=== PATIENT | female | born 1965 | race Caucasian/White ===

== ENCOUNTER 2020-08-29 20:01 | Emergency (ER) | payer MEDICARE ==
[~2020-08-29] VITALS: Ht 177.8 cm; Wt 81.7 kg
[2020-08-29 20:37] LABS: BASOPHILS ABSOLUTE AUTO 0.03 K/mm3 (0.00-0.23); BASOPHILS PERCENT AUTO 0 % (0-2); EOSINOPHILS ABSOLUTE AUTO 0.03 K/mm3 (0.00-0.68); EOSINOPHILS PERCENT AUTO 0 % (0-6); Hematocrit 46.1 % (33.0-51.0); Hemoglobin 16.2 g/dL (11.5-16.0); IMMATURE GRAN ABSOLUTE AUTO 0.04 K/mm3 (0.00-0.10); IMMATURE GRAN PERCENT AUTO 0 % (0-1); LYMPHOCYTES ABSOLUTE AUTO 0.98 K/mm3 (0.84-5.20); LYMPHOCYTES PERCENT AUTO 10 % (21-46); MONOCYTES ABSOLUTE AUTO 0.61 K/mm3 (0.16-1.47); MONOCYTES PERCENT AUTO 6 % (4-13); Mean Corpuscular HGB 31.5 pg (26.0-34.0); Mean Corpuscular HGB Conc 35.1 g/dL (31.5-36.5); Mean Corpuscular Volume 90 fL (80-100); Mean Platelet Volume 10.8 fL (9.1-12.4); NEUTROPHILS ABSOLUTE AUTO 8.19 K/mm3 (1.96-9.15); NEUTROPHILS PERCENT AUTO 83 % (41-73); Platelet Count 316 K/mm3 (150-400); RDW Coefficient Variation 12.8 % (11.7-14.2); RDW Standard Deviation 41.5 fL (35.1-46.3); Red Blood Cell Count 5.15 M/mm3 (3.80-5.20); White Blood Cell Count 9.88 K/mm3 (4.00-11.30)
[2020-08-29 20:53] LABS: Alanine Aminotransfer (ALT/SGP 34 U/L (12-78); Albumin/Globulin Ratio 0.9 (0.8-1.8); Alk Phos 68 U/L (50-136); Anion Gap 9 mmol/L (6-16); Aspartate Aminotrans (AST/SGOT 22 U/L (12-37); Bilirubin, Total 0.7 mg/dL (0.1-1.0); Blood Urea Nitrogen 33 mg/dL (8-24); Bun/Creatinine Ratio 46.4 (12.0-20.0); CO2, Blood 25 mmol/L (21-32); Chloride, Blood 102 mmol/L (98-108); Creatinine, Blood 0.71 mg/dL (0.40-1.00); Globulin, Blood 4.3 g/dL (2.2-4.0); Glomerular Filtration Rate >60 (60-); Glucose, Blood 361 mg/dL (70-99); Potassium, Blood 4.3 mmol/L (3.5-5.5); Sodium, Blood 136 mmol/L (136-145); Total Protein, Blood 8.3 g/dL (6.4-8.2)
[2020-08-30 00:50] LABS: Source, Urine Clean Catch
[2020-08-30 00:52] LABS: Bilirubin, Urine Neg (Neg); Blood, Urine 2+ (Neg); Glucose Qualitative, Urine 4+ (Neg); Ketones, Urine 4+ (Neg); Leukocyte Esterase, Urine Neg (Neg); Nitrite, Urine Neg (Neg); Protein, Urine 3+ (Neg); Urobilinogen, Urine NORM (Normal)
[2020-08-30 00:58] LABS: Amorphous Mod (0-Heavy); Appearance, Urine Hazy (Clear); Bacteria Rare /hpf; Color, Urine Yellow (P-Yellow); Red Blood Cells, Urine 0-2 /hpf (0-2); Squamous Epithelial Cells Few /hpf (Few); White Blood Cells, Urine Not Seen /hpf (0-5)
[2020-08-30 01:15] LABS: U Amphetamine Screen DETECTED; U Barbituate Screen Not Detected; U Benzodiazapine Screen Not Detected; U Buprenorphine Screen Not Detected; U Cannabinoids Screen Not Detected; U Cocaine Screen Not Detected; U Methadone Screen Not Detected; U Methamphetamine Screen DETECTED; U Opiates Screen Not Detected; U Oxycodone Screen Not Detected; U Phencyclidine Screen Not Detected; U Propoxyphene Screen Not Detected
[2020-08-30] MEDS ORDERED: Clindamycin HC300 MG PO (02:12)
== END 2020-08-30 04:10 | disposition home or self-care (01) ==
LOC: ER 20:01
PROVIDERS: Emergency Medicine; Physician Assistant
DX: E11.65 Type 2 diabetes mellitus with hyperglycemia (principal); E86.0 Dehydration; E11.40 Type 2 diabetes mellitus with diabetic neuropathy, unspecified
CPT/HCPCS: 51701; 71045; 73620; 80053; 81001; 82947; 84484; 85025; 93005; 93010; 96374-59; 96375-59; 96376; 99285-25; J2060; J2405; J7120

== ENCOUNTER 2020-10-27 16:44 | Inpatient (IN) | payer MEDICARE ==
[~2020-10-27] VITALS: Ht 177.8 cm; Wt 89.5 kg
[~2020-10-27 16:44] MED LIST: Clindamycin HC300 MG PO
[2020-10-27 17:38] LABS: BASOPHILS ABSOLUTE AUTO 0.07 K/mm3 (0.00-0.23); BASOPHILS PERCENT AUTO 0 % (0-2); EOSINOPHILS ABSOLUTE AUTO 0.05 K/mm3 (0.00-0.68); EOSINOPHILS PERCENT AUTO 0 % (0-6); Hematocrit 45.5 % (33.0-51.0); Hemoglobin 15.2 g/dL (11.5-16.0); IMMATURE GRAN ABSOLUTE AUTO 0.08 K/mm3 (0.00-0.10); IMMATURE GRAN PERCENT AUTO 0 % (0-1); LYMPHOCYTES ABSOLUTE AUTO 0.38 K/mm3 (0.84-5.20); LYMPHOCYTES PERCENT AUTO 2 % (21-46); MONOCYTES ABSOLUTE AUTO 1.29 K/mm3 (0.16-1.47); MONOCYTES PERCENT AUTO 7 % (4-13); Mean Corpuscular HGB 31.5 pg (26.0-34.0); Mean Corpuscular HGB Conc 33.4 g/dL (31.5-36.5); Mean Corpuscular Volume 94 fL (80-100); Mean Platelet Volume 11.3 fL (9.1-12.4); NEUTROPHILS ABSOLUTE AUTO 17.09 K/mm3 (1.96-9.15); NEUTROPHILS PERCENT AUTO 90 % (41-73); Platelet Count 267 K/mm3 (150-400); RDW Coefficient Variation 13.1 % (11.7-14.2); RDW Standard Deviation 45.8 fL (35.1-46.3); Red Blood Cell Count 4.83 M/mm3 (3.80-5.20); White Blood Cell Count 18.96 K/mm3 (4.00-11.30)
[2020-10-27 18:04] LABS: Source, Urine Clean Catch
[2020-10-27 18:10] LABS: Appearance, Urine Clear (Clear); Bilirubin, Urine Neg (Neg); Blood, Urine 1+ (Neg); Color, Urine Yellow (P-Yellow); Glucose Qualitative, Urine 4+ (Neg); Ketones, Urine 3+ (Neg); Leukocyte Esterase, Urine Neg (Neg); Nitrite, Urine Neg (Neg); Protein, Urine Neg (Neg); Specific Gravity, Urine 1.015 (1.003-1.022); Urobilinogen, Urine NORM (Normal)
[2020-10-27 18:16] LABS: Ethanol (Alcohol), Blood, Med <3 mg/dL; Magnesium, Blood 2.1 mg/dL (1.6-2.4)
[2020-10-27 18:20] LABS: Bacteria Rare /hpf; Red Blood Cells, Urine 0-2 /hpf (0-2); Squamous Epithelial Cells Few /hpf (Few); White Blood Cells, Urine Rare /hpf (0-5)
[2020-10-27 18:20] LABS: Alanine Aminotransfer (ALT/SGP 29 U/L (12-78); Albumin/Globulin Ratio 0.6 (0.8-1.8); Alk Phos 108 U/L (50-136); Anion Gap 19 mmol/L (6-16); Aspartate Aminotrans (AST/SGOT 13 U/L (12-37); Bilirubin, Total 0.7 mg/dL (0.1-1.0); Blood Urea Nitrogen 26 mg/dL (8-24); Bun/Creatinine Ratio 31.2 (12.0-20.0); C-REACTIVE PROTEIN, EXT RANGE >19.000 mg/dL (0.000-0.300); CO2, Blood 18 mmol/L (21-32); Calcium, Blood 9.4 mg/dL (8.5-10.1); Chloride, Blood 92 mmol/L (98-108); Creatinine, Blood 0.83 mg/dL (0.40-1.00); Globulin, Blood 4.8 g/dL (2.2-4.0); Glomerular Filtration Rate >60 (60-); Glucose, Blood 747 mg/dL (70-99); Potassium, Blood 4.5 mmol/L (3.5-5.5); Sodium, Blood 129 mmol/L (136-145); Total Protein, Blood 7.8 g/dL (6.4-8.2)
[2020-10-27 18:26] LABS: U Oxycodone Screen DETECTED
[2020-10-27 18:27] LABS: U Amphetamine Screen Not Detected; U Barbituate Screen Not Detected; U Benzodiazapine Screen Not Detected; U Buprenorphine Screen Not Detected; U Cannabinoids Screen Not Detected; U Cocaine Screen Not Detected; U Methadone Screen Not Detected; U Methamphetamine Screen Not Detected; U Opiates Screen Not Detected; U Phencyclidine Screen Not Detected; U Propoxyphene Screen Not Detected
[2020-10-27 18:29] LABS: SARS-Cov-2 (COVID-19) PCR, MMC NEGATIVE (NEGATIVE)
[2020-10-27 18:31] LABS: Base Excess Venous -8.6 mmol/L; Bicarbonate Venous 17.9 mmol/L (24.0-30.0); PCO2 Venous 37.1 mmHg (38-42); PO2 Venous 54.9 mmHg (38-42); pH Blood Venous 7.29 (7.34-7.37)
--- NOTE | 2020-10-27 22:00 | NUR ---
RECEIVED HAND OFF FROM Garth MARK RN USING SBAR. TRANSPORTE TO ROOM PCU12 VIA STRETCHER. TRANSFERED SELF TO BED WITH STANDBY ASSIST, TOLERATED WELL. AAO X3, [place], FOLLOWS ALL COMMANDS. ORIENTE TO ROOM, CALL SYSTEM, AND POC, VOICES UNDERSTANDING. RESPIRATIONS EVEN AND UNLABORED ON ROOM AIR. LUNG SOUNDS CLEAR BILTERALLY. ER COVID TEST NEGATIVE. ABDOMEN SOFT AND NONDISTENDED. BOWEL SOUNDS IN ALL QUADS. LEFT HAND/WRIST 20G SL PIV IS PATENT, FLUSHING WITH EASE. NS AND INSULIN GTT TO BE STARTED. BLE CLEANED AND CELLULITIS DOCUMENTED AND WRAPPED IN CLEAN ABD PADS AND GAUZE. SOCKS PLACED OVER WRAPPING. RATES PAIN AT 9/10, STATES SLIGHTLY IMPROVED AT 8/10 AFTER WRAPPING THEM UP. DENIES FURTHER NEEDS OR WANTS AT THIS TIME. SAFETY MEASURES IN PLACE. ADMISSION ASSESSMENT IN PROGERESS. WILL CONTINUE TO MONITORAND ADDRESS NEEDS THEY ARISE.
[2020-10-27 22:13] LABS: Glucose, Blood 613 mg/dL (70-99)
[2020-10-27 23:43] LABS: Glucose, Blood 551 mg/dL (70-99)
[2020-10-27] MEDS ORDERED: GLIP5 PO ×2 (23:45→23:46)
[2020-10-27] MEDS ORDERED: HUMALOG KW100 UNIT/1 SC ×3 (23:48→23:50)
[2020-10-27] MEDS ORDERED: INSULANI SC (23:51)
[2020-10-28 01:26] LABS: Anion Gap 12 mmol/L (6-16); Blood Urea Nitrogen 26 mg/dL (8-24); Bun/Creatinine Ratio 31.6 (12.0-20.0); CO2, Blood 24 mmol/L (21-32); Calcium, Blood 8.8 mg/dL (8.5-10.1); Chloride, Blood 98 mmol/L (98-108); Creatinine, Blood 0.82 mg/dL (0.40-1.00); Glomerular Filtration Rate >60 (60-); Glucose, Blood 452 mg/dL (70-99); Potassium, Blood 3.6 mmol/L (3.5-5.5); Sodium, Blood 134 mmol/L (136-145)
--- NOTE | 2020-10-28 04:30 | NUR ---
ADMITTED FOR DKA, INSULIN GTT IN PLACE. Q 1HRS CBG'S BEING COMPLETED. CBG CONTINUES TO DROP EXPECTED. LAST CBG WAS 322 AT 0400 CHECK. BLE CELLULITIS UNCHANGED SINCE ADMISSION. SOCKS PLACED TO BLE FOR COMFORT AFTER MD REMOVED WRAPPING TO CHECK WOUNDS HIMSELF. PAIN ADDRESSED PRN. ADMISSIOM COMPLETED. HOME MEDS NEED TO BE COMPLETED, PT WAS UNABLE TO ACCESS MEDICARE SITE FOR LIST. SAFETY MEASURES IN PLACE. WILL CONTINUE TO MONITOR AND GIVE HAND OFF TO ONCOMING SHIFT USING SBAR DURING BEDSIDE REPORT.
[2020-10-28 06:21] LABS: Hematocrit 35.9 % (33.0-51.0); Hemoglobin 12.3 g/dL (11.5-16.0); Mean Corpuscular HGB Conc 34.3 g/dL (31.5-36.5); Mean Corpuscular Volume 94 fL (80-100); Platelet Count 201 K/mm3 (150-400); RDW Standard Deviation 44.6 fL (35.1-46.3); Red Blood Cell Count 3.84 M/mm3 (3.80-5.20); White Blood Cell Count 17.31 K/mm3 (4.00-11.30)
[2020-10-28 06:35] LABS: Alanine Aminotransfer (ALT/SGP 19 U/L (12-78); Albumin, Blood 2.2 g/dL (3.4-5.0); Albumin/Globulin Ratio 0.6 (0.8-1.8); Alk Phos 83 U/L (50-136); Anion Gap 8 mmol/L (6-16); Aspartate Aminotrans (AST/SGOT 7 U/L (12-37); Bilirubin, Total 0.4 mg/dL (0.1-1.0); Blood Urea Nitrogen 21 mg/dL (8-24); Bun/Creatinine Ratio 30.4 (12.0-20.0); CO2, Blood 25 mmol/L (21-32); Chloride, Blood 102 mmol/L (98-108); Creatinine, Blood 0.69 mg/dL (0.40-1.00); Globulin, Blood 3.8 g/dL (2.2-4.0); Glomerular Filtration Rate >60 (60-); Glucose, Blood 263 mg/dL (70-99); Potassium, Blood 3.5 mmol/L (3.5-5.5); Sodium, Blood 135 mmol/L (136-145)
[2020-10-28 06:50] LABS: BAND PERCENT MAN 22 % (0-8); BASOPHILS PERCENT MAN 0 % (0-2); EOSINOPHILS ABSOLUTE MAN 0.34 K/mm3 (0.00-0.68); EOSINOPHILS PERCENT MAN 2 % (0-6); LYMPHOCYTES ABSOLUTE MAN 0.51 K/mm3 (0.84-5.20); LYMPHOCYTES PERCENT MAN 3 % (21-46); METAMYELOCYTE ABSOLUTE MAN 0.34 K/mm3 (0.00-0.00); METAMYELOCYTE PERCENT MAN 2 % (0-0); MONOCYTES ABSOLUTE MAN 0.69 K/mm3 (0.16-1.47); MONOCYTES PERCENT MAN 4 % (4-13); MYELOCYTE ABSOLUTE MAN 0.17 K/mm3 (0.00-0.00); MYELOCYTE PERCENT MAN 1 % (0-0); NEUTROPHILS ABSOLUTE MAN 15.23 K/mm3 (1.96-9.15); SEG NEUTROPHILS PERCENT MAN 66 % (41-73); TOTAL CELLS COUNTED 100
--- NOTE | 2020-10-28 07:38 | NUR ---
ASSUMED CARE: PT RESTING IN BED WITH INSULIN GTT RUNNING AT 6 UNITS PER HOUR. NS RUNNING AT THIS TIME. NO ACUTE NEEDS AT THIS TIME.
[2020-10-28 08:14] LABS: Glucose, Blood 251 mg/dL (70-99)
--- NOTE | 2020-10-28 08:59 | NUR ---
CALL TO DR DAVIES ABOUT TRANSITIONING PT TO [place] INSULIN. ALSO MADE AWARE THAT PT WAS ASKING ABOUT GABAPENTIN FOR NEUROPATHY PAIN. DR VALENZUELA WILL ENTER NEW ORDERS
[2020-10-28 14:53] LABS: Anion Gap 9 mmol/L (6-16); Blood Urea Nitrogen 20 mg/dL (8-24); Bun/Creatinine Ratio 31.1 (12.0-20.0); CO2, Blood 24 mmol/L (21-32); Chloride, Blood 101 mmol/L (98-108); Creatinine, Blood 0.64 mg/dL (0.40-1.00); Glomerular Filtration Rate >60 (60-); Glucose, Blood 300 mg/dL (70-99); Potassium, Blood 3.7 mmol/L (3.5-5.5); Sodium, Blood 134 mmol/L (136-145)
--- NOTE | 2020-10-28 16:32 | NUR ---
PATIENT BROUGHT TO ROOM 421 VIA BY TRANSPORT. PATIENT ASSISTED WITH 1 PERSON ASSIST TO BED. LOWER EXTREMITIES ELEVATED ON PILLOWS. EDUCATED PATIENT TO CALL LIGHT SYSTEM. ICE WATER AND URINAL GIVEN TO PATIENT TO PLACE AT BEDSIDE.
--- NOTE | 2020-10-28 16:39 | NUR ---
REPORT CALLED TO [facility] STAFF. PT TRANSFERED VIA WHEEL CHAIR BY NATIONAL GUARD WORKERS. NO FURTHER NEEDS OR CONCERNS AT THIS TIME.
--- NOTE | 2020-10-28 17:08 | NUR ---
PATIENT COMPLAINING OF PAIN IN LOWER EXTREMEMTIES AND ASKING FOR PRN PAIN MEDICATION. FENTANYL GIVEN PER ORDERS. PATIENT GIVEN CALL LIGHT. PT DENIES OTHER NEEDS AT PRESENT.
[2020-10-28 19:18] LABS: Anion Gap 9 mmol/L (6-16); Blood Urea Nitrogen 21 mg/dL (8-24); Bun/Creatinine Ratio 30.3 (12.0-20.0); CO2, Blood 24 mmol/L (21-32); Calcium, Blood 8.3 mg/dL (8.5-10.1); Chloride, Blood 99 mmol/L (98-108); Creatinine, Blood 0.69 mg/dL (0.40-1.00); Glomerular Filtration Rate >60 (60-); Glucose, Blood 330 mg/dL (70-99); Potassium, Blood 3.8 mmol/L (3.5-5.5); Sodium, Blood 132 mmol/L (136-145)
--- NOTE | 2020-10-29 00:11 | NUR ---
PT SLEEPING OFF AND ON.PT WITH BOTHERSOME INTERMITTENT HICCUPS. PT WAS MEDICATED FOR PAIN IN LEFT LEG AND FOOT EARLIER IN THE EVENING WITH GOOD RESULT. AT APPROXIMATELY 0000, PTS CHEM-BG NOTED TO BE 275.PER SLIDING SCALE 3 UNITS GIVEN SQ. UPON ADMINISTRATION OF INSULIN, PTS BEDDING WAS NOTED TO HAVE BLOOD AND OTHER STAINS. AT THIS TIME THE BEDDING WAS REMOVED AND CLEAN BEDDING WAS REPLACED. DURING THE CHANGE, AN OPEN WOUND THE SIZE OF A SILVER DOLLAR WAS NOTICED WITH PEELED SKIN ON THE LEFT MEDIAL ASPECT OF THE FOOT.IT HAD BEEN PREVIOUSLY INTACT/BUT SOFT. IT APPEARS THE BLISTER HAD BURST. ALSO OF NOTE A LATERAL WOUND WITH SCABBING ON LEFT FOOT IDENTIFIED WELL. PT WITH MULTIPLE ABRASIONS ON BILAT LEGS. LEFT FOOT IS REDDEDNED AND WARM. AREAS OF FOREFOOT PURPLE IN COLOR. WILL REPORT TO DAY SHIFT RN TO CONSULT WITH MD FOR POSSIBLE WOUND CARE CONSULT. WILL DRESS THE LEFT FOOT LOOSELY WITH NON-ADHERENT DRESSING AND WILL CONTINUE TO MONITOR.
[2020-10-29 01:49] LABS: Hematocrit 35.7 % (33.0-51.0); Hemoglobin 12.3 g/dL (11.5-16.0); Mean Corpuscular HGB 31.3 pg (26.0-34.0); Mean Corpuscular HGB Conc 34.5 g/dL (31.5-36.5); Mean Corpuscular Volume 91 fL (80-100); Mean Platelet Volume 10.7 fL (9.1-12.4); Platelet Count 239 K/mm3 (150-400); RDW Coefficient Variation 13.2 % (11.7-14.2); RDW Standard Deviation 44.4 fL (35.1-46.3); Red Blood Cell Count 3.93 M/mm3 (3.80-5.20); White Blood Cell Count 17.66 K/mm3 (4.00-11.30)
[2020-10-29 02:05] LABS: BAND PERCENT MAN 20 % (0-8); BASOPHILS PERCENT MAN 0 % (0-2); EOSINOPHILS PERCENT MAN 0 % (0-6); LYMPHOCYTES PERCENT MAN 4 % (21-46); MONOCYTES ABSOLUTE MAN 1.05 K/mm3 (0.16-1.47); MONOCYTES PERCENT MAN 6 % (4-13); NEUTROPHILS ABSOLUTE MAN 15.89 K/mm3 (1.96-9.15); SEG NEUTROPHILS PERCENT MAN 70 % (41-73); TOTAL CELLS COUNTED 100
[2020-10-29 02:06] LABS: Anion Gap 7 mmol/L (6-16); Blood Urea Nitrogen 21 mg/dL (8-24); Bun/Creatinine Ratio 32.3 (12.0-20.0); CO2, Blood 25 mmol/L (21-32); Calcium, Blood 8.3 mg/dL (8.5-10.1); Chloride, Blood 100 mmol/L (98-108); Creatinine, Blood 0.65 mg/dL (0.40-1.00); Glomerular Filtration Rate >60 (60-); Glucose, Blood 309 mg/dL (70-99); Magnesium, Blood 1.8 mg/dL (1.6-2.4); Phosphorus, Blood 1.9 mg/dL (2.5-4.9); Potassium, Blood 3.4 mmol/L (3.5-5.5); Sodium, Blood 132 mmol/L (136-145)
[2020-10-29 07:55] LABS: Vancomycin, Trough 7.9 ug/mL (5.0-10.0)
--- NOTE | 2020-10-29 08:36 | NUR ---
INAGING HERE AT 0825 TO TAKE PT FOR BILATERAL LOWER EXTREMITY CT.
--- NOTE | 2020-10-29 10:39 | NUR ---
0900 IV ANTIBIOTICS ORIGINALLY HUNG WITH DRIP FLOW METER TUBING BECAUSE THERE WERE NO PUMP CARTRIDGES AVAILABLE. IV'S WERE NOT RUNNING WELL AND WE HAD A DELIVERY OF PUMP CARTRIDGES SO ANTIBIOTICS TUBING WAS CHANGED OVER AND MEDS DELIVERED VIA PUMP.
--- NOTE | 2020-10-29 11:12 | NUR ---
PT HAVING BEDSIDE ECHO AT THIS TIME. DR. FLORES TO SEE FOR POSSIBLE SURGERY, HE HAS ASKED PT BE KEPT NPO AT THIS TIME. WOUND OUTLINED PER DR. DAVIES'S REQUEST.
--- NOTE | 2020-10-29 12:11 | NUR ---
GLUCOSE OF [address] DAVIES CONTACTED. PER DR. DAVIES 15U HUMALOG PER SLIDING SCALE GIVEN BUT WILL HOLD 8U DUE AT 1230 BECAUSE PATIENT IS NOW NPO FOR DR. FLORES.
--- NOTE | 2020-10-29 12:16 | NUR ---
PT TEARFUL OVER SITUATION. SHE STATES SHE DOES NOT WANT TO LOOSE ANY MORE TOES. IS COOPERATIVE WITH CARE AND RESTING COMFORTABLY AT THIS TIME.
--- NOTE | 2020-10-29 13:08 | NUR ---
Echocardiogram completed.
--- NOTE | 2020-10-29 14:44 | NUR ---
DR. FLORES CONSULT WITH PATIENT. PT WILL MOST LIKELY BE GOING INTO THE OR AT 1600 TODAY. THE GOAL IS TO DEBRIDE WOUND WITH THE GOAL OF SAVING THE FOOT. PT HAD OPPURTUNITY TO ASK QUESTIONS.
--- NOTE | 2020-10-29 15:25 | NUR ---
DR. DAVIES CALLED WONDERING ABOUT CONSULT WITH DR. FLORES. DR. FLORES FEELS THE CASE WILL GO AT 1600. DR. DAVIES REQUESTING CBG NOW AND DOSE PER HIGH SLIDING SCALE. BOTH ANTIBIOTICS DUE TO START AT 1600, CAN HOLD THE CLINDAMYCIN IF NEEDED BUT SHOULD RECEIVE THE PENICILLIN DIRECTED.
--- NOTE | 2020-10-29 16:05 | NUR ---
RESTIMG COMFORTABLY. FENTANYL WORKING WELL FOR PAIN. ANTIBIOTICS INFUSING. STILL WAITING TO GO TO THE OR.
--- NOTE | 2020-10-29 17:01 | NUR ---
CALL FROM MADDISON AT [facility] OR. THEY WILL BE HERE IN THE NEXT 15-30 MINUTES AND ARE REQUESTING SHE EMPTY HER BLADDER BEFORE THEY ARRIVE.
--- NOTE | 2020-10-29 17:23 | NUR ---
PT TAKEN TO OR.
--- NOTE | 2020-10-29 17:52 | NUR ---
PT CURRENTLY IN OR. WAS NPO SINCE AFTER BREAKFAST IN PREP FOR SURGERY. CBG'S AND HUMALOG GIVEN PER DR. DAVIES WITH A HIGH SLIDING SCALE. DID NOT RECEIVED ANY OF THE HUMALOG Q6 HOUR. DR. FLORES TO DO IRRIGATION AND DEBRIDMENT. DR. DEUTSCH SPOKE WITH DR. SAEED AND DR. FLORES ABOUT PT'S AQUITY OF CARE BEING GREATER THAN WE CAN ACCOMIDATE. THEY WILL MAKE TO DECISION TO TRANSFER TO PCU. PT TEARFUL ABOUT POSSIBLE AMPUTATION AND LACK OF SUPPORT AT HOME. CBG RANGED FROM 300-400 TODAY. BARBARA WORKS VERY WELL FOR HER PAIN.
--- NOTE | 2020-10-30 00:38 | NUR ---
2100-RECIEVED REPORT FERN PERKINS, PT ARRIVED VIA BED, A+OX4, LS CLEAR, VSS, PT MEDICATED FOR PAIN PT GIVEN FOOD FROM [place] DR FLORES CALLED NEW ORDERS FOR NPO-PT INFORMED 0000-PT RESTING QUIETLY
[2020-10-30 04:26] LABS: Mean Corpuscular HGB 31.3 pg (26.0-34.0); Mean Corpuscular HGB Conc 33.3 g/dL (31.5-36.5); Mean Corpuscular Volume 94 fL (80-100); Mean Platelet Volume 11.1 fL (9.1-12.4); Platelet Count 233 K/mm3 (150-400); RDW Coefficient Variation 13.8 % (11.7-14.2); Red Blood Cell Count 4.15 M/mm3 (3.80-5.20); White Blood Cell Count 14.88 K/mm3 (4.00-11.30)
[2020-10-30 04:44] LABS: Anion Gap 4 mmol/L (6-16); Blood Urea Nitrogen 26 mg/dL (8-24); Bun/Creatinine Ratio 33.3 (12.0-20.0); CO2, Blood 25 mmol/L (21-32); Chloride, Blood 104 mmol/L (98-108); Creatinine, Blood 0.78 mg/dL (0.40-1.00); Glomerular Filtration Rate >60 (60-); Glucose, Blood 319 mg/dL (70-99); Sodium, Blood 133 mmol/L (136-145)
--- NOTE | 2020-10-30 04:51 | NUR ---
PT RESTING QUIETLY IN BED, WOUND VAC REMAINS IN PLACE AND FUNTIONING PROPERLY, PT MADE NPO AT MIDNIGHT FOR POTENTIAL SURGERY PER DR. FLORES VSS, NO ACUTE CHANGES
[2020-10-30 05:44] LABS: BAND PERCENT MAN 17 % (0-8); BASOPHILS PERCENT MAN 0 % (0-2); EOSINOPHILS PERCENT MAN 0 % (0-6); LYMPHOCYTES ABSOLUTE MAN 2.82 K/mm3 (0.84-5.20); LYMPHOCYTES PERCENT MAN 19 % (21-46); MONOCYTES ABSOLUTE MAN 1.19 K/mm3 (0.16-1.47); MONOCYTES PERCENT MAN 8 % (4-13); NEUTROPHILS ABSOLUTE MAN 10.86 K/mm3 (1.96-9.15); SEG NEUTROPHILS PERCENT MAN 56 % (41-73); TOTAL CELLS COUNTED 100
--- NOTE | 2020-10-30 06:30 | NUR ---
PT RESTING QUIETLY IN BED, VSS, NO ACUTE CHANGES, WILL REPORT TO AM NURSE AND TRANSFER CARE
--- NOTE | 2020-10-30 08:17 | NUR ---
CALLBETZY DAVIES REGARDING INSULIN DOSE DUE TO PT BEING NPO. DR. DAVIES CHANGED HUMALOG TO A MEDIUM SLIDING SCALE AND STATED TO HOLD SCHEDULED DOSE OF HUMALOG 8U AND TO DECREASE SEMGLEE TO 30U.
--- NOTE | 2020-10-30 11:46 | NUR ---
PT AND I TALKED ABOUTTHE NEED FOR FURTHER SURGERY. SHE STATES SHE DOES NOT WANT MORE SURGERY, ESPICIALLY A BKA BECAUSE OF VANITY, IS READY TO AND KARMA. PT ALLUDES TO A FAILED SUICIDE ATTEMPTLAST YEAR. SHE FEELS BEING ILL IS HER PENANCE FOR NOT TAKING CUSTODY OF HER DAUGHTER.DAUGHTER WAS MOLESTED A CHILD.
--- NOTE | 2020-10-30 12:59 | NUR ---
PT RESTING COMFORTABLY, WATCHING TV ON IPAD. STILL WAITING FOR FOOD TRAY TO ARRIVE AT 1330. WILL DOSE WITH HUMALOG AT THAT TIME. WILL HOLD DOSE OF HUMALOG 8U PER DR[address] DAVIES THIS MORNING. THIS IS BEING HELD BECAUSE PT HAS NOT HAD FOOD YET TODAY.
--- NOTE | 2020-10-30 16:09 | NUR ---
PHONE CALL WITH DR. DAVIES TO CLARIFY HUMALOG DOSING. PT IS SCHEDULED TO RECEINVE 8U PLUS COVERAGE BY HIGH SLIDING SCALE. THIS EQUALS 17U TOTAL OF HUMALOG. DR. DAVIES CONFIRMED THIS DOSE.
--- NOTE | 2020-10-30 16:43 | NUR ---
WOUND VAC IN PLACE AND FUNCTIONING PROPERLY. HAS HAD NO PAIN MEDICATION TODAY. DIFFICULTY KEEPING FOOT ELEVATED DUE TO NUMBNESS AND INATTENTION TO POSITIONING. IS EATING WELL AND REQUESTED A SANDWICH AFTER EATING 100% OF HER LUNCH.
--- NOTE | 2020-10-30 18:57 | NUR ---
CONSULTWITH DR. FLORES TODAY. DR. FLORES CONSULTED WITH DR MENDEZ WHO FEELS THE FOOT MAY BE ABLE TO SAVE WITH THE AMPUTATION OF TOES TO CREATE A FLAP TO COVER WOUND. DR. FLORES ALSO WANTS TO CONSULT WITH VASCULAR SURGEON REGARDING LIMB SALVAGE INCASE OF NEED FOR BKA. PT STILL REFUSES BKA. HAS WOUND VAC IN PLACE AND OPERATING WELL. CMG'SIN THE 200'S TODAY. PT NO LONGER NPO AND TOLERATING FOOD/FLUIDS WELL. STILL RECEIVING ANTIBIOTICS. REQUIRED ONLY 1 DOSE OF FNETANYL TODAY. MOOD IS IMPROVED TODAY WITH THE KNOWLEDGE THAT SHE MAY ONLY NEED TOES AMPUTATED. VSS.
--- NOTE | 2020-10-30 20:40 | NUR ---
PATIENT WATCHING TV ON DENIES NAUSEA AT THIS TIME AND STATES PAIN IS TOLERABLE AT THIS TIME. PATIENT GIVEN DIET PEPSI AND POWERGLIDE IN LEFT UPPER EXTREMITY FLUSHED WITH 10 CC NS. CALL LIGHT WITHIN REACH AND BED IN LOWEST LOCKED POSITION.
--- NOTE | 2020-10-30 22:41 | NUR ---
PATIENT TALKING ON PHONE WITH A FRIEND. DENIES ANY NEEDS AT THIS TIME. CALL LIGHT WITHIN REACH AND BED IN LOWEST LOCKED POSITION.
--- NOTE | 2020-10-31 00:56 | NUR ---
PATIENT REPOSITIONED IN BED AND MEDICATED FOR PAIN. PATIENT BROUGHT IPAD TO WATCH A SHOW PER PATIENT REQUEST. CALL LIGHT WITHIN REACH AND BED IN LOWEST LOCKED POSITION.
--- NOTE | 2020-10-31 02:21 | NUR ---
PATIENT RESTING COMFORTABLY IN BED. CALL LIGHT WITHIN REACH AND BED IN LOWEST LOCKED POSITION.
--- NOTE | 2020-10-31 04:04 | NUR ---
PATIENT RESTING COMFORTABLY AND CALL LIGHT WITHIN REACH AND BED IN LOWEST LOCKED POSITION.
--- NOTE | 2020-10-31 06:10 | NUR ---
PATIENT RESTING QUIETLY IN BED. NO ACUTE CHANGES THROUGHOUT SHIFT. VSS
[2020-10-31 06:20] LABS: BASOPHILS ABSOLUTE AUTO 0.06 K/mm3 (0.00-0.23); BASOPHILS PERCENT AUTO 0 % (0-2); EOSINOPHILS ABSOLUTE AUTO 0.39 K/mm3 (0.00-0.68); EOSINOPHILS PERCENT AUTO 3 % (0-6); Hematocrit 34.2 % (33.0-51.0); Hemoglobin 11.5 g/dL (11.5-16.0); IMMATURE GRAN ABSOLUTE AUTO 0.15 K/mm3 (0.00-0.10); IMMATURE GRAN PERCENT AUTO 1 % (0-1); LYMPHOCYTES ABSOLUTE AUTO 1.92 K/mm3 (0.84-5.20); LYMPHOCYTES PERCENT AUTO 13 % (21-46); MONOCYTES ABSOLUTE AUTO 1.12 K/mm3 (0.16-1.47); MONOCYTES PERCENT AUTO 8 % (4-13); Mean Corpuscular HGB 31.6 pg (26.0-34.0); Mean Corpuscular HGB Conc 33.6 g/dL (31.5-36.5); Mean Corpuscular Volume 94 fL (80-100); Mean Platelet Volume 10.6 fL (9.1-12.4); NEUTROPHILS ABSOLUTE AUTO 11.11 K/mm3 (1.96-9.15); NEUTROPHILS PERCENT AUTO 75 % (41-73); Platelet Count 287 K/mm3 (150-400); RDW Coefficient Variation 14.1 % (11.7-14.2); RDW Standard Deviation 48.5 fL (35.1-46.3); Red Blood Cell Count 3.64 M/mm3 (3.80-5.20); White Blood Cell Count 14.75 K/mm3 (4.00-11.30)
[2020-10-31 06:52] LABS: Albumin, Blood 1.7 g/dL (3.4-5.0); Anion Gap 5 mmol/L (6-16); Blood Urea Nitrogen 19 mg/dL (8-24); Bun/Creatinine Ratio 26.6 (12.0-20.0); CO2, Blood 27 mmol/L (21-32); Calcium, Blood 7.8 mg/dL (8.5-10.1); Chloride, Blood 104 mmol/L (98-108); Creatinine, Blood 0.71 mg/dL (0.40-1.00); Glomerular Filtration Rate >60 (60-); Glucose, Blood 163 mg/dL (70-99); Phosphorus, Blood 2.5 mg/dL (2.5-4.9); Potassium, Blood 3.6 mmol/L (3.5-5.5); Sodium, Blood 136 mmol/L (136-145)
--- NOTE | 2020-10-31 11:10 | NUR ---
PT TO HEART CENTER VIA BED WITH CHART.
--- NOTE | 2020-10-31 15:20 | NUR ---
PT TO HEART [facility] RECOVERY ROOM POST PROCEDURE. PT WITH R FEMORAL ACCESS WITH SUCCESSFUL ANGIOSEAL IN PLACE. NO BLEEDING, OOZING OR HEMATOMA NOTED. PT ALSO WITH L DP ACCESS SITE. MANUAL PRESSURE HELD TO SITE [id number], ARPIT DRESSING APPLIED, NO BLEEDING, OOZING OR HEMATOMA NOTED. PT REMAINS MILDLY SEDATED AND AWAKES TO VERBAL STIMULI. VSS. PT REPORTS 7/10 L FOOT PAIN. EXPLAINED TO PT THE PAIN COULD BE FROM REPROFUSION OF BLOOD TO HER FOOT. PT DENIES ANY NEEDS AT THIS TIME. WILL CONTINUE TO MONITOR.
--- NOTE | 2020-10-31 16:11 | NUR ---
PT SITTING UP 30 DEGREES, R FEMORAL SITE STABLE WITH NO BLEEDING, OOZING OR HEMATOMA. PT EATING A CHEESE STICK. L DP SITE IS STABLE WITH NO BLEEDING, OOZING OR HEMATOMA NOTED. VSS. PT DENIES ANY NEEDS AT THIS TIME.
--- NOTE | 2020-10-31 16:55 | NUR ---
Assumed care of pateint in the heart center recovery. Right groin and left pedal site are stable no bleeding noted, no hematoma noted. Dr. Bruno verified that he did want the heparin gtt started and will have Dr. Maxwell decide about discontinuing it when surgery is scheduled.
[2020-10-31 17:14] LABS: International Normalized Ratio 1.03; Prothrombin Time Results 11.1 Sec (9.7-11.5)
--- NOTE | 2020-10-31 18:31 | NUR ---
SHIFT SUMMARY PT RESTING IN BED T/O THE DAY. VSS. PT TO HEART CENTER AT 1100, BACK TO ROOM AT 1710. RIGHT GROIN SOFT, NO BLEED OR HEMATOMA, ANGIOSEAL DRSG CDI. GAUZE DRSG TO TOP OF FOOT CDI, NO BLEEDING NOTED. WOUND VAC TO LEFT FOOT IN PLACE, DRAINING SCANT BLOODY DRAINAGE. MEDICATED WITH PRN PAIN MEDS PER EMAR. HEPARIN DRIP TO BE STARTED THIS EVENING PER DR. NEW. WILL CONTINUE TO MONITOR AND REPORT OFF TO SLEEPING ROOM CLEANER RN.
--- NOTE | 2020-10-31 23:46 | NUR ---
LATE ENTRY: PT'S BLOOD SUGAR AT HS WAS 113, INSULIN WAS ORDERED FOR HS. CALLED MD CARTAGENA TO DISCUSS THIS. MD CARTAGENA GAVE ME AN ORDER TO "HOLD HS INSULIN FOR TONIGHT." PT WAS INFORMED AND STATED "I NORMALLY NEVER TAKE INSULIN AT NIGHT." WILL RECHECK BLOOD SUGAR ORDERED.
[2020-11-01 02:33] LABS: BASOPHILS ABSOLUTE AUTO 0.06 K/mm3 (0.00-0.23); BASOPHILS PERCENT AUTO 0 % (0-2); EOSINOPHILS ABSOLUTE AUTO 0.27 K/mm3 (0.00-0.68); EOSINOPHILS PERCENT AUTO 2 % (0-6); Hematocrit 34.3 % (33.0-51.0); Hemoglobin 11.5 g/dL (11.5-16.0); IMMATURE GRAN ABSOLUTE AUTO 0.16 K/mm3 (0.00-0.10); IMMATURE GRAN PERCENT AUTO 1 % (0-1); LYMPHOCYTES PERCENT AUTO 16 % (21-46); MONOCYTES ABSOLUTE AUTO 1.07 K/mm3 (0.16-1.47); MONOCYTES PERCENT AUTO 8 % (4-13); Mean Corpuscular HGB 31.8 pg (26.0-34.0); Mean Corpuscular HGB Conc 33.5 g/dL (31.5-36.5); Mean Corpuscular Volume 95 fL (80-100); Mean Platelet Volume 10.7 fL (9.1-12.4); NEUTROPHILS ABSOLUTE AUTO 10.13 K/mm3 (1.96-9.15); NEUTROPHILS PERCENT AUTO 73 % (41-73); Platelet Count 319 K/mm3 (150-400); RDW Coefficient Variation 14.2 % (11.7-14.2); RDW Standard Deviation 49.9 fL (35.1-46.3); Red Blood Cell Count 3.62 M/mm3 (3.80-5.20); White Blood Cell Count 13.99 K/mm3 (4.00-11.30)
[2020-11-01 02:53] LABS: Albumin, Blood 1.6 g/dL (3.4-5.0); Anion Gap 2 mmol/L (6-16); Blood Urea Nitrogen 14 mg/dL (8-24); Bun/Creatinine Ratio 20.4 (12.0-20.0); CO2, Blood 30 mmol/L (21-32); Calcium, Blood 8.1 mg/dL (8.5-10.1); Chloride, Blood 105 mmol/L (98-108); Creatinine, Blood 0.69 mg/dL (0.40-1.00); Glomerular Filtration Rate >60 (60-); Glucose, Blood 132 mg/dL (70-99); Phosphorus, Blood 3.5 mg/dL (2.5-4.9); Potassium, Blood 3.8 mmol/L (3.5-5.5); Sodium, Blood 137 mmol/L (136-145)
--- NOTE | 2020-11-01 03:11 | NUR ---
PT HEPARIN DRIP INCREASED TO 17U/KG/HR (26.2 ML/HR) PER PHARMACY CONSULT. BOLUS OF 3900U HEPARIN ALSO GIVEN IV PER PHARMACY CONSULT.
--- NOTE | 2020-11-01 05:22 | NUR ---
JERRELL HAS HAD A QUIET NIGHT, AFTER SETTLING BACK IN AFTER HER PROCEDURE DURING DAY SHIFT. SHE HAS A ANGIOSEAL DRESSING TO HER RIGHT GROIN WHERE VASCULAR ACCESS WAS ATTAINED WHICH IS DRY AND INTACT. THIS SITE WAS CHECKED SEVERAL TIMES THIS SHIFT, AND IT HAS REMAINED INTACT, SOFT WITHOUT SIGNS OF SWELLING OR INFECTION. SHE ALSO HAS A WOUND VAC TO HER LEFT FOOT, WHICH HAS A GOOD SEAL, AND IS PRODUCING MINIMAL AMOUNTS OF DRAINAGE. SHE WAS COMPLAINING OF PAIN IN HER LEFT FOOT, AND WAS MEDICATED WITH NORCO TO GOOD EFFECT. SHE CONTINUES TO RECEIVE IV ANTIBIOTICS THROUGH THE NIGHT, WITH THE TIMES BEING ADVANCED TO TRY AND GET THEM BACK ON SCHEDULE DUE TO THE DOSE THAT WAS MISSED TODAY WHILE THE PATIENT WAS OFF THE UNIT. SHE WILL BE HAVING A PROCEDURE WITH MACKENZIE FLORES AND TOMORROW, AND HAS THUS BEEN NPO AFTER MIDNIGHT.
--- NOTE | 2020-11-01 08:57 | NUR ---
CALLED AND STATED TO STOP HEPARINE DRIP FOR PROCEDURE. DRIP TURNED OFF AT 0852 PER TELEPHONE ORDER.
--- NOTE | 2020-11-01 09:49 | NUR ---
PATIENT RESTING IN LEFT LATERAL POSITION. RESPIRATIONS EVEN AND UNLABORED. PATIENT STATES FENTANYL HELPED WITH PAIN. PATIENT VERY TEARY CONCERNED ABOUT POSSIBLY NEEDING AMPUTATION. THIS NURSE SITTING AT BEDSIDE LETTING PATIENT TALK ABOUT CONCERNS AND FEARS. PT STATES SHE IS FEELING VERY ALONE AND HOPES LEAD APPLICATIONS DEVELOPER HAS GOOD RESOURCES FOR HER TO USE ON DISCHARGE. WILL CONTINUE TO MONITOR AND CHECK ON PATIENT.CALL LIGHT IN REACH
--- NOTE | 2020-11-01 12:54 | NUR ---
PATIENT RESTING IN BED. REQUESTING PAIN MEDICATION FOR 8/10 PAIN IN LEGS.FENTANYL GIVEN PER PRN ORDERS. PATIENT IN BETTER SPIRITS THAN THIS MORNING. INFORMED PATIENT THAT HIS PROCEDURE IS NOW MOVED TO 1700. OFFERED PATIENT A BED BATH AND ORAL CARE. PATIENT DECLINED. WOUND VAC STILL RUNNING WITH NO PROBLEMS. CALLLIGHT INREACH.
--- NOTE | 2020-11-01 14:34 | NUR ---
patient resting in bed. sleeping with even and unlabored respirations. call light in reach
--- NOTE | 2020-11-01 16:49 | NUR ---
LATE ENTRY: AND AT BEDSIDE SPEAKING TO PATIENT AT 1635. PATIENT USING URINAL WITH GOOD OUTPUT. CALL LIGHT IN REACH.
--- NOTE | 2020-11-01 17:08 | NUR ---
PATIENT TRANSFERRED TO [facility] VIA 1 PERSON ASSIST TO GO TO OR/ REPORT GIVEN TO YAHAIRA PERKINSRECTANGULAR TANK COOPER VAC AND IV PUMP TAKEN WITH PATIENT.
--- NOTE | 2020-11-01 17:36 | NUR ---
WHILE PATIENT IN OR ALL LINENS ON BED CHANGED, TRASHS TAKEN OUT OF ROOM.
--- NOTE | 2020-11-01 17:40 | NUR ---
PT RECENTLY TO [facility] BY [facility] WITH RN. History, Chart, Medications and Allergies reviewed before start of procedure. Lungs clear T/O to Auscultation. Patient confirms NPO status and agrees with scheduled surgery. Pre-Op teaching done. Pt verbalizes understanding.
--- NOTE | 2020-11-01 20:41 | NUR ---
PT RESTING COMFORTABLY IN BED, LT FOOT WITH ZACH WRAP IN PLACE, DRY AND INTACT, ELEVATED ON PILLOW. PT DENIES PAIN, SAYS THAT IT FEELS LIKE HIS BIG TOEIS"STILL THERE." TAKING PO FLUIDS AND FOOD WITHOUT NAUSEA. IV RUNNING WELL THROUGH BOTH PORTS. HOB ELEVATED 30 DEGREES.
--- NOTE | 2020-11-02 01:59 | NUR ---
PT HAVING NAUSEA, ZOFRAN GIVEN BY NICKOLAS PRATHER RN.
--- NOTE | 2020-11-02 03:10 | NUR ---
NEW HEPARIN BAG HUNG, INFUSION RATE INCREASED TO 19U/KG/HR AND 3900U BOLUS GIVEN PER PHARMACY CONSULT. DOSE VERIFIED WITH NICKOLAS PRATHER RN. ALSO, PT CONINUES TO COMPLAIN OF NAUSEA, AND "ACID REFLUX" REGLAN GIVEN.
--- NOTE | 2020-11-02 04:50 | NUR ---
SUMAN HAS OVERALL HAD A GOOD EVENING/NIGHT AFTER RETURNING TO THE UNIT AFTER HER SURGERY. THE ZACH WRAP DRESSING TO HER LEFT FOOT REMAINS DRY AND INTACT, AND HAS BEEN ELEVATED SINCE HER RETURN. SHE HAS DONE WELL WITH PAIN CONTROL, ONLY REQUIRING ONE DOSE OF ORAL PAIN MEDICINE TONIGHT. SHE DID HAVE A BRIEF EPISODE OF NAUSEA AND ACID REFLUX, WHICH SHE WAS GIVEN ZOFRAN AND REGLAN, WHICH SEEMED TO BE HELPFUL. HER HEPARIN THERAPY WAS CONTINUED ON HER RETURN TO THE UNIT, AND IS NOW RUNNING AT 19U/KG/HR. HER APPETITE HAS BEEN GOOD, AND SHE HAS BEEN DOING WELL WITH EATING, OTHER THAN THE AFOREMENTIONED PERIOD OF NAUSEA. SHE IS USING THE URINAL TO VOID, AND IS PRODUCING ADEQUATE AMOUNTS OF CLEAR YELLOW URINE.
--- NOTE | 2020-11-02 18:25 | NUR ---
SHIFT SUMMARY PT RESTING IN BED T/O THE SHIFT. ALERT AND ORIENTED X4, LEFT FOOT DRSG CDI, NO BLEEDING NOTED. C/O PAIN TO LLE, MEDICATED WITH PRN PAIN MEDS PER ORDERS, SEE EMAR. VSS. WORKED WITH PHYSICAL THERAPY AND TOLERATED WELL. PT IN GOOD SPIRITS TODAY. HOPEFUL ABOUT DISCHARGE PLANNING TO [facility] FOR RE[facility]AB. WILL CONTINUE TO MONITOR AND REPORT OFF TO [facility]LL[facility] COORDINATOR RN.
--- NOTE | 2020-11-02 23:46 | NUR ---
PATIENT RESTING IN BED. CALL LIGHT WITHIN REACH AND BED IN LOWEST LOCKED POSITION.
--- NOTE | 2020-11-03 03:09 | NUR ---
PATIENT SLEEPING. CALL LIGHT WITHIN REACH AND BED IN LOWEST LOCKED POSITION.
--- NOTE | 2020-11-03 05:31 | NUR ---
SHIFT SUMMARY PATIENT SLEPT MOST OF BAG WASHER. MEDICATED FOR PAIN NEEDED. NO ACUTE CHANGES DURING SHIFT. WILL GIVE REPORT TO DAYSHIFT NURSE.
--- NOTE | 2020-11-03 06:29 | NUR ---
DR MENDEZ IN TO SEE PATIENT AND CHANGED DRESSING ON LEFT FOOT. PATIENT TOLERATED WELL. DENIES ANY NEEDS AT THIS TIME. VSS
--- NOTE | 2020-11-03 18:32 | NUR ---
SHIFT SUMMARY PT RESTING IN BED THROUGHOUT SHIFT. UP TO BATHROOM VIA WC AND THEN TO SHOWER. SAT UP IN RECLINER THIS AFTERNOON, TOLERATED WELL. VSS. LEFT FOOT DRSG CDI, NO BLEEDING NOTED. MEDICATED WITH PO PAIN MEDS PER EMAR. WILL CONTINUE TO MONITOR AND REPORT OFF TO [employer] MACHINE OPERATOR RN.
--- NOTE | 2020-11-04 00:07 | NUR ---
PATENT SLEEPING. CALL LIGHT WITHIN REACH AND BED IN LOWEST LOCKED POSITION.
--- NOTE | 2020-11-04 02:36 | NUR ---
PATIENT SLEEPING. CALL LIGHT WITHIN REACH AND BED IN LOWEST LOCKED POSITION.
--- NOTE | 2020-11-04 04:40 | NUR ---
PATIENT SLEEPING. CALL LIGHT WITHIN REACH AND BED IN LOWEST LOCKED POSITION.
--- NOTE | 2020-11-04 05:28 | NUR ---
PATIENT SLEPT MOST OF THE NIGHT EXCEPT UP TO VOID. NO ACUTE CHANGES DURING THE SHIFT. WILL REPORT OF TO THE DAYSHIFT NURSE.
--- NOTE | 2020-11-04 10:43 | NUR ---
ASSUMED CARE FOR PT AT 0700. PT RESTING IN BED, WATCHING TV RIGHT NOW. PT HAS NO COMPLAINTS OF PAIN OR NAUSEA. PLAN FOR PT TODAY. AWAITING PLACEMENT. WILL CONTINUE TO MONITOR.
--- NOTE | 2020-11-04 18:12 | NUR ---
PT WATCHING TV IN BED CURRENTLY. PT HAD SOME COMPLAINTS OF PAIN TODAY. PRN PAIN MEDICATION GIVEN X2 TODAY. PT GOT UP TO CHAIR FOR SEVERAL HOURS TODAY WITH MINIMAL ASSISTANCE WITH TRANSFERS. L FOOT DRESSING APPEARS CDI. PLAN FOR SNF PLACEMENT. WILL MONITOR FOR CHANGES AND REPORT TO ONCOMING RECREATION LEADER RN.
--- NOTE | 2020-11-04 20:55 | NUR ---
PATIENT SITTING UP IN BED WATCHING TV AND STATES PAIN IS AT A 10/10. MEDICATED FOR PAIN AND BROUGHT PATIENT A SANDWICH PER PATIENT REQUEST. WILL CONTINUE TO MONITOR.
--- NOTE | 2020-11-05 00:21 | NUR ---
PATIENT REPOSITIONED IN BED AND WARM BLANKETS FOR COMFORT. DENIES ANY OTHER NEEDS AT THIS TIME. CALL LIGHT WITHIN REACH AND BED IN LOWEST LOCKED POSITION.
--- NOTE | 2020-11-05 03:12 | NUR ---
PATIENT SLEEPING. CALL LIGHT WITHIN REACH AND BED IN LOWEST LOCKED POSITION.
--- NOTE | 2020-11-05 03:43 | NUR ---
PATIENT AWAKE AND STATES SHE WOULD LIKE SOME PAIN MEDICINE FOR 8/10 PAIN IN LEFT FOOT. MEDICATED FOR PAIN. CALL LIGHT WITHIN REACH AND BED IN LOWEST LOCKED POSITION.
--- NOTE | 2020-11-05 05:05 | NUR ---
PATIENT SLEPT ON AND OFF THROUGHOUT THE NIGHT. MEDICATED FOR PAIN PRN. NO ACUTE CHANGES DURING SHIFT. WILL GIVE REPORT TO DAYSHIFT RN.
[2020-11-05] MEDS ORDERED: ESTRADIOL1 M1 PO (09:01)
[2020-11-05] MEDS ORDERED: ALDACTONE100 MG PO (09:01)
[2020-11-05] MEDS ORDERED: ATOR10 PO (09:02)
[2020-11-05] MEDS ORDERED: LISI5 PO (09:03)
[2020-11-05] MEDS ORDERED: MIRT15 PO (09:03)
[2020-11-05] MEDS ORDERED: LAMO25 PO (09:04)
[2020-11-05] MEDS ORDERED: PIOG15 PO (09:05)
[2020-11-05] MEDS ORDERED: DULO30 PO (09:09)
[2020-11-05] MEDS ORDERED: GABA300 PO (09:09)
--- NOTE | 2020-11-05 17:05 | NUR ---
SHIFT SUMMARY PT RESTING IN BED THROUGHOUT THE SHIFT. AMBULATED WITH FWW WITH PHYISCAL THERAPY. LEFT FOOT DRSG CDI. C/O 10/02 PAIN, MEDICATED WITH PRN PAIN MEDS, SEE EMAR. PT STATES PAIN MEDS ARE NOT HELPING. PT BEING RESTARTED ON HOME CYMBALTA TONIGHT WHICH SHE STATES WAS ALSO BEING USED TO HELP WITH PAIN. WILL CONTINUE TO MONITOR AND REPORT OFF TO LONG TERM.
--- NOTE | 2020-11-06 04:57 | NUR ---
SUMAN STARTED THE SHIFT SOMEWHAT EMOTIONAL, EXPRESSING FRUSTRATION ABOUT FINDING A PLACE TO BE [facility]. OTHERWISE, WAS PLEASANT AND CONVERSATIONAL, WATCHING HER MOVIES ON THE IPAD IN THE EVENING. SHE DID COMPLAIN OF PAIN AROUND HS, AND WAS MEDICATED WITH NORCO, AND HAS BEEN SLEEPING SOUNDLY SINCE THEN, ROUSING OCCASIONALLY TO REPOSITION HERSELF OR USE THE URINAL. THIS HAS BEEN HER USUAL PATTERN AT NIGHT. DRESSING TO LEFT FOOT STUMP REMAINS DRY AND INTACT, WITHOUT EDEMA OR SIGNS/SYMPTOMS OF INFECTION IN THE LOWER EXTREMITY PROXIMAL TO THE WOUND.
--- NOTE | 2020-11-06 05:35 | NUR ---
*LATE ENTRY. PTS POWER GLIDE WAS ASSESSED AND FLUSHED WITH 10 CC NS IN EACH PORT AT BEGINNING OF SHIFT AND RECAPPED. BOTH PORTS FLUSH EASILY, AND SHOW NO SIGNS/SYMPTOMS OF OCCLUSION OR INFECTION.
--- NOTE | 2020-11-06 09:14 | NUR ---
PT HAS COCCYX DRESSING, REMOVED AND CLEANED WITH NORMAL SALINE, DRIED WITH 4X4 AND NEW COCCYX DRESSING APPLIED. PT STATES THAT IT WAS PLACED 2 DAYS AGO. AREA IS APPROX 5X4 REDDENED, FLAKY, AND SMALL WOUND. PT STATES THAT SHE IS TRYING TO MOVE OFTEN TO KEEP PRESSURE OFF THE AREA. PT STATES THAT SHE IS NOW STRONGER TO BE ABLE TO MOVE HERSELF. PT ENCOURAGED TO MOVE Q2H AND IF SHE IS NOT ABLE TO ON HER OWN THEN TO CALL FOR ASSISTANCE. BED IN LOWEST POSITION, CALL LIGHT AT BEDSIDE WITH IN REACH. PT IN BED WATCHING TV.
--- NOTE | 2020-11-06 17:58 | NUR ---
CHECKED ON PT AND SHE IS IN BED RESTING AND WATCHING TV. PT STATES THAT THE PAIN "IS THERE" BUT WOULD LIKE TO WAIT A LITTLE LONGER FOR ANY PAIN MEDICATION. PT STATES THAT SHE HAS FOUND A BETTER POSITION TO HELP WITH THE PAIN. PT'S BED IS WET AND BED CHANGED OUT ALONG WITH PT'S GOWN AND PANTS.
--- NOTE | 2020-11-07 05:19 | NUR ---
JERRELL HAS DEMONSTRATED HER USUAL BEHAVIORAL PATTERN FOR ME THIS SHIFT. SOMEWHAT CONVERSANT WHEN I WENT IN TO ASSESS HER AT THE BEGINNING OF THE SHIFT, EXPRESSING FRUSTRATION WITH FINDING PLACEMENT FOR A [facility] LIVING ARRANGEMENT. SHE CONTINUES TO HAVE A [employer] LIFE DRESSING TO HER COCCYX, WHICH DAY SHIFT PASSED ON TO ME WAS CHANGED ON THEIR SHIFT. IT REMAINS DRY AND INTACT. SHE WAS MEDICATED FOR PAIN ONCE THIS SHIFT AT BEDTIME, WHICH HAS BEEN HER USUAL ROUTINE FOR ME. THE DRESSING WITH ZACH WRAP TO HER LEFT FOOT/ANKLE REMAINS DRY AND INTACT, AND HAS BEEN ELEVATED ON PILLOWS DURING THIS SHIFT. ORAL INTAKE IS ADEQUATE, AND SHE IS USING THE URINAL TO VOID. NO BM THIS SHIFT.
--- NOTE | 2020-11-07 10:27 | NUR ---
CHANGED ROOMS FOR PT SHE WAS COLD AND WANTED A MORE PRIVATE ROOM. PT ORIENTED TO ROOM. PT UP IN CHAIR. CALL LIGHT IN REACH.
--- NOTE | 2020-11-07 15:37 | NUR ---
PT UP TO CHAIR AFTER PT WITH PILLOW UNDER BUTTOCK. PT IS SITTING WITH LEGS CROSSED AND ADVISED TO UNCROSS LEGS. PT AWARE OF COMPLICATIONS.
--- NOTE | 2020-11-07 18:19 | NUR ---
COCCYX DRESSING CHANGED. SKIN IS RED, PEELING AND FLAKY. PT STATES THAT IT IS TENDER TO TOUCH. SLIGHT IMPROVEMENT IN SIZE FROM 11/06/20. CLEANED WITH NS AND DRIED.
--- NOTE | 2020-11-07 22:59 | NUR ---
MEDICATIONS ADMINISTERED AT 2146. UNABLE TO DOCUMENT MEDICATION ADMINISTRATION DUE TO [employer] COMPUTER SYSTEM DOWN FOR MAINTENCE UPDATE.
--- NOTE | 2020-11-08 00:49 | NUR ---
PT SLEEPING WITHOUT S/S OF DISTRESS. CALL LIGHT IN PT REACH,SIDE RAILS UP X3 AND BED IN LOW POSITION.
--- NOTE | 2020-11-08 02:26 | NUR ---
PT SLEEPING QUIETLY, NO DISTRESS NOTED. CALL LIGHT IN PT REACH, SIDE RAILS UP X3 AND BED IN LOW POSITION.
[2020-11-08 04:18] LABS: BASOPHILS ABSOLUTE AUTO 0.07 K/mm3 (0.00-0.23); BASOPHILS PERCENT AUTO 1 % (0-2); EOSINOPHILS ABSOLUTE AUTO 0.35 K/mm3 (0.00-0.68); EOSINOPHILS PERCENT AUTO 3 % (0-6); Hematocrit 33.2 % (33.0-51.0); Mean Corpuscular HGB 31.6 pg (26.0-34.0); Mean Corpuscular HGB Conc 33.1 g/dL (31.5-36.5); Mean Corpuscular Volume 95 fL (80-100); Mean Platelet Volume 9.1 fL (9.1-12.4); Platelet Count 708 K/mm3 (150-400); RDW Coefficient Variation 13.2 % (11.7-14.2); RDW Standard Deviation 46.7 fL (35.1-46.3); Red Blood Cell Count 3.48 M/mm3 (3.80-5.20); White Blood Cell Count 10.77 K/mm3 (4.00-11.30)
[2020-11-08 04:22] LABS: IMMATURE GRAN ABSOLUTE AUTO 0.05 K/mm3 (0.00-0.10); IMMATURE GRAN PERCENT AUTO 1 % (0-1); LYMPHOCYTES ABSOLUTE AUTO 2.62 K/mm3 (0.84-5.20); LYMPHOCYTES PERCENT AUTO 24 % (21-46); MONOCYTES ABSOLUTE AUTO 0.98 K/mm3 (0.16-1.47); MONOCYTES PERCENT AUTO 9 % (4-13); NEUTROPHILS PERCENT AUTO 62 % (41-73)
--- NOTE | 2020-11-08 04:47 | NUR ---
PT SLEEPING MOST OF THE NIGHT WITHOUT DIFFICULTY. PT C/O LEFT FOOT PAIN, RATED PAIN 7 OUT OF 10, PT MEDICATED WITH NORCO PO ORDERED BY MD AND LEFT FOOT ELEVATED WITH PILLOWS X2 FOR COMFORT. PT SLEEPING AFTER PAIN MED GIVEN AND REPOSITIONING. SEQUENTIAL DEVICE ON RIGHT LOWER EXTREMITY THROUGHOUT THE NIGHT. DRESSING TO LEFT FOOT REMAINS C/D/I. PT ON IV ANTIBIOTICS DAILY. HS BLOOD GLUCOSE WAS 183, PT RECEIVED SEMGLEE INSULIN BUT DID NOT REQUIRE SLIDING SCALE COVERAGE. PT HAD BEDTIME SNACK. PTS VITAL SIGNS WNL, REMAINS AFEBRILE. LAB IN PTS ROOM AT 0400 TO DRAW BLOOD PER MD ORDERS.
[2020-11-08 04:57] LABS: Albumin, Blood 1.8 g/dL (3.4-5.0); Anion Gap 4 mmol/L (6-16); Blood Urea Nitrogen 21 mg/dL (8-24); Bun/Creatinine Ratio 35.4 (12.0-20.0); CHOL/HDL RATIO 4.4; CO2, Blood 27 mmol/L (21-32); Calcium, Blood 8.4 mg/dL (8.5-10.1); Chloride, Blood 103 mmol/L (98-108); Cholesterol 111 mg/dL (50-200); Creatinine, Blood 0.59 mg/dL (0.40-1.00); Glomerular Filtration Rate >60 (60-); Glucose, Blood 214 mg/dL (70-99); HDL Cholesterol 25 mg/dL (>39); LDL/HDL RATIO 2.5; Low Density Lipoprotein Chol 63 mg/dL (0-110); Phosphorus, Blood 3.4 mg/dL (2.5-4.9); Potassium, Blood 4.3 mmol/L (3.5-5.5); Sodium, Blood 134 mmol/L (136-145); Triglycerides 115 mg/dL (30-160); Very Low Density Lipoprot Chol 23 mg/dL (6-32)
--- NOTE | 2020-11-08 07:48 | NUR ---
CHANGE OF SHIFT REPORT GIVEN PMRN JULIANNA ORRRubi 0715. PT RESTING COMFORTABLY IN BED LOWEST POSITONIION LOCKED W CALL LIGHT IN REACH. ROOM ORGANIZED FREE OF CLUTTER. TECH MARILY: CHEM 207 @ 3438. 6 UNITS ADMIN PER SLIDING SCALE WITNESSED JAR.SERENA LOMAX RN PRIOR TO MORNING MEAL. ADMIN SITE POST R TRICEPT. END NOTE ORSC.CATHY.
--- NOTE | 2020-11-08 11:00 | NUR ---
DR DISCUSSED DC W PT AND [facility] INTERMODAL TRUCK DRIVER REGARDING ANTIBIOTICS CONT. AFTER DC EITHER PO OR IF CONT. IV TO RETURN DAILY TO HOSP FOR IV ANTIBIOTOICS AND DISCUSSED FURNISHING SCOOTER TO PT PRIOR TO DC. END NOTE ORSC.RDS.
[2020-11-08] MEDS ORDERED: CLOP75 PO ×2 (13:01→13:05)
[2020-11-08] MEDS ORDERED: VISBIOME 112.51 EACH PO ×2 (13:03→13:06)
[2020-11-08] MEDS ORDERED: AMOCLA875 PO (13:07)
--- NOTE | 2020-11-08 15:15 | NUR ---
FINAL DC NOTE: IV DCD WNL. CLOTHING FURNISHED TO PT. MEDICATION PRESCRIPTIONS CALLED INTO [facility] PER PT REQUEST. PT TO CONT. WOUND CARE TX W DR MENDEZ W/IN TWO DAYS-PT TO SCHEDULE APPOINTMENT. KNEE SCOOTER SUPPLIED TO PT FOR DC. PHYSICAL THERAPY: DEEDEE AGUILAR ATTEMPTED TO WORK W PT ON SCOOTER AND TRANSFER USAGE- PT NONRECEPTIVE TO EDUCATION. [facility] WAS CALLED: ANTELMO STATED W PT INSURANCE PLAN: MED ADVANTAGE PLAN PT WOULD BE ABLE TO GET GLUCOMETER FROM [employer] FREE OF CHARGE. PT RIDE VIA [employer] PAID BY Call Loop TO PT HOME ADDRESS @6490. END NOTE ORSC.RDS
== END 2020-11-08 15:43 | disposition home or self-care (01) | DRG 853 ==
LOC: ER 16:44 → ORSCIP 19:11 → ICUW 19:11 → ER 19:11 → ICUW 21:00 → PCU 21:00 → ICUW 10-28 00:04 → PCU 10-28 00:04 → ORSCIP 10-28 15:15
PROVIDERS: Emergency Medicine; Emergency Medicine Emergency Medical Services; Internal Medicine; Orthopaedic Surgery; Radiology Diagnostic Radiology; ADMIT Internal Medicine
PROC: 0QBP0ZZ Excision of Left Metatarsal, Open Approach (ICD-10-PCS; 2020-10-29)
PROC: 047Q3ZZ Dilation of Left Anterior Tibial Artery, Percutaneous Approach (ICD-10-PCS; principal; 2020-10-31)
PROC: 047U3ZZ Dilation of Left Peroneal Artery, Percutaneous Approach (ICD-10-PCS; 2020-10-31)
PROC: 047N3ZZ Dilation of Left Popliteal Artery, Percutaneous Approach (ICD-10-PCS; 2020-10-31)
PROC: 0Y6N0ZB Detachment at Left Foot, Partial 2nd Ray, Open Approach (ICD-10-PCS; 2020-11-01)
PROC: 0Y6N0ZC Detachment at Left Foot, Partial 3rd Ray, Open Approach (ICD-10-PCS; 2020-11-01)
PROC: 0Y6N0ZD Detachment at Left Foot, Partial 4th Ray, Open Approach (ICD-10-PCS; 2020-11-01)
PROC: 0Y6N0ZF Detachment at Left Foot, Partial 5th Ray, Open Approach (ICD-10-PCS; 2020-11-01)
DX: A40.0 Sepsis due to streptococcus, group A (principal); E10.10 Type 1 diabetes mellitus with ketoacidosis without coma; A48.0 Gas gangrene; L03.116 Cellulitis of left lower limb; L03.115 Cellulitis of right lower limb; E10.52 Type 1 diabetes mellitus with diabetic peripheral angiopathy with gangrene; I25.10 Atherosclerotic heart disease of native coronary artery without angina pectoris; Z20.822 Contact with and (suspected) exposure to COVID-19; K21.9 Gastro-esophageal reflux disease without esophagitis; E86.0 Dehydration; L97.529 Non-pressure chronic ulcer of other part of left foot with unspecified severity; E10.621 Type 1 diabetes mellitus with foot ulcer; L89.151 Pressure ulcer of sacral region, stage 1; E10.42 Type 1 diabetes mellitus with diabetic polyneuropathy; L89.152 Pressure ulcer of sacral region, stage 2; F17.210 Nicotine dependence, cigarettes, uncomplicated; Z88.8 Allergy status to other drugs, medicaments and biological substances; Z98.890 Other specified postprocedural states; Z95.1 Presence of aortocoronary bypass graft; Z79.4 Long term (current) use of insulin; Z79.899 Other long term (current) drug therapy
CPT/HCPCS: 36415; 37224; 37228; 37232; 71045; 73630; 73701; 75625; 75716; 75774; 76937; 80048; 80053; 80061; 80069; 80202; 81001; 82010; 82803; 82947; 83605; 83690; 83735; 84145; 85025; 85347; 85610; 85651; 85730; 86140; 87040; 87070; 87071; 87075; 87147; 87205; 88307; 88311; 93306; 94762; 96360; 96361; 97110; 97116; 97163; 97530; 99152; 99153; 99285-25; A9270; C1725; C1751; C1760; C1769; C1887; C1894; G0480; J0295; J0696; J1100; J1644; J1650; J1815; J1885; J2250; J2370; J2405; J2540; J2704; J2765; J3010; J3370; J7030; J7042; J7050; J7120; Q9967; U0004

== ENCOUNTER 2020-12-27 08:00 | Day surgery (SDC) | payer MEDICARE ==
[~2020-12-27 08:00] MED LIST changes: +ALDACTONE100 MG PO; +AMOCLA875 PO; +CLOP75 PO; +DULO30 PO; +ESTRADIOL1 M1 PO; +GABA300 PO; +GLIP5 PO; +HUMALOG KW100 UNIT/1 SC; +LAMO25 PO; +LISI5 PO; +MIRT15 PO; +PIOG15 PO; +VISBIOME 112.51 EACH PO
[2020-12-27] MEDS ORDERED: CEFTRIAXONE2 G1 IV (16:22)
== END 2020-12-27 23:59 | disposition home or self-care (01) ==
LOC: WOUND 08:00
DX: E11.621 Type 2 diabetes mellitus with foot ulcer (principal); L97.525 Non-pressure chronic ulcer of other part of left foot with muscle involvement without evidence of necrosis; L97.522 Non-pressure chronic ulcer of other part of left foot with fat layer exposed; L03.116 Cellulitis of left lower limb; M79.672 Pain in left foot; E11.42 Type 2 diabetes mellitus with diabetic polyneuropathy; Z79.4 Long term (current) use of insulin; Z89.432 Acquired absence of left foot; Z87.891 Personal history of nicotine dependence
CPT/HCPCS: 87071; 87075; 87076; 87147; 87185; 87205; G0463

== ENCOUNTER 2020-12-27 13:14 | Day surgery (SDC) | payer MEDICARE ==
[~2020-12-27 13:14] MED LIST changes: +ATOR10 PO; +INSULANI SC
[2020-12-27] MEDS ORDERED: CEFTRIAXONE2 G1 IV (16:22)
[2020-12-27 16:52] LABS: BASOPHILS ABSOLUTE AUTO 0.06 K/mm3 (0.00-0.23); BASOPHILS PERCENT AUTO 0 % (0-2); EOSINOPHILS ABSOLUTE AUTO 0.06 K/mm3 (0.00-0.68); EOSINOPHILS PERCENT AUTO 0 % (0-6); Hemoglobin 11.8 g/dL (11.5-16.0); IMMATURE GRAN ABSOLUTE AUTO 0.07 K/mm3 (0.00-0.10); IMMATURE GRAN PERCENT AUTO 1 % (0-1); LYMPHOCYTES PERCENT AUTO 7 % (21-46); MONOCYTES ABSOLUTE AUTO 1.36 K/mm3 (0.16-1.47); MONOCYTES PERCENT AUTO 9 % (4-13); Mean Corpuscular HGB 29.5 pg (26.0-34.0); Mean Corpuscular HGB Conc 32.8 g/dL (31.5-36.5); Mean Corpuscular Volume 90 fL (80-100); Mean Platelet Volume 10.4 fL (9.1-12.4); NEUTROPHILS ABSOLUTE AUTO 12.14 K/mm3 (1.96-9.15); NEUTROPHILS PERCENT AUTO 83 % (41-73); Platelet Count 568 K/mm3 (150-400); RDW Coefficient Variation 13.1 % (11.7-14.2); RDW Standard Deviation 43.5 fL (35.1-46.3); White Blood Cell Count 14.69 K/mm3 (4.00-11.30)
[2020-12-27 16:59] LABS: Albumin, Blood 2.6 g/dL (3.4-5.0); Albumin/Globulin Ratio 0.4 (0.8-1.8); Bilirubin, Total 0.4 mg/dL (0.1-1.0); Bun/Creatinine Ratio 25.6 (12.0-20.0); Calcium, Blood 9.9 mg/dL (8.5-10.1); Creatinine, Blood 0.98 mg/dL (0.40-1.00); Globulin, Blood 5.8 g/dL (2.2-4.0); Potassium, Blood 3.8 mmol/L (3.5-5.5); Total Protein, Blood 8.4 g/dL (6.4-8.2)
== END 2020-12-27 16:31 | disposition home or self-care (01) ==
LOC: ATC 13:14
PROVIDERS: Nurse Practitioner Family
DX: E11.621 Type 2 diabetes mellitus with foot ulcer (principal); L97.522 Non-pressure chronic ulcer of other part of left foot with fat layer exposed; L97.529 Non-pressure chronic ulcer of other part of left foot with unspecified severity; L03.116 Cellulitis of left lower limb; I10 Essential (primary) hypertension; E11.52 Type 2 diabetes mellitus with diabetic peripheral angiopathy with gangrene; E11.42 Type 2 diabetes mellitus with diabetic polyneuropathy; I25.2 Old myocardial infarction; Z79.4 Long term (current) use of insulin; Z89.432 Acquired absence of left foot; Z88.8 Allergy status to other drugs, medicaments and biological substances
CPT/HCPCS: 80053; 85025; 85651; 96365; C1751; J0696; J2001

== ENCOUNTER 2020-12-28 05:41 | Day surgery (SDC) | payer MEDICARE ==
[~2020-12-28 05:41] MED LIST changes: -ATOR10 PO; +CEFTRIAXONE2 G1 IV; -INSULANI SC
== END 2020-12-28 23:37 | disposition home or self-care (01) ==
LOC: WOUND 05:41
DX: E11.621 Type 2 diabetes mellitus with foot ulcer (principal); L97.528 Non-pressure chronic ulcer of other part of left foot with other specified severity; L03.116 Cellulitis of left lower limb; M79.672 Pain in left foot; E11.42 Type 2 diabetes mellitus with diabetic polyneuropathy; Z79.4 Long term (current) use of insulin; Z89.432 Acquired absence of left foot
CPT/HCPCS: G0463

== ENCOUNTER 2020-12-28 05:55 | Day surgery (SDC) | payer MEDICARE ==
[2021-02-03] MEDS ORDERED: ACET325 PO (23:47)
[2021-02-03] MEDS ORDERED: DULO30 PO (23:48)
[2021-02-03] MEDS ORDERED: FAMO20 PO (23:50)
[2021-02-03] MEDS ORDERED: GABA400 PO (23:51)
[2021-02-04] MEDS ORDERED: HUMALOG KW100 UNIT/1 SC ×2 (00:04)
[2021-02-04] MEDS ORDERED: CEPH500 PO (00:06)
[2021-02-04] MEDS ORDERED: LAMO25 PO (00:08)
[2021-02-04] MEDS ORDERED: ATOR10 PO (00:09)
[2021-02-04] MEDS ORDERED: LISI20 PO (00:10)
[2021-02-04] MEDS ORDERED: AMLO5 PO (00:12)
[2021-02-04] MEDS ORDERED: OXYC5 PO (00:12)
[2021-02-04] MEDS ORDERED: CLOP75 PO (00:13)
[2021-02-04] MEDS ORDERED: MIRT15 PO (00:14)
[2021-02-04] MEDS ORDERED: INSULANPEN SC (00:16)
[2021-02-05] MEDS ORDERED: DOCU100 PO (10:48)
[2021-02-05] MEDS ORDERED: SENNA LAXATIVE8.6 MG PO (10:49)
[2021-02-05] MEDS ORDERED: AMOCLA500 PO (11:11)
== END 2020-12-28 14:07 | disposition home or self-care (01) ==
LOC: ATC 05:55
DX: L03.116 Cellulitis of left lower limb (principal); E11.621 Type 2 diabetes mellitus with foot ulcer; L97.528 Non-pressure chronic ulcer of other part of left foot with other specified severity; E11.42 Type 2 diabetes mellitus with diabetic polyneuropathy; Z79.4 Long term (current) use of insulin; Z89.432 Acquired absence of left foot
CPT/HCPCS: 96365; J0696

== ENCOUNTER 2020-12-29 10:33 | Day surgery (SDC) | payer MEDICARE ==
[2021-02-03] MEDS ORDERED: ACET325 PO (23:47)
[2021-02-03] MEDS ORDERED: DULO30 PO (23:48)
[2021-02-03] MEDS ORDERED: FAMO20 PO (23:50)
[2021-02-03] MEDS ORDERED: GABA400 PO (23:51)
[2021-02-04] MEDS ORDERED: HUMALOG KW100 UNIT/1 SC ×2 (00:04)
[2021-02-04] MEDS ORDERED: CEPH500 PO (00:06)
[2021-02-04] MEDS ORDERED: LAMO25 PO (00:08)
[2021-02-04] MEDS ORDERED: ATOR10 PO (00:09)
[2021-02-04] MEDS ORDERED: LISI20 PO (00:10)
[2021-02-04] MEDS ORDERED: OXYC5 PO (00:12)
[2021-02-04] MEDS ORDERED: AMLO5 PO (00:12)
[2021-02-04] MEDS ORDERED: CLOP75 PO (00:13)
[2021-02-04] MEDS ORDERED: MIRT15 PO (00:14)
[2021-02-04] MEDS ORDERED: INSULANPEN SC (00:16)
[2021-02-05] MEDS ORDERED: DOCU100 PO (10:48)
[2021-02-05] MEDS ORDERED: SENNA LAXATIVE8.6 MG PO (10:49)
[2021-02-05] MEDS ORDERED: AMOCLA500 PO (11:11)
== END 2020-12-29 11:34 | disposition home or self-care (01) ==
LOC: ATC 10:33
DX: L03.116 Cellulitis of left lower limb (principal); E11.621 Type 2 diabetes mellitus with foot ulcer; L97.528 Non-pressure chronic ulcer of other part of left foot with other specified severity; E11.42 Type 2 diabetes mellitus with diabetic polyneuropathy; Z79.4 Long term (current) use of insulin; Z89.432 Acquired absence of left foot
CPT/HCPCS: 96365; J0696

== ENCOUNTER 2020-12-30 05:15 | Day surgery (SDC) | payer MEDICARE ==
--- NOTE | 2020-12-30 14:56 | NUR ---
POWER-GLIDE VERY POSITIONAL TODAY.
[2021-02-03] MEDS ORDERED: ACET325 PO (23:47)
[2021-02-03] MEDS ORDERED: DULO30 PO (23:48)
[2021-02-03] MEDS ORDERED: FAMO20 PO (23:50)
[2021-02-03] MEDS ORDERED: GABA400 PO (23:51)
[2021-02-04] MEDS ORDERED: HUMALOG KW100 UNIT/1 SC ×2 (00:04)
[2021-02-04] MEDS ORDERED: CEPH500 PO (00:06)
[2021-02-04] MEDS ORDERED: LAMO25 PO (00:08)
[2021-02-04] MEDS ORDERED: ATOR10 PO (00:09)
[2021-02-04] MEDS ORDERED: LISI20 PO (00:10)
[2021-02-04] MEDS ORDERED: OXYC5 PO (00:12)
[2021-02-04] MEDS ORDERED: AMLO5 PO (00:12)
[2021-02-04] MEDS ORDERED: CLOP75 PO (00:13)
[2021-02-04] MEDS ORDERED: MIRT15 PO (00:14)
[2021-02-04] MEDS ORDERED: INSULANPEN SC (00:16)
[2021-02-05] MEDS ORDERED: DOCU100 PO (10:48)
[2021-02-05] MEDS ORDERED: SENNA LAXATIVE8.6 MG PO (10:49)
[2021-02-05] MEDS ORDERED: AMOCLA500 PO (11:11)
== END 2020-12-30 14:50 | disposition home or self-care (01) ==
LOC: ATC 05:15
DX: L03.116 Cellulitis of left lower limb (principal); E11.621 Type 2 diabetes mellitus with foot ulcer; L97.528 Non-pressure chronic ulcer of other part of left foot with other specified severity; E11.42 Type 2 diabetes mellitus with diabetic polyneuropathy; Z79.4 Long term (current) use of insulin; Z89.432 Acquired absence of left foot
CPT/HCPCS: 96365; J0696

== ENCOUNTER 2020-12-31 05:39 | Day surgery (SDC) | payer MEDICARE | END 2020-12-31 23:00 | disposition home or self-care (01) | LOC: WOUND 05:39 | DX: E11.621 Type 2 diabetes mellitus with foot ulcer (principal); L97.528 Non-pressure chronic ulcer of other part of left foot with other specified severity; L03.116 Cellulitis of left lower limb; E11.42 Type 2 diabetes mellitus with diabetic polyneuropathy; Z79.4 Long term (current) use of insulin; Z89.432 Acquired absence of left foot | CPT/HCPCS: G0463 ==

== ENCOUNTER 2020-12-31 14:50 | Day surgery (SDC) | payer MEDICARE ==
[2021-02-03] MEDS ORDERED: ACET325 PO (23:47)
[2021-02-03] MEDS ORDERED: DULO30 PO (23:48)
[2021-02-03] MEDS ORDERED: FAMO20 PO (23:50)
[2021-02-03] MEDS ORDERED: GABA400 PO (23:51)
[2021-02-04] MEDS ORDERED: HUMALOG KW100 UNIT/1 SC ×2 (00:04)
[2021-02-04] MEDS ORDERED: CEPH500 PO (00:06)
[2021-02-04] MEDS ORDERED: LAMO25 PO (00:08)
[2021-02-04] MEDS ORDERED: ATOR10 PO (00:09)
[2021-02-04] MEDS ORDERED: LISI20 PO (00:10)
[2021-02-04] MEDS ORDERED: OXYC5 PO (00:12)
[2021-02-04] MEDS ORDERED: AMLO5 PO (00:12)
[2021-02-04] MEDS ORDERED: CLOP75 PO (00:13)
[2021-02-04] MEDS ORDERED: MIRT15 PO (00:14)
[2021-02-04] MEDS ORDERED: INSULANPEN SC (00:16)
[2021-02-05] MEDS ORDERED: DOCU100 PO (10:48)
[2021-02-05] MEDS ORDERED: SENNA LAXATIVE8.6 MG PO (10:49)
[2021-02-05] MEDS ORDERED: AMOCLA500 PO (11:11)
== END 2020-12-31 15:34 | disposition home or self-care (01) ==
LOC: ATC 14:50
DX: E11.621 Type 2 diabetes mellitus with foot ulcer (principal); L97.528 Non-pressure chronic ulcer of other part of left foot with other specified severity; L03.116 Cellulitis of left lower limb; M79.672 Pain in left foot; E11.42 Type 2 diabetes mellitus with diabetic polyneuropathy; E11.52 Type 2 diabetes mellitus with diabetic peripheral angiopathy with gangrene; A48.0 Gas gangrene; Z89.432 Acquired absence of left foot; Z79.4 Long term (current) use of insulin
CPT/HCPCS: 96365; J0696

== ENCOUNTER 2021-01-01 01:07 | Day surgery (SDC) | payer MEDICARE ==
[2021-01-02] MEDS ORDERED: ATOR40TA PO (17:55)
[2021-01-02] MEDS ORDERED: METFORMIN HCL500 M3 PO (17:55)
[2021-01-02] MEDS ORDERED: INSULANPEN SC (17:56)
[2021-01-02] MEDS ORDERED: HUMALOG KW100 UNIT/1 SC (17:57)
[2021-02-03] MEDS ORDERED: ACET325 PO (23:47)
[2021-02-03] MEDS ORDERED: DULO30 PO (23:48)
[2021-02-03] MEDS ORDERED: FAMO20 PO (23:50)
[2021-02-03] MEDS ORDERED: GABA400 PO (23:51)
[2021-02-04] MEDS ORDERED: HUMALOG KW100 UNIT/1 SC ×2 (00:04)
[2021-02-04] MEDS ORDERED: CEPH500 PO (00:06)
[2021-02-04] MEDS ORDERED: LAMO25 PO (00:08)
[2021-02-04] MEDS ORDERED: ATOR10 PO (00:09)
[2021-02-04] MEDS ORDERED: LISI20 PO (00:10)
[2021-02-04] MEDS ORDERED: OXYC5 PO (00:12)
[2021-02-04] MEDS ORDERED: AMLO5 PO (00:12)
[2021-02-04] MEDS ORDERED: CLOP75 PO (00:13)
[2021-02-04] MEDS ORDERED: MIRT15 PO (00:14)
[2021-02-04] MEDS ORDERED: INSULANPEN SC (00:16)
[2021-02-05] MEDS ORDERED: DOCU100 PO (10:48)
[2021-02-05] MEDS ORDERED: SENNA LAXATIVE8.6 MG PO (10:49)
[2021-02-05] MEDS ORDERED: AMOCLA500 PO (11:11)
== END 2021-01-01 22:43 | disposition home or self-care (01) ==
LOC: ATC 01:07
DX: L03.116 Cellulitis of left lower limb (principal); E11.621 Type 2 diabetes mellitus with foot ulcer; L97.528 Non-pressure chronic ulcer of other part of left foot with other specified severity; E11.42 Type 2 diabetes mellitus with diabetic polyneuropathy; Z79.4 Long term (current) use of insulin; Z89.432 Acquired absence of left foot
CPT/HCPCS: 96365; J0696

== ENCOUNTER 2021-01-02 04:09 | Day surgery (SDC) | payer MEDICARE ==
[2021-01-02] MEDS ORDERED: METFORMIN HCL500 M3 PO (17:55)
[2021-01-02] MEDS ORDERED: ATOR40TA PO (17:55)
[2021-01-02] MEDS ORDERED: INSULANPEN SC (17:56)
[2021-01-02] MEDS ORDERED: HUMALOG KW100 UNIT/1 SC (17:57)
== END 2021-01-02 14:46 | disposition home or self-care (01) ==
LOC: ATC 04:09
DX: L03.116 Cellulitis of left lower limb (principal); E11.621 Type 2 diabetes mellitus with foot ulcer; L97.528 Non-pressure chronic ulcer of other part of left foot with other specified severity; E11.42 Type 2 diabetes mellitus with diabetic polyneuropathy; Z79.4 Long term (current) use of insulin; Z89.432 Acquired absence of left foot
CPT/HCPCS: 96365; J0696

== ENCOUNTER 2021-01-02 05:01 | Day surgery (SDC) | payer MEDICARE ==
[2021-01-02] MEDS ORDERED: ATOR40TA PO (17:55)
[2021-01-02] MEDS ORDERED: METFORMIN HCL500 M3 PO (17:55)
[2021-01-02] MEDS ORDERED: INSULANPEN SC (17:56)
[2021-01-02] MEDS ORDERED: HUMALOG KW100 UNIT/1 SC (17:57)
== END 2021-01-02 23:00 | disposition home or self-care (01) ==
LOC: WOUND 05:01
DX: E11.621 Type 2 diabetes mellitus with foot ulcer (principal); L97.528 Non-pressure chronic ulcer of other part of left foot with other specified severity; L03.116 Cellulitis of left lower limb; E11.42 Type 2 diabetes mellitus with diabetic polyneuropathy; Z79.4 Long term (current) use of insulin; Z89.432 Acquired absence of left foot
CPT/HCPCS: G0463

== ENCOUNTER 2021-01-02 16:19 | Inpatient (IN) | payer MEDICARE ==
[~2021-01-02] VITALS: Ht 177.8 cm; Wt 78.3 kg
[2021-01-02 17:35] LABS: BASOPHILS ABSOLUTE AUTO 0.06 K/mm3 (0.00-0.23); BASOPHILS PERCENT AUTO 0 % (0-2); EOSINOPHILS ABSOLUTE AUTO 0.15 K/mm3 (0.00-0.68); EOSINOPHILS PERCENT AUTO 1 % (0-6); Hematocrit 34.3 % (33.0-51.0); Hemoglobin 11.1 g/dL (11.5-16.0); IMMATURE GRAN ABSOLUTE AUTO 0.24 K/mm3 (0.00-0.10); IMMATURE GRAN PERCENT AUTO 1 % (0-1); LYMPHOCYTES ABSOLUTE AUTO 1.83 K/mm3 (0.84-5.20); LYMPHOCYTES PERCENT AUTO 9 % (21-46); MONOCYTES PERCENT AUTO 7 % (4-13); Mean Corpuscular HGB 29.1 pg (26.0-34.0); Mean Corpuscular HGB Conc 32.4 g/dL (31.5-36.5); Mean Corpuscular Volume 90 fL (80-100); Mean Platelet Volume 10.2 fL (9.1-12.4); NEUTROPHILS ABSOLUTE AUTO 17.08 K/mm3 (1.96-9.15); NEUTROPHILS PERCENT AUTO 82 % (41-73); Platelet Count 745 K/mm3 (150-400); RDW Standard Deviation 45.7 fL (35.1-46.3); Red Blood Cell Count 3.82 M/mm3 (3.80-5.20); White Blood Cell Count 20.86 K/mm3 (4.00-11.30)
[2021-01-02] MEDS ORDERED: METFORMIN HCL500 M3 PO (17:55)
[2021-01-02] MEDS ORDERED: ATOR40TA PO (17:55)
[2021-01-02] MEDS ORDERED: INSULANPEN SC (17:56)
[2021-01-02] MEDS ORDERED: HUMALOG KW100 UNIT/1 SC (17:57)
[2021-01-02 18:36] LABS: International Normalized Ratio 1.19; Prothrombin Time Results 12.4 Sec (9.7-11.5)
[2021-01-02 18:52] LABS: Alanine Aminotransfer (ALT/SGP 81 U/L (12-78); Albumin, Blood 1.6 g/dL (3.4-5.0); Albumin/Globulin Ratio 0.3 (0.8-1.8); Alk Phos 224 U/L (50-136); Anion Gap 4 mmol/L (6-16); Aspartate Aminotrans (AST/SGOT 64 U/L (12-37); Bilirubin, Total 0.2 mg/dL (0.1-1.0); Blood Urea Nitrogen 15 mg/dL (8-24); Bun/Creatinine Ratio 17.6 (12.0-20.0); CO2, Blood 32 mmol/L (21-32); Calcium, Blood 8.6 mg/dL (8.5-10.1); Chloride, Blood 101 mmol/L (98-108); Creatinine, Blood 0.85 mg/dL (0.40-1.00); Globulin, Blood 4.6 g/dL (2.2-4.0); Glomerular Filtration Rate >60 (60-); Glucose, Blood 149 mg/dL (70-99); Potassium, Blood 3.9 mmol/L (3.5-5.5); Sodium, Blood 137 mmol/L (136-145); Total Protein, Blood 6.2 g/dL (6.4-8.2)
[2021-01-03 04:29] LABS: Influenza A, PCR NEGATIVE (NEGATIVE); Influenza B, PCR NEGATIVE (NEGATIVE); Resp Syncytial Virus, PCR NEGATIVE (NEGATIVE); SARS-Cov-2 (COVID-19) PCR, MMC NEGATIVE (NEGATIVE)
[2021-01-03 04:59] LABS: BASOPHILS ABSOLUTE AUTO 0.05 K/mm3 (0.00-0.23); BASOPHILS PERCENT AUTO 0 % (0-2); EOSINOPHILS ABSOLUTE AUTO 0.32 K/mm3 (0.00-0.68); EOSINOPHILS PERCENT AUTO 2 % (0-6); Hemoglobin 9.5 g/dL (11.5-16.0); IMMATURE GRAN ABSOLUTE AUTO 0.16 K/mm3 (0.00-0.10); IMMATURE GRAN PERCENT AUTO 1 % (0-1); LYMPHOCYTES ABSOLUTE AUTO 1.75 K/mm3 (0.84-5.20); LYMPHOCYTES PERCENT AUTO 9 % (21-46); MONOCYTES ABSOLUTE AUTO 1.65 K/mm3 (0.16-1.47); MONOCYTES PERCENT AUTO 9 % (4-13); Mean Corpuscular HGB 28.4 pg (26.0-34.0); Mean Corpuscular HGB Conc 31.7 g/dL (31.5-36.5); Mean Corpuscular Volume 90 fL (80-100); Mean Platelet Volume 9.5 fL (9.1-12.4); NEUTROPHILS ABSOLUTE AUTO 15.03 K/mm3 (1.96-9.15); NEUTROPHILS PERCENT AUTO 79 % (41-73); Platelet Count 555 K/mm3 (150-400); RDW Coefficient Variation 13.8 % (11.7-14.2); RDW Standard Deviation 45.6 fL (35.1-46.3); Red Blood Cell Count 3.34 M/mm3 (3.80-5.20); White Blood Cell Count 18.96 K/mm3 (4.00-11.30)
[2021-01-03 05:35] LABS: Alanine Aminotransfer (ALT/SGP 70 U/L (12-78); Albumin, Blood 1.5 g/dL (3.4-5.0); Albumin/Globulin Ratio 0.4 (0.8-1.8); Alk Phos 193 U/L (50-136); Anion Gap 8 mmol/L (6-16); Aspartate Aminotrans (AST/SGOT 47 U/L (12-37); Bilirubin, Total 0.2 mg/dL (0.1-1.0); Blood Urea Nitrogen 15 mg/dL (8-24); Bun/Creatinine Ratio 21.4 (12.0-20.0); CO2, Blood 27 mmol/L (21-32); Calcium, Blood 7.9 mg/dL (8.5-10.1); Chloride, Blood 101 mmol/L (98-108); Globulin, Blood 4.2 g/dL (2.2-4.0); Glomerular Filtration Rate >60 (60-); Glucose, Blood 276 mg/dL (70-99); Potassium, Blood 3.5 mmol/L (3.5-5.5); Sodium, Blood 136 mmol/L (136-145); Total Protein, Blood 5.7 g/dL (6.4-8.2)
--- NOTE | 2021-01-03 05:55 | NUR ---
PT ARRIVED FROM ED AT 2245. AOX4. ADMITTED FOR L FOOT INFECTION WITH TUNNELING. PT REPORTS PAIN, ESPECIALLY WITH MOVEMENT. REPORTS CHRONIC N/T, HX DIABETIC NEUROPATHY. PEDAL PULSE IS STRONG. PT HAS SOME FEVER. VSS. TELE IN PLACED WITH SINUS WITH PVC AND BBB AT 70'S. PAIN MANAGED WITH OXY, FENTANYL, CBG UPON ARRIVAL WAS 210. SEMGLEE INSULIN ADMINSTERED. IV ON R AC. FLUIDS INFUSING AND ABX. CALL LIGHT WITHIN REACH.
--- NOTE | 2021-01-03 06:00 | NUR ---
SHIFT SUMMARY NO ACUTE CHANGES OVERNIGHT. VSS. MILD FEVER. L FOOT INFECTION STILL IN PAIN ESPECIALLY WITH MOVEMENT. PAIN 10/. PAIN MANAGED WITH OXY AND FENTANYL. PT HAD 1 SMALL LIQ BM LAST NIGHT. USED URINAL. SHE IS A TRANSGENDER. AOX3. COVID SWAB TEST NEGATIVE. FLUIDS STILL INFUSING, ABX ADMINISTERED. CBG REMAINS ON 200'S THIS MORNING. USE CALL LIGHT APPROPRIATELY. CALL LIGHT WITHIN REACH. WILL PROVIDE REPORT TO ONCOMING NURSE.
--- NOTE | 2021-01-03 10:12 | NUR ---
PATIENT ALERT AND ORIENTED X4. FLAT AFFECT AND DROWSY THIS AM. ABLE TO MOVE ALL EXTREMITIES IN BED. PERRLA. BILATERAL BENEFITS ASSISTANT STRENGTH. NON WEIGHT BEARING ON LEFT FOOT. HISTORY OF TRANSMETATARSAL AMPUTATION. WOUND TO LEFT FOOT THAT IS INFECTED. RESSING CHANGED THIS AM. PLAN FOR SURGERY TODAY. ON ROOM AIR SATING MID 90'S. LUNGS SOUNDING CLEAR AND DIM IN BASES. TELE SHOWING SINUS WITH BBB AND HR 70'S. DENIES CHEST PAIN/PRESSURE. MIDLINE CHEST SCAR, HX OF CABG. NO SIGNS OF EDEMA. STRONG RADIAL PULSES, FAINT PEDAL PULSES. USING BEDSIDE COMMODE WITH 2 PERSON ASSIST. NORMAL SALINE INFUSING AT 150 ML/HR. ANTIBIOTICS INFUSED. NPO FOR SURGERY. SLEEPING AT THIS TIME. MEDICATED X1 THIS AM FOR PAIN. CALL LIGHT IN REACH. WILL CONTINUE TO MONITOR.
--- NOTE | 2021-01-03 12:59 | NUR ---
PATIENT TAKEN TO SURGERY AT 1240 VIA BED.
--- NOTE | 2021-01-03 13:13 | NUR ---
ASSUMED CARE OF PATIENT NO CHANGES
--- NOTE | 2021-01-03 14:17 | NUR ---
01/03/21 1417 Javier Killian SCHEDULED ZOSYN 1245, RUNNING UPON ENTRY TO ROOM.
[2021-01-04 04:41] LABS: BASOPHILS ABSOLUTE AUTO 0.04 K/mm3 (0.00-0.23); BASOPHILS PERCENT AUTO 0 % (0-2); EOSINOPHILS ABSOLUTE AUTO 0.38 K/mm3 (0.00-0.68); EOSINOPHILS PERCENT AUTO 2 % (0-6); Hematocrit 30.2 % (33.0-51.0); Hemoglobin 9.6 g/dL (11.5-16.0); IMMATURE GRAN ABSOLUTE AUTO 0.09 K/mm3 (0.00-0.10); IMMATURE GRAN PERCENT AUTO 1 % (0-1); LYMPHOCYTES ABSOLUTE AUTO 1.63 K/mm3 (0.84-5.20); LYMPHOCYTES PERCENT AUTO 10 % (21-46); MONOCYTES PERCENT AUTO 8 % (4-13); Mean Corpuscular HGB 28.9 pg (26.0-34.0); Mean Corpuscular HGB Conc 31.8 g/dL (31.5-36.5); Mean Corpuscular Volume 91 fL (80-100); Mean Platelet Volume 9.5 fL (9.1-12.4); NEUTROPHILS ABSOLUTE AUTO 13.49 K/mm3 (1.96-9.15); NEUTROPHILS PERCENT AUTO 80 % (41-73); Platelet Count 577 K/mm3 (150-400); RDW Coefficient Variation 14.3 % (11.7-14.2); RDW Standard Deviation 47.8 fL (35.1-46.3); Red Blood Cell Count 3.32 M/mm3 (3.80-5.20); White Blood Cell Count 16.93 K/mm3 (4.00-11.30)
[2021-01-04 04:57] LABS: Vancomycin, Trough 11.7 ug/mL (5.0-10.0)
[2021-01-04 05:56] LABS: Anion Gap 8 mmol/L (6-16); Blood Urea Nitrogen 15 mg/dL (8-24); CO2, Blood 26 mmol/L (21-32); Calcium, Blood 7.6 mg/dL (8.5-10.1); Chloride, Blood 102 mmol/L (98-108); Creatinine, Blood 0.83 mg/dL (0.40-1.00); Glomerular Filtration Rate >60 (60-); Glucose, Blood 207 mg/dL (70-99); Potassium, Blood 3.5 mmol/L (3.5-5.5); Sodium, Blood 136 mmol/L (136-145)
--- NOTE | 2021-01-04 07:11 | NUR ---
PT IS A/OX3. ABLE TO MAKE NEEDS KNOWN. NO EVENTS OVR NIGHT. TOLERATING ADA DIET WELL. DENIED ANY N/V. CBS. OXYGEN AT 1L PER NC. THIS RN GAVE PT I/S W/INSTRUCTION HOW TO USE. LT BKA STUMP W/SOCK, CDI. USES URINAL. LAST BM 01/03/21. PAIN MANAGED W/PRN MEDS PER EMAR.
--- NOTE | 2021-01-04 16:39 | NUR ---
SHIFT SUMMARY: POD 1 LEFT FOOT BKA PATIENT IS ALERT AND ORIENTED X4. VS ARE WNL AND IS ON RA. PAIN IS MANAGED WITH 2 PO OXY. HER LEFT FOOT HAS A STUMP SOCK ON IT THAT IS C/D/I. SHE HAS WORKED WITH PT/OT THOUGH IS A TWO PERSON MAX ASSIST UP. SHE IS TOLERATING PO INTAKE AND IS VOIDING. PATIENT WAS ALSO ABLE TO SIT IN A CHAIR TODAY WITH PT FOR A COUPLE OF HOURS. SHE TOLERATED IT VERY WELL. ENCOURAGING INSPIRAMETOR USE. FAMILY IS AT BEDSIDE. CALLS APPROPRIATELY. CALL LIGHT WITHIN REACH. THE PLAN IS TO CONTINUE PT/OT AND PAIN MANAGEMENT.
[2021-01-05 04:26] LABS: BASOPHILS ABSOLUTE AUTO 0.06 K/mm3 (0.00-0.23); BASOPHILS PERCENT AUTO 0 % (0-2); EOSINOPHILS ABSOLUTE AUTO 0.29 K/mm3 (0.00-0.68); EOSINOPHILS PERCENT AUTO 2 % (0-6); Hematocrit 30.1 % (33.0-51.0); Hemoglobin 9.5 g/dL (11.5-16.0); IMMATURE GRAN ABSOLUTE AUTO 0.16 K/mm3 (0.00-0.10); IMMATURE GRAN PERCENT AUTO 1 % (0-1); LYMPHOCYTES ABSOLUTE AUTO 1.72 K/mm3 (0.84-5.20); LYMPHOCYTES PERCENT AUTO 9 % (21-46); MONOCYTES ABSOLUTE AUTO 1.59 K/mm3 (0.16-1.47); MONOCYTES PERCENT AUTO 9 % (4-13); Mean Corpuscular HGB Conc 31.6 g/dL (31.5-36.5); Mean Corpuscular Volume 92 fL (80-100); Mean Platelet Volume 9.4 fL (9.1-12.4); NEUTROPHILS ABSOLUTE AUTO 14.52 K/mm3 (1.96-9.15); NEUTROPHILS PERCENT AUTO 79 % (41-73); Platelet Count 580 K/mm3 (150-400); RDW Coefficient Variation 13.9 % (11.7-14.2); RDW Standard Deviation 47.3 fL (35.1-46.3); Red Blood Cell Count 3.28 M/mm3 (3.80-5.20); White Blood Cell Count 18.34 K/mm3 (4.00-11.30)
--- NOTE | 2021-01-05 05:05 | NUR ---
SHIFT SUMMARY POD2 L BKA, A/O X4 c FLAT AFFECT,MTF TRANSGENDER c MALE REPRODUCTIVE ORGANS, ABLE TO USE URINAL, PAIN MANAGED PER EMAR, TOLERATING PO. NO ACUTE EVENTS THIS SHIFT. CALL LIGHT IN REACH, WILL CTM AND REPORT TO DAY RN.
[2021-01-05 06:23] LABS: Anion Gap 9 mmol/L (6-16); Blood Urea Nitrogen 10 mg/dL (8-24); Bun/Creatinine Ratio 13.1 (12.0-20.0); CO2, Blood 26 mmol/L (21-32); Calcium, Blood 6.9 mg/dL (8.5-10.1); Chloride, Blood 100 mmol/L (98-108); Creatinine, Blood 0.76 mg/dL (0.40-1.00); Glomerular Filtration Rate >60 (60-); Glucose, Blood 300 mg/dL (70-99); Potassium, Blood 4.1 mmol/L (3.5-5.5); Sodium, Blood 135 mmol/L (136-145); Vancomycin, Trough 11.6 ug/mL (5.0-10.0)
--- NOTE | 2021-01-05 19:03 | NUR ---
SUMMARY NO ACUTE CHANGES T/O SHIFT. PT UNABLE TO STAND WITH THERAPY TODAY. MEDICATED PER ORDERS FOR PAIN T/O SHIFT. DR REED IN THIS AFTERNOON AND CHANGED DRESSING TO L BKA. COVERED CBGS PER ORDERS. VOIDING W/O DIFFICULTY. CALL LIGHT IN REACH.
[2021-01-05 21:57] LABS: Vancomycin, Peak 10.5 ug/mL (20.0-40.0)
--- NOTE | 2021-01-06 03:50 | NUR ---
SHIFT SUMMARY A/OX4. POD3 LBKA, WRAPPED AND HAS STUMP SOCK, C/D/I. VITALS STABLE. PT VOIDING WELL. TOLERATING PO INTAKE. MANAGING PAIN WITH PO PAIN MEDICATIONS PER EMAR. PT UNABLE TO AMBULATE OR TRANSFER YESTERADAY PER PHYSICAL THERAPY, WILL TRY AGAIN TODAY. WILL REPORT TO ONCOMING RN. CALL LIGHT IN REACH
[2021-01-06 04:28] LABS: BASOPHILS ABSOLUTE AUTO 0.07 K/mm3 (0.00-0.23); BASOPHILS PERCENT AUTO 0 % (0-2); EOSINOPHILS ABSOLUTE AUTO 0.46 K/mm3 (0.00-0.68); EOSINOPHILS PERCENT AUTO 3 % (0-6); Hematocrit 32.1 % (33.0-51.0); Hemoglobin 10.1 g/dL (11.5-16.0); IMMATURE GRAN ABSOLUTE AUTO 0.13 K/mm3 (0.00-0.10); IMMATURE GRAN PERCENT AUTO 1 % (0-1); LYMPHOCYTES ABSOLUTE AUTO 1.83 K/mm3 (0.84-5.20); LYMPHOCYTES PERCENT AUTO 11 % (21-46); MONOCYTES PERCENT AUTO 8 % (4-13); Mean Corpuscular HGB 28.5 pg (26.0-34.0); Mean Corpuscular HGB Conc 31.5 g/dL (31.5-36.5); Mean Corpuscular Volume 91 fL (80-100); Mean Platelet Volume 9.3 fL (9.1-12.4); NEUTROPHILS ABSOLUTE AUTO 12.65 K/mm3 (1.96-9.15); NEUTROPHILS PERCENT AUTO 77 % (41-73); Platelet Count 624 K/mm3 (150-400); RDW Coefficient Variation 13.9 % (11.7-14.2); Red Blood Cell Count 3.54 M/mm3 (3.80-5.20); White Blood Cell Count 16.44 K/mm3 (4.00-11.30)
[2021-01-06 04:47] LABS: Anion Gap 3 mmol/L (6-16); Blood Urea Nitrogen 13 mg/dL (8-24); Bun/Creatinine Ratio 17.8 (12.0-20.0); CO2, Blood 30 mmol/L (21-32); Calcium, Blood 7.2 mg/dL (8.5-10.1); Chloride, Blood 104 mmol/L (98-108); Creatinine, Blood 0.73 mg/dL (0.40-1.00); Glomerular Filtration Rate >60 (60-); Glucose, Blood 308 mg/dL (70-99); Potassium, Blood 3.6 mmol/L (3.5-5.5); Sodium, Blood 137 mmol/L (136-145)
--- NOTE | 2021-01-06 10:29 | NUR ---
BP PT'S BP ELEVATED THIS AM. RETOOK AND HAD IMPROVED. NOTIFIED DR ALEXANDRA. NO NEW ORDERS AT THIS TIME.
--- NOTE | 2021-01-06 17:51 | NUR ---
SUMMARY PT'S BP ELEVATED THIS AM. DISCUSSED W/DR GOODSON AND ORDERS OBTAINED. MEDICATED PER ORDERS T/O SHIFT FOR PAIN. PT REC'D BED BATH BY ELEMENTARY SCHOOL LIBRARIAN TODAY. PLACED MEPILEX DRESSING TO COCCYX DUE TO SLIGHT REDNESS. CALL LIGHT IN REACH.
[2021-01-07 04:09] LABS: BASOPHILS ABSOLUTE AUTO 0.04 K/mm3 (0.00-0.23); BASOPHILS PERCENT AUTO 0 % (0-2); EOSINOPHILS ABSOLUTE AUTO 0.49 K/mm3 (0.00-0.68); EOSINOPHILS PERCENT AUTO 4 % (0-6); Hematocrit 32.6 % (33.0-51.0); Hemoglobin 10.2 g/dL (11.5-16.0); IMMATURE GRAN ABSOLUTE AUTO 0.15 K/mm3 (0.00-0.10); IMMATURE GRAN PERCENT AUTO 1 % (0-1); LYMPHOCYTES ABSOLUTE AUTO 2.19 K/mm3 (0.84-5.20); LYMPHOCYTES PERCENT AUTO 16 % (21-46); MONOCYTES ABSOLUTE AUTO 1.05 K/mm3 (0.16-1.47); MONOCYTES PERCENT AUTO 8 % (4-13); Mean Corpuscular HGB 28.5 pg (26.0-34.0); Mean Corpuscular HGB Conc 31.3 g/dL (31.5-36.5); Mean Corpuscular Volume 91 fL (80-100); Mean Platelet Volume 9.2 fL (9.1-12.4); NEUTROPHILS ABSOLUTE AUTO 9.68 K/mm3 (1.96-9.15); NEUTROPHILS PERCENT AUTO 71 % (41-73); Platelet Count 689 K/mm3 (150-400); RDW Coefficient Variation 13.8 % (11.7-14.2); RDW Standard Deviation 46.6 fL (35.1-46.3); Red Blood Cell Count 3.58 M/mm3 (3.80-5.20)
[2021-01-07 04:46] LABS: Anion Gap 5 mmol/L (6-16); Blood Urea Nitrogen 11 mg/dL (8-24); Bun/Creatinine Ratio 16.4 (12.0-20.0); CO2, Blood 30 mmol/L (21-32); Calcium, Blood 7.8 mg/dL (8.5-10.1); Chloride, Blood 102 mmol/L (98-108); Creatinine, Blood 0.67 mg/dL (0.40-1.00); Glomerular Filtration Rate >60 (60-); Glucose, Blood 326 mg/dL (70-99); Potassium, Blood 3.7 mmol/L (3.5-5.5); Sodium, Blood 137 mmol/L (136-145)
--- NOTE | 2021-01-07 07:40 | NUR ---
POD S/P L BKA. PT VSS T/O NIGHT, HR SINUS PER TELE MONITOR. DRESSING CDI, STUMP SOCK IN PLACE. PT CONT TO C/O PHANTOM PAIN, PAIN MGD PER EMAR. PT WEAK AND UNSTEADY WHEN UP. PLAN TO MOBILIZE W/PT AND AWAIT SNF PLANNING
--- NOTE | 2021-01-07 16:50 | NUR ---
SHIFT SUMMARY PT A&OX4, VSS/RA. POD4 L BKA, BANDAGE/ZACH/STUMP SOCK CDI. PAIN MANAGED WITH 5 MG OXY/TYLENOL. MIRA PO. VOIDING WELL; SOFT BMS++. AMBULATING TO BRP, UP TO CHAIR/BED. WILL REPORT TO ONCOMING NOC RN.
--- NOTE | 2021-01-07 16:54 | NUR ---
DURING PSYCH ASSESSMENT PT REPORTED HAVING A HX OF SUICIDAL IDEATIONS. PT HAS A HX OF ATTEMPTED SUICIDE IN 2014 BUT AN AMBULANCE WAS CALLED. PT REPORTED HE WAS UPSET WITH BEING SAVED. PT REPORTED, "I HAVE A PLAN TO MAKE IT LOOK LIKE NATURAL CAUSES." PT STATED "I DO NOT HAVE CURRENT THOUGHTS OF HURTING MYSELF." PT BROTHER OF OVERDOSE ONE YEAR AGO, AND SHE HAS NO FAMILY SUPPORT. DISCUSSED SUICIDE RISK WITH RN. RN DISCUSSED WITH DC MOLD REPAIRER THE NEED TO GET WOODS SUPERINTENDENT INVOLVED FOR PT MENTAL HEALTH.
--- NOTE | 2021-01-08 06:23 | NUR ---
PT IS A/OX3. ABLE TO MAKE NEEDS KNOWN. NO EVENTS OVER NIGHT. TELE WAS D/C'D YESTERDAY. DENIED ANY CHEST PAIN/PRESSURE/PALPITATIONS. ROOM AIR. I/S AT BEDSIDE BUT WOULD NOT USE DURNING NOC. POD 5 FOR LT BKA. LT STUMP SOCK/DRSG IS CDI. USED URINAL DURING NIGHT, CLEAR/LIGHT YELLOW URINE. LAST BM 01/07. DENIED ANY N/V. BT'S POS X4. TOLERATING ADA DIET WELL. CHAD CASTRO, PATENT & SITE IS CDI.
--- NOTE | 2021-01-08 18:48 | NUR ---
SHIFT SUMMARY PT A&OX4, VSS/RA/CBGS COVERAGE PER MAR, POD5 L BKA, DRESSING/SOCK DRY/INTACT. PAIN MANAGED WITH OXY/TYLENOL/GABAPENTIN/CYMBALTA. MIRA PO. AMB W/FWW/SBA, TO BRP, UP TO CHAIR T/O SHIFT. VOIDING WELL; MULT BMS. POWERGLIDE RFA; ABX INFUSING PER EMAR. WILL REPORT TO ROMAN PERKINS.
--- NOTE | 2021-01-09 06:39 | NUR ---
PT IS A/OX3. ABLE TO MAKE HER NEEDS KNOWN. NO EVENTS OVER NIGHT. SHE IS POD #6 FOR LT BKA. LT STUMP DRSG/SOCK CDI. REMAINED IN BED DURING NOC. I/S AT BEDSIDE, ABLE TO RETURN DEMO.
--- NOTE | 2021-01-09 17:24 | NUR ---
SUMMARY\ NO ACUTE CHANGES T/O SHIFT. PT SAT UP IN RECLINER MOST OF SHIFT. MEDICATED PER ORDERS FOR PAIN TO LLE. CALL LIGHT IN REACH.
--- NOTE | 2021-01-10 05:39 | NUR ---
PT IS A/OX3. ABLE TO MAKE HER NEEDS KNOWN. NO EVENTS OVER NIGHT. POD #7 FOR LT BKA. ZACH WRAP/SOCK TO LT STUMP CDI. PAIN MANAGED W/PRN MEDS PER EMAR. TOLERATING ADA DIET WELL. NO N/V. VOIDING WELL, USES URINAL.
[2021-01-10 12:01] LABS: Influenza A, PCR NEGATIVE (NEGATIVE); Influenza B, PCR NEGATIVE (NEGATIVE); Resp Syncytial Virus, PCR NEGATIVE (NEGATIVE); SARS-Cov-2 (COVID-19) PCR, MMC NEGATIVE (NEGATIVE)
--- NOTE | 2021-01-10 16:22 | NUR ---
DISCHARGE REPORT CALLED TO JOAQUIN AT [facility]. PT AWARE OF DISCHARGE PLAN. PT'S BELONGINGS PACKED UP AND RETURNED. PT'S SCOOTER WAS SENT WITH PT'S FRIEND PER PT REQUEST. PT DISCHARGE WITH [facility] AT APPROXIMATELY 1505.
== END 2021-01-10 15:06 | DRG 239 ==
LOC: ER 16:19 → SURS 22:27
PROVIDERS: Family Medicine; Orthopaedic Surgery; Physician Assistant; Student in an Organized Health Care Education/Training Program; ADMIT Internal Medicine
PROC: 0Y6J0Z3 Detachment at Left Lower Leg, Low, Open Approach (ICD-10-PCS; principal; 2021-01-03 13:45)
DX: E11.52 Type 2 diabetes mellitus with diabetic peripheral angiopathy with gangrene (principal); A48.0 Gas gangrene; L03.116 Cellulitis of left lower limb; M86.172 Other acute osteomyelitis, left ankle and foot; E11.69 Type 2 diabetes mellitus with other specified complication; I10 Essential (primary) hypertension; E11.42 Type 2 diabetes mellitus with diabetic polyneuropathy; Z20.822 Contact with and (suspected) exposure to COVID-19; I25.10 Atherosclerotic heart disease of native coronary artery without angina pectoris; Z95.1 Presence of aortocoronary bypass graft; Z98.890 Other specified postprocedural states; Z79.4 Long term (current) use of insulin; Z79.899 Other long term (current) drug therapy; Z88.8 Allergy status to other drugs, medicaments and biological substances; Z66 Do not resuscitate
CPT/HCPCS: 0241U; 36415; 73620; 73701; 80048; 80053; 80202; 82947; 83605; 85025; 85610; 85651; 85730; 86140; 87040; 88307; 88311; 94760; 96365; 96366; 96367; 96375; 97110; 97110-CQ; 97116; 97162; 97166; 97530; 97535; 99285-25; A9270; C1751; J0295; J1650; J1815; J2270; J2370; J2405; J2543; J2704; J2765; J3010; J3370; J7030; J7040; J7050; J7120; Q9967

== ENCOUNTER 2021-02-06 03:10 | Day surgery (SDC) | payer MEDICARE ==
[~2021-02-06 03:10] MED LIST changes: +ATOR40TA PO; +INSULANPEN SC; +METFORMIN HCL500 M3 PO
== END 2021-02-06 23:06 | disposition home or self-care (01) ==
LOC: WOUND 03:10
DX: T87.89 Other complications of amputation stump (principal); L97.525 Non-pressure chronic ulcer of other part of left foot with muscle involvement without evidence of necrosis; E11.621 Type 2 diabetes mellitus with foot ulcer; L97.529 Non-pressure chronic ulcer of other part of left foot with unspecified severity; L03.116 Cellulitis of left lower limb; E11.42 Type 2 diabetes mellitus with diabetic polyneuropathy; Z89.432 Acquired absence of left foot; Z79.4 Long term (current) use of insulin; Z89.512 Acquired absence of left leg below knee; Y83.5 Amputation of limb(s) as the cause of abnormal reaction of the patient, or of later complication, without mention of misadventure at the time of the procedure

== ENCOUNTER 2021-02-08 05:33 | Day surgery (SDC) | payer MEDICARE | END 2021-02-08 23:15 | disposition home or self-care (01) | LOC: WOUND 05:33 | DX: E11.621 Type 2 diabetes mellitus with foot ulcer (principal); L97.528 Non-pressure chronic ulcer of other part of left foot with other specified severity; L03.116 Cellulitis of left lower limb; M79.672 Pain in left foot; E11.42 Type 2 diabetes mellitus with diabetic polyneuropathy; Z79.4 Long term (current) use of insulin; Z89.432 Acquired absence of left foot ==

== ENCOUNTER 2021-02-12 05:22 | Day surgery (SDC) | payer MEDICARE | END 2021-02-12 12:00 | disposition home or self-care (01) | LOC: WOUND 05:22 | DX: E11.621 Type 2 diabetes mellitus with foot ulcer (principal); L97.528 Non-pressure chronic ulcer of other part of left foot with other specified severity; E11.42 Type 2 diabetes mellitus with diabetic polyneuropathy; L03.116 Cellulitis of left lower limb; M79.672 Pain in left foot; Z79.4 Long term (current) use of insulin; Z89.432 Acquired absence of left foot ==

== ENCOUNTER 2021-02-13 05:53 | Day surgery (SDC) | payer MEDICARE | END 2021-02-13 23:11 | disposition home or self-care (01) | LOC: WOUND 05:53 | DX: T87.89 Other complications of amputation stump (principal); L97.828 Non-pressure chronic ulcer of other part of left lower leg with other specified severity; L03.116 Cellulitis of left lower limb; E11.42 Type 2 diabetes mellitus with diabetic polyneuropathy; Z79.4 Long term (current) use of insulin; Z89.432 Acquired absence of left foot; Z89.512 Acquired absence of left leg below knee; Y83.5 Amputation of limb(s) as the cause of abnormal reaction of the patient, or of later complication, without mention of misadventure at the time of the procedure | CPT/HCPCS: A9270 ==

== ENCOUNTER 2021-02-20 03:32 | Day surgery (SDC) | payer MEDICARE ==
[~2021-02-20 03:32] MED LIST changes: +ACET325 PO; +AMLO5 PO; +AMOCLA500 PO; +ATOR10 PO; +CEPH500 PO; +DOCU100 PO; +FAMO20 PO; +GABA400 PO; +LISI20 PO; +OXYC5 PO; +SENNA LAXATIVE8.6 MG PO
== END 2021-02-21 12:00 | disposition home or self-care (01) ==
LOC: WOUND 03:32
DX: E11.621 Type 2 diabetes mellitus with foot ulcer (principal); L97.528 Non-pressure chronic ulcer of other part of left foot with other specified severity; L03.116 Cellulitis of left lower limb; M79.672 Pain in left foot; E11.42 Type 2 diabetes mellitus with diabetic polyneuropathy; Z79.4 Long term (current) use of insulin; Z89.432 Acquired absence of left foot; Z89.512 Acquired absence of left leg below knee

== ENCOUNTER 2021-02-27 05:19 | Day surgery (SDC) | payer MEDICARE | END 2021-02-27 23:42 | disposition home or self-care (01) | LOC: WOUND | DX: L03.116 Cellulitis of left lower limb (principal); M79.672 Pain in left foot; E11.42 Type 2 diabetes mellitus with diabetic polyneuropathy; T87.44 Infection of amputation stump, left lower extremity; T87.89 Other complications of amputation stump; Z79.4 Long term (current) use of insulin; Z89.432 Acquired absence of left foot; Z89.512 Acquired absence of left leg below knee | CPT/HCPCS: A9270 ==

== ENCOUNTER 2021-03-01 07:44 | Day surgery (SDC) | payer MEDICARE | END 2021-03-01 23:53 | disposition home or self-care (01) | LOC: WOUND 07:44 | DX: T87.44 Infection of amputation stump, left lower extremity (principal); T87.89 Other complications of amputation stump; Z89.432 Acquired absence of left foot ==

== ENCOUNTER 2021-03-06 01:51 | Day surgery (SDC) | payer MEDICARE | END 2021-03-06 22:38 | disposition home or self-care (01) | LOC: WOUND 01:51 | DX: S81.802A Unspecified open wound, left lower leg, initial encounter (principal); L03.116 Cellulitis of left lower limb; E11.42 Type 2 diabetes mellitus with diabetic polyneuropathy; T87.44 Infection of amputation stump, left lower extremity; T87.89 Other complications of amputation stump; Z79.4 Long term (current) use of insulin; Z89.432 Acquired absence of left foot; Z89.512 Acquired absence of left leg below knee; X58.XXXA Exposure to other specified factors, initial encounter | CPT/HCPCS: A9270 ==

== ENCOUNTER 2021-03-11 03:06 | Day surgery (SDC) | payer MEDICARE | END 2021-03-11 22:42 | disposition home or self-care (01) | LOC: WOUND 03:06 | DX: L03.116 Cellulitis of left lower limb (principal); E11.42 Type 2 diabetes mellitus with diabetic polyneuropathy; Z89.512 Acquired absence of left leg below knee; Z79.4 Long term (current) use of insulin; Z89.432 Acquired absence of left foot ==

== ENCOUNTER 2021-03-13 00:48 | Day surgery (SDC) | payer MEDICARE | END 2021-03-13 22:50 | disposition home or self-care (01) | LOC: WOUND 00:48 | DX: T87.44 Infection of amputation stump, left lower extremity (principal); L03.116 Cellulitis of left lower limb; E11.42 Type 2 diabetes mellitus with diabetic polyneuropathy; Z79.4 Long term (current) use of insulin; Z89.512 Acquired absence of left leg below knee ==

== ENCOUNTER 2021-03-15 03:47 | Day surgery (SDC) | payer MEDICARE | END 2021-03-15 12:00 | disposition home or self-care (01) | LOC: WOUND 03:47 | DX: L03.116 Cellulitis of left lower limb (principal); M79.672 Pain in left foot; E11.42 Type 2 diabetes mellitus with diabetic polyneuropathy; T87.44 Infection of amputation stump, left lower extremity; T87.89 Other complications of amputation stump; Z79.4 Long term (current) use of insulin; Z89.432 Acquired absence of left foot; Z89.512 Acquired absence of left leg below knee ==

== ENCOUNTER 2021-03-25 02:43 | Day surgery (SDC) | payer MEDICARE | END 2021-03-25 23:33 | disposition home or self-care (01) | LOC: WOUND 02:43 | DX: T87.44 Infection of amputation stump, left lower extremity (principal); L03.116 Cellulitis of left lower limb; E11.42 Type 2 diabetes mellitus with diabetic polyneuropathy; G89.29 Other chronic pain; M79.672 Pain in left foot; Z79.899 Other long term (current) drug therapy ==

== ENCOUNTER 2021-03-27 02:42 | Day surgery (SDC) | payer MEDICARE | END 2021-03-27 02:43 | disposition home or self-care (01) | LOC: WOUND 02:42 | DX: T87.89 Other complications of amputation stump (principal); E11.9 Type 2 diabetes mellitus without complications; I10 Essential (primary) hypertension; I25.2 Old myocardial infarction; Z89.512 Acquired absence of left leg below knee ==

== ENCOUNTER 2021-03-29 00:44 | Day surgery (SDC) | payer MEDICARE | END 2021-03-29 23:41 | disposition home or self-care (01) | LOC: WOUND 00:44 | DX: T87.89 Other complications of amputation stump (principal); Z89.512 Acquired absence of left leg below knee ==

== ENCOUNTER 2021-04-01 03:14 | Day surgery (SDC) | payer MEDICARE | END 2021-04-01 23:26 | disposition home or self-care (01) | LOC: WOUND 03:14 | DX: S81.802A Unspecified open wound, left lower leg, initial encounter (principal); L03.116 Cellulitis of left lower limb; M79.672 Pain in left foot; E11.42 Type 2 diabetes mellitus with diabetic polyneuropathy; T87.44 Infection of amputation stump, left lower extremity; T87.89 Other complications of amputation stump; Z79.4 Long term (current) use of insulin; Z89.432 Acquired absence of left foot; Z89.512 Acquired absence of left leg below knee; X58.XXXA Exposure to other specified factors, initial encounter | CPT/HCPCS: A9270 ==

== ENCOUNTER 2021-04-03 00:33 | Day surgery (SDC) | payer MEDICARE | END 2021-04-03 23:35 | disposition home or self-care (01) | LOC: WOUND 00:33 | DX: T87.44 Infection of amputation stump, left lower extremity (principal); T87.89 Other complications of amputation stump; L03.116 Cellulitis of left lower limb; E11.42 Type 2 diabetes mellitus with diabetic polyneuropathy; Z79.4 Long term (current) use of insulin; Z89.432 Acquired absence of left foot; Z89.512 Acquired absence of left leg below knee ==

== ENCOUNTER 2021-04-05 01:54 | Day surgery (SDC) | payer MEDICARE | END 2021-04-05 12:00 | disposition home or self-care (01) | LOC: WOUND 01:54 | DX: T87.44 Infection of amputation stump, left lower extremity (principal); T87.89 Other complications of amputation stump; L03.116 Cellulitis of left lower limb; E11.42 Type 2 diabetes mellitus with diabetic polyneuropathy; Z79.4 Long term (current) use of insulin; Z89.432 Acquired absence of left foot; Z89.512 Acquired absence of left leg below knee ==

== ENCOUNTER 2021-04-08 01:48 | Day surgery (SDC) | payer MEDICARE | END 2021-04-08 23:16 | disposition home or self-care (01) | LOC: WOUND 01:48 | DX: T87.44 Infection of amputation stump, left lower extremity (principal); T87.89 Other complications of amputation stump; L03.116 Cellulitis of left lower limb; E11.42 Type 2 diabetes mellitus with diabetic polyneuropathy; Z79.4 Long term (current) use of insulin; Z89.432 Acquired absence of left foot; Z89.512 Acquired absence of left leg below knee | CPT/HCPCS: G0463 ==

== ENCOUNTER 2021-04-10 00:10 | Day surgery (SDC) | payer MEDICARE | END 2021-04-10 23:22 | disposition home or self-care (01) | LOC: WOUND 00:10 | DX: S81.802A Unspecified open wound, left lower leg, initial encounter (principal); L03.116 Cellulitis of left lower limb; M79.672 Pain in left foot; E11.42 Type 2 diabetes mellitus with diabetic polyneuropathy; T87.44 Infection of amputation stump, left lower extremity; T87.89 Other complications of amputation stump; E11.9 Type 2 diabetes mellitus without complications; Z79.4 Long term (current) use of insulin; Z89.432 Acquired absence of left foot; Z89.512 Acquired absence of left leg below knee | CPT/HCPCS: A9270; G0463 ==

== ENCOUNTER 2021-04-17 00:55 | Day surgery (SDC) | payer MEDICARE | END 2021-04-17 22:50 | disposition home or self-care (01) | LOC: WOUND 00:55 | DX: T87.44 Infection of amputation stump, left lower extremity (principal); L03.116 Cellulitis of left lower limb; Y83.8 Other surgical procedures as the cause of abnormal reaction of the patient, or of later complication, without mention of misadventure at the time of the procedure; E11.42 Type 2 diabetes mellitus with diabetic polyneuropathy; Z79.4 Long term (current) use of insulin; Z89.432 Acquired absence of left foot; Z89.512 Acquired absence of left leg below knee | CPT/HCPCS: A9270; G0463 ==

== ENCOUNTER 2021-04-24 01:14 | Day surgery (SDC) | payer MEDICARE | END 2021-04-24 23:22 | disposition home or self-care (01) | LOC: WOUND 01:14 | DX: E11.621 Type 2 diabetes mellitus with foot ulcer (principal); L97.522 Non-pressure chronic ulcer of other part of left foot with fat layer exposed; Z89.432 Acquired absence of left foot | CPT/HCPCS: G0463 ==

== ENCOUNTER 2021-05-08 01:15 | Day surgery (SDC) | payer MEDICARE | END 2021-05-08 23:14 | disposition home or self-care (01) | LOC: WOUND 01:15 | DX: T87.44 Infection of amputation stump, left lower extremity (principal); T87.89 Other complications of amputation stump; L03.116 Cellulitis of left lower limb; M79.672 Pain in left foot; E11.42 Type 2 diabetes mellitus with diabetic polyneuropathy; Z79.4 Long term (current) use of insulin; Z89.512 Acquired absence of left leg below knee | CPT/HCPCS: A9270; G0463 ==

== ENCOUNTER 2021-05-22 00:28 | Day surgery (SDC) | payer MEDICARE | END 2021-05-22 23:01 | disposition home or self-care (01) | LOC: WOUND 00:28 | DX: Z09 Encounter for follow-up examination after completed treatment for conditions other than malignant neoplasm (principal); Z87.2 Personal history of diseases of the skin and subcutaneous tissue; Z86.31 Personal history of diabetic foot ulcer; L03.116 Cellulitis of left lower limb; E11.42 Type 2 diabetes mellitus with diabetic polyneuropathy; T87.44 Infection of amputation stump, left lower extremity; E11.22 Type 2 diabetes mellitus with diabetic chronic kidney disease; Z79.4 Long term (current) use of insulin; Z89.512 Acquired absence of left leg below knee | CPT/HCPCS: G0463 ==

== ENCOUNTER 2022-06-18 14:39 | Inpatient (IN) | payer MEDICARE ==
[~2022-06-18] VITALS: Ht 180.3 cm; Wt 74.8 kg
[2022-06-18 15:15] LABS: BASOPHILS ABSOLUTE AUTO 0.11 K/mm3 (0.00-0.23); BASOPHILS PERCENT AUTO 0 % (0-2); EOSINOPHILS ABSOLUTE AUTO 0.03 K/mm3 (0.00-0.68); EOSINOPHILS PERCENT AUTO 0 % (0-6); Hematocrit 39.7 % (33.0-51.0); Hemoglobin 12.8 g/dL (11.5-16.0); IMMATURE GRAN ABSOLUTE AUTO 0.17 K/mm3 (0.00-0.10); IMMATURE GRAN PERCENT AUTO 1 % (0-1); LYMPHOCYTES ABSOLUTE AUTO 1.27 K/mm3 (0.84-5.20); LYMPHOCYTES PERCENT AUTO 5 % (21-46); MONOCYTES ABSOLUTE AUTO 1.14 K/mm3 (0.16-1.47); MONOCYTES PERCENT AUTO 5 % (4-13); Mean Corpuscular HGB 29.5 pg (26.0-34.0); Mean Corpuscular HGB Conc 32.2 g/dL (31.5-36.5); Mean Corpuscular Volume 92 fL (80-100); Mean Platelet Volume 9.3 fL (9.1-12.4); NEUTROPHILS PERCENT AUTO 89 % (41-73); Platelet Count 824 K/mm3 (150-400); RDW Coefficient Variation 14.2 % (11.7-14.2); RDW Standard Deviation 48.3 fL (35.1-46.3); Red Blood Cell Count 4.34 M/mm3 (3.80-5.20); White Blood Cell Count 25.12 K/mm3 (4.00-11.30)
[2022-06-18 15:33] LABS: Albumin, Blood 1.9 g/dL (3.4-5.0); Albumin/Globulin Ratio 0.3 (0.8-1.8); Bilirubin, Total 0.7 mg/dL (0.1-1.0); Bun/Creatinine Ratio 22.5 (12.0-20.0); Calcium, Blood 8.5 mg/dL (8.5-10.1); Creatinine, Blood 0.71 mg/dL (0.40-1.00); Globulin, Blood 6.1 g/dL (2.2-4.0); Potassium, Blood 4.5 mmol/L (3.5-5.5)
[2022-06-18 22:16] VITALS: BP 155/75
[2022-06-19 04:15] VITALS: BP 147/74
--- NOTE | 2022-06-19 04:19 | NUR ---
PT ARRIVED ON UNIT AT 2210. HAD MILD PAIN AT TIME OF ADMITTANCE BUT WAS ABLE TO MANAGE WITHOUT MEDICATION. SKIN ASSESSMENT REMARKABLE FOR CELLULITIS OF RIGHT LOWER LEG. LUMP ON RIGHT SIDE OF CHEST ABOVE BREAST, REPORTED LIPOMA BASED ON PHYSICIAN NOTE FROM ED. OLD WELL HEALED SCAR ON CHEST FROM PREVIOUS SURGERY PER PT. HX OF LEFT BKA. ADA DIET. ACHS. ADMINISTERED 50 UNITS OF INSULIN GLARGINE. PROVIDED SNACKS IN ACCORDANCE WITH DIET ORDER. PT AOX4, PLEASANT, COOPERATIVE WITH CARE. PROSTHETIC REMOVED BY PT ON ADMITTANCE, SELF REPORTED INDEPENDENT AT BASELINE WITH USE OF PROSTHETIC. REST OF SHIFT HAS BEEN UNREMARKABLE. PT SLEPT THROUGH MUCH OF SHIFT. BED LOCKED IN LOWEST POSITION. CALL LIGHT LEFT WITHIN REACH.
[2022-06-19 04:56] LABS: BASOPHILS ABSOLUTE AUTO 0.08 K/mm3 (0.00-0.23); BASOPHILS PERCENT AUTO 0 % (0-2); EOSINOPHILS ABSOLUTE AUTO 0.09 K/mm3 (0.00-0.68); EOSINOPHILS PERCENT AUTO 0 % (0-6); Hematocrit 32.6 % (33.0-51.0); Hemoglobin 10.7 g/dL (11.5-16.0); IMMATURE GRAN ABSOLUTE AUTO 0.12 K/mm3 (0.00-0.10); IMMATURE GRAN PERCENT AUTO 1 % (0-1); LYMPHOCYTES ABSOLUTE AUTO 2.21 K/mm3 (0.84-5.20); LYMPHOCYTES PERCENT AUTO 10 % (21-46); MONOCYTES ABSOLUTE AUTO 1.55 K/mm3 (0.16-1.47); MONOCYTES PERCENT AUTO 7 % (4-13); Mean Corpuscular HGB 29.4 pg (26.0-34.0); Mean Corpuscular HGB Conc 32.8 g/dL (31.5-36.5); Mean Corpuscular Volume 90 fL (80-100); NEUTROPHILS ABSOLUTE AUTO 17.72 K/mm3 (1.96-9.15); NEUTROPHILS PERCENT AUTO 81 % (41-73); Platelet Count 753 K/mm3 (150-400); RDW Coefficient Variation 14.4 % (11.7-14.2); RDW Standard Deviation 47.3 fL (35.1-46.3); Red Blood Cell Count 3.64 M/mm3 (3.80-5.20); White Blood Cell Count 21.77 K/mm3 (4.00-11.30)
[2022-06-19 05:40] LABS: Albumin, Blood 1.5 g/dL (3.4-5.0); Albumin/Globulin Ratio 0.3 (0.8-1.8); Bilirubin, Total 0.5 mg/dL (0.1-1.0); Bun/Creatinine Ratio 26.2 (12.0-20.0); Calcium, Blood 7.9 mg/dL (8.5-10.1); Creatinine, Blood 0.61 mg/dL (0.40-1.00); Globulin, Blood 5.1 g/dL (2.2-4.0); Magnesium, Blood 1.4 mg/dL (1.6-2.4); Potassium, Blood 3.6 mmol/L (3.5-5.5); Total Protein, Blood 6.6 g/dL (6.4-8.2)
[2022-06-19 07:15] VITALS: BP 149/75
--- NOTE | 2022-06-19 07:29 | NUR ---
PT BLOOD SUGAR 46. PROVIDED APPLE JUICE AND WILL RECHECK.
[2022-06-19 14:38] VITALS: BP 125/77
--- NOTE | 2022-06-19 18:10 | NUR ---
SHIFT SUMMARY: PT A&O X4. PT HAS BEEN PLEASANT AND COOPERATIVE WITH ALL CARE. PT STARTED THE DAY WITH A CBG OF 46. APPLE JUICE AND BREAKFAST PROVIDED BRINGING CBG TO 137. PT ABLE TO HAVE CONTINENT BM ON BSC WITH HELP OF TWO PERSON ASSIST. PT TO WEAK TO STAND FROM COMMODE DUE TO WEAKNESS AND LEFT BKA. POSITIVE BLOOD CULTURE SHOWED GRAM POSITIVE COCCI IN CHAINS. VANCOMYCIN D/C AND ROCEPHIN ADDED DAILY. PT C/O PAIN TWICE IN RIGHT SHOULDER, ARMPIT, AND ARM. TYLENOL PROVIDED. PT DENIES PAIN IN AREAS OF CELLULITIS. SLIGHTLY LOWER THAN NORMAL MAGNESIUM WITH MORNING LABS. ONE TIME MAGNESIUM IV PROVIDED W/O COMPLICATIONS. CALL LIGHT IN REACH. BED IN LOWEST POSITION. WILL CONTINUE TO MONITOR.
[2022-06-19 19:12] VITALS: BP 130/74
--- NOTE | 2022-06-20 03:41 | NUR ---
SHIFT UNREMARKABLE. PT TOOK 2100 LANTUS 25 UNITS AND HAS SLEPT THROUGH MUCH OF REMAINDER OF SHIFT. PAIN WELL MANAGED ON CURRENT MEDICATION REGIMEN. AOX4, PLEASANT AND COOPERATIVE WITH CARE. BED LOCKED IN LOWEST POSITION. CALL LIGHT LEFT WITHIN REACH.
[2022-06-20 04:15] VITALS: BP 152/77
[2022-06-20 05:38] LABS: Hematocrit 33.4 % (33.0-51.0); Hemoglobin 10.9 g/dL (11.5-16.0); Mean Corpuscular HGB 29.5 pg (26.0-34.0); Mean Corpuscular HGB Conc 32.6 g/dL (31.5-36.5); Mean Corpuscular Volume 90 fL (80-100); Mean Platelet Volume 9.9 fL (9.1-12.4); Platelet Count 711 K/mm3 (150-400); RDW Coefficient Variation 14.5 % (11.7-14.2); RDW Standard Deviation 48.5 fL (35.1-46.3); White Blood Cell Count 17.34 K/mm3 (4.00-11.30)
[2022-06-20 05:58] LABS: Magnesium, Blood 1.7 mg/dL (1.6-2.4)
[2022-06-20 06:00] LABS: Albumin, Blood 1.4 g/dL (3.4-5.0); Anion Gap 5 mmol/L (6-16); Blood Urea Nitrogen 21 mg/dL (8-24); Bun/Creatinine Ratio 34.8 (12.0-20.0); CO2, Blood 28 mmol/L (21-32); Calcium, Blood 7.9 mg/dL (8.5-10.1); Chloride, Blood 101 mmol/L (98-108); Glomerular Filtration Rate 106 (60-); Glucose, Blood 164 mg/dL (70-99); Phosphorus, Blood 3.4 mg/dL (2.5-4.9); Potassium, Blood 4.2 mmol/L (3.5-5.5); Sodium, Blood 134 mmol/L (136-145)
[2022-06-20 07:45] VITALS: BP 149/78
[2022-06-20 14:46] VITALS: BP 141/76
--- NOTE | 2022-06-20 16:38 | NUR ---
SHIFT SUMMARY: PT A&O X4. PT HAS BEEN PLEASANT AND COOPERATIVE WITH CARE. NO INSULIN COVERAGE NEEDED FOR BREAKFAST. PT CONTINUES TO C/O R. SHOULDER PAIN W/SLIGHT RELIEF WITH PRN PAIN MEDICATION. CT OF R. SHOULDER PERFORMED THIS AFTERNOON AND AWAITING RESULTS. PT ON DAILY ROCEPHIN. WHITE CELLS TRENDING DOWNWARD. PT UPSET THIS MORNING/AFTERNOON DUE TO THE FACT THAT HE IS IN THE HOSPITAL AND UPSET ABOUT HOME SITUATION AND RECENT LOSS OF FAMILY AND PARTNER. BARRER AND TACKER IN TO SEE PT THIS AFTERNOON. PLAN TO D/C WITH INSULIN COVERAGE PER BARRER AND TACKER ASSESSMENT NOTE. PT SAT ON EDGE OF BED FOR MEALS THIS SHIFT. STATES IT HELPS WITH EATING AND PAIN. CALL LIGHT IN REACH. BED IN LOWEST POSITION. WILL CONTINUE TO MONITOR.
[2022-06-20 19:34] VITALS: BP 160/76
[2022-06-21 03:00] VITALS: BP 174/92
--- NOTE | 2022-06-21 03:50 | NUR ---
SHIFT UNREMARKABLE. PT HAS SLEPT THROUGH MUCH OF SHIFT. PAIN ADEQUATELY MANAGED ON CURRENT MEDICATION REGIMEN. RUE EDEMA NOTED ON ASSESSMENT, PT REPORTS PAIN ALONG RUE AND RIGHT SHOULDER. REVIEWED CT SCAN WHICH INDICATED DIFFUSE CELLULITIS OF R. SHOULDER/AXILLA. SUBCUTANEOUS EDEMA NOTED ON CT WELL. ENCOURAGED PT TO DISCUSS WITH PHYSICIAN IN MORNING. SHIFT OTHERWISE NOT REMARKABLE. PT TOLERATING PO INTAKE WELL. CALLS APPROPRIATELY. BED LOCKED IN LOWEST POSITION. CALL LIGHT LEFT WITHIN REACH.
[2022-06-21 07:11] VITALS: BP 148/86
[2022-06-21 09:13] LABS: Hematocrit 35.7 % (33.0-51.0); Hemoglobin 11.4 g/dL (11.5-16.0); Mean Corpuscular HGB 29.4 pg (26.0-34.0); Mean Corpuscular HGB Conc 31.9 g/dL (31.5-36.5); Mean Corpuscular Volume 92 fL (80-100); Mean Platelet Volume 9.2 fL (9.1-12.4); Platelet Count 715 K/mm3 (150-400); RDW Coefficient Variation 14.2 % (11.7-14.2); RDW Standard Deviation 48.7 fL (35.1-46.3); Red Blood Cell Count 3.88 M/mm3 (3.80-5.20); White Blood Cell Count 16.37 K/mm3 (4.00-11.30)
[2022-06-21 09:29] LABS: Albumin, Blood 1.5 g/dL (3.4-5.0); Anion Gap 4 mmol/L (6-16); Blood Urea Nitrogen 18 mg/dL (8-24); Bun/Creatinine Ratio 36.2 (12.0-20.0); CO2, Blood 28 mmol/L (21-32); Calcium, Blood 8.4 mg/dL (8.5-10.1); Chloride, Blood 99 mmol/L (98-108); Glomerular Filtration Rate 111 (60-); Glucose, Blood 244 mg/dL (70-99); Phosphorus, Blood 3.5 mg/dL (2.5-4.9); Potassium, Blood 4.6 mmol/L (3.5-5.5); Sodium, Blood 131 mmol/L (136-145)
[2022-06-21 14:48] VITALS: BP 138/81
--- NOTE | 2022-06-21 18:50 | NUR ---
no acute changes, started pt, makes needs known, call light with in reach
[2022-06-21 19:49] VITALS: BP 150/82
--- NOTE | 2022-06-22 04:35 | NUR ---
SHIFT SUMMARY NO ACUTE CHANGES THIS SHIFT. PT C/O R SHOULDER PAIN, MEDICATED PER THE EMAR. PT USING THE URINAL INDEPENDENTLY. SHE SEEMED TO SLEEP PORTIONS OF THE NIGHT, AT TIMES AWAKE DURING ROUNDING. PT STILL WEAK AND UNABLE TO USE THAT LEFT ARM. CALL LIGHT IS WITHIN REACH, BED IN THE LOWEST POSITION. WILL REPORT TO ONCOMING NURSE.
[2022-06-22 04:40] LABS: Hematocrit 32.8 % (33.0-51.0); Hemoglobin 10.6 g/dL (11.5-16.0); Mean Corpuscular HGB 29.4 pg (26.0-34.0); Mean Corpuscular HGB Conc 32.3 g/dL (31.5-36.5); Mean Corpuscular Volume 91 fL (80-100); Mean Platelet Volume 9.2 fL (9.1-12.4); Platelet Count 664 K/mm3 (150-400); RDW Coefficient Variation 13.9 % (11.7-14.2); RDW Standard Deviation 46.9 fL (35.1-46.3); White Blood Cell Count 15.01 K/mm3 (4.00-11.30)
[2022-06-22 04:55] LABS: Albumin, Blood 1.5 g/dL (3.4-5.0); Anion Gap 4 mmol/L (6-16); Blood Urea Nitrogen 20 mg/dL (8-24); Bun/Creatinine Ratio 30.3 (12.0-20.0); CO2, Blood 31 mmol/L (21-32); Calcium, Blood 8.6 mg/dL (8.5-10.1); Chloride, Blood 97 mmol/L (98-108); Creatinine, Blood 0.66 mg/dL (0.40-1.00); Glomerular Filtration Rate 104 (60-); Glucose, Blood 297 mg/dL (70-99); Potassium, Blood 4.3 mmol/L (3.5-5.5); Sodium, Blood 132 mmol/L (136-145)
[2022-06-22 05:05] VITALS: BP 145/77
[2022-06-22 07:53] VITALS: BP 145/82
--- NOTE | 2022-06-22 09:28 | NUR ---
NURSE NOTE THIS NURSE HAS REVIEWED AND AGREED WITH STUDENT NURSE SHIFT ASSESSMENT
[2022-06-22 15:23] VITALS: BP 151/80
--- NOTE | 2022-06-22 16:08 | NUR ---
PATIENT REMAINS IN BED THROUGHOUT THIS SHIFT CITING PAIN WITH MOVEMENT FOCUSED TO RIGHT SHOULDER. THE PATIENT DENIES PAIN TO THE RLE. PATIENT MEDICATED WITH PRN PERCOCET WITH STATED RELIEF OF 5/10. PATIENT SETS TOLERABLE PAIN GOAL OF <7/10 (10MAX). PATIENT UTILIZING URINAL TO VOID WHILE IN BED. PATIENT EXPRESSES INTEREST IN SPEAKING TO A "COUNSELOR" WHEN AVAILABLE. PT/OT TO EVALUATE FURTHER.
[2022-06-22 19:28] VITALS: BP 144/84
[2022-06-23 03:19] VITALS: BP 146/82
[2022-06-23 04:56] LABS: Hematocrit 32.4 % (33.0-51.0); Hemoglobin 10.6 g/dL (11.5-16.0); Mean Corpuscular HGB 29.4 pg (26.0-34.0); Mean Corpuscular HGB Conc 32.7 g/dL (31.5-36.5); Mean Corpuscular Volume 90 fL (80-100); Mean Platelet Volume 9.3 fL (9.1-12.4); Platelet Count 673 K/mm3 (150-400); RDW Coefficient Variation 13.9 % (11.7-14.2); RDW Standard Deviation 45.7 fL (35.1-46.3); Red Blood Cell Count 3.61 M/mm3 (3.80-5.20); White Blood Cell Count 15.06 K/mm3 (4.00-11.30)
[2022-06-23 05:28] LABS: Albumin, Blood 1.5 g/dL (3.4-5.0); Anion Gap 3 mmol/L (6-16); Blood Urea Nitrogen 22 mg/dL (8-24); CO2, Blood 32 mmol/L (21-32); Calcium, Blood 8.3 mg/dL (8.5-10.1); Chloride, Blood 97 mmol/L (98-108); Creatinine, Blood 0.51 mg/dL (0.40-1.00); Glomerular Filtration Rate 110 (60-); Glucose, Blood 201 mg/dL (70-99); Phosphorus, Blood 3.1 mg/dL (2.5-4.9); Potassium, Blood 4.2 mmol/L (3.5-5.5); Sodium, Blood 132 mmol/L (136-145)
--- NOTE | 2022-06-23 06:01 | NUR ---
PT REQUESTING TYLENOL LATER IN EVENING, SLEPT MOST OF SHIFT
[2022-06-23 07:39] VITALS: BP 154/79
--- NOTE | 2022-06-23 13:03 | NUR ---
AM ASSESSMENT I WAS PRESENT DURING AND AGREE WITH THE STUDENT RN BETO'S AM ASSESSMENT AND DOCUMENTATION ON THIS PATIENT
[2022-06-23 15:54] VITALS: BP 130/69
--- NOTE | 2022-06-23 18:04 | NUR ---
PT IS A/OX4, PLEASANT AND COOPERATIVE. THE PT IS UP WITH ASSIST USEING HER PROSTHETIC LEG. THE PT WAS UP WITH THE OCCUPATIONAL AND PHYSICAL THERAPIST. THE PT WAS MEDICATED FOR RIGHT SHOULDER PAIN X1 SO FAR THIS SHIFT. PT APPEARS TO BE BREATHING EASILY ON RA AT REST. CALL LIGHT IN REACH, WILL CONTINUE TO MONITOR AND ASSESS FOR CHANGES
[2022-06-23 19:58] VITALS: BP 140/72
[2022-06-24 04:28] VITALS: BP 130/79
--- NOTE | 2022-06-24 04:53 | NUR ---
PT R FOOT MORE RED AND SWOLLEN THAN PREVIOUS NIGHT, OPEN WOUND AROUND GREAT TOE LARGER, WRAPPED WITH KERLIX AFTER PT SHOWERED. NOTIFIED DR, PT C/O MORE PAIN IN FOOT, 1 TIME IV DOSE DILAUDID FOR BTP. CONTINUE WITH PERCOCET AND TYLENOL.
[2022-06-24 05:18] LABS: Bun/Creatinine Ratio 42.2 (12.0-20.0); Calcium, Blood 8.2 mg/dL (8.5-10.1); Creatinine, Blood 0.59 mg/dL (0.40-1.00); Potassium, Blood 4.1 mmol/L (3.5-5.5)
[2022-06-24 07:31] VITALS: BP 147/81
[2022-06-24 15:45] VITALS: BP 136/76
--- NOTE | 2022-06-24 16:41 | NUR ---
Upon receiving a request for spiritual care, I visit the patient. Pt talks about her personal struggles, regarding, amputation, value and purpose in life, spiritual beliefs and grief and loss of loved ones (dtr, ex-spouse, brother and parents all ). We explore sources of worth and meaning, sources of love and connection and sources mental and emotional grounding. Patient responded well and showed signs of deep contemplation and restored hope and roger. I will cotninue to remain aavailable to patient and family.
--- NOTE | 2022-06-24 17:21 | NUR ---
PT IS A/OX4, PLEASANT AND COOPERATIVE. THE PT IS UP WITH ASSIST USEING HIS PROSTHETIC LEG. THE PT APPEARS TO BE BREATHING EASILY ON RA AT THIS TIME. THIS AFTERNOON SUPERVISOR HYDROCHLORIC AREA CONSULTED ON THE PT AND LANCED THE PTS RIGHT FOOT AT THE BEDSIDE. THE PT WAS MEDICATED FOR BREAKTHROUGH PAIN. PT IS TO BE NPO AFTER [place] TONIGHT FOR PLANNED I&D TOMORROW. AT THE PTS REQUEST SPIRITUAL CARE CAME TO THE BEDSIDE AND CONSULTED WITH THE PT. CALL LIGHT IN REACH, WILL CONTINUE TO MONITOR AND ASSESS FOR CHANGES
[2022-06-24 19:35] VITALS: BP 120/71
[2022-06-25] VITALS (16 sets, daily range): BP systolic 95–151; BP diastolic 62–88
[2022-06-25 05:41] LABS: Bun/Creatinine Ratio 45.5 (12.0-20.0); Calcium, Blood 8.5 mg/dL (8.5-10.1); Creatinine, Blood 0.66 mg/dL (0.40-1.00); Potassium, Blood 4.1 mmol/L (3.5-5.5)
--- NOTE | 2022-06-25 14:50 | NUR ---
Into sds via bed. Pt is awake, alert, oriented, but tearful and anxious. History, Chart, Medications and Allergies reviewed before start of procedure.Lungs clear T/O to Auscultation. Patient confirms NPO status and agrees with scheduled surgery.CBG 112.
--- NOTE | 2022-06-25 14:56 | NUR ---
LEFT AC IV #20 SITE C/D/I. INSERTED 06/18/22.
--- NOTE | 2022-06-25 16:43 | NUR ---
am assessment I AGREE WITH THE STUDENT NURSE BETO'S AM ASSESSMENT AND DOCUMENTATION ON THIS PATIENT AND WAS PRESENT DURING THE ASSESSMENT
--- NOTE | 2022-06-25 18:17 | NUR ---
PT A/OX3, PLEASANT AND COOPERATIVE. PT IS UP WITH ASSIST USE HIS PROSTHETIC LEG. PT APPEARS TO BE BREATHING EASILY ON RA. THE PT WAS TAKEN TO THE OR THIS AFTERNOON FOR AN I&D. PT TOLERATED THE PROCEDURE WELL, VSS. PT MEDICATED FOR PAIN T/O THE DAY. CALL LIGHT IN REACH. WILL CONTINUE TO MONTOR AND ASSESS FOR CHANGES
--- NOTE | 2022-06-25 18:20 | NUR ---
END OF SHIFT SUMMARY: SUMAN WAS NPO BETWEEN 2200 LAST NIGHT AND 1730 TODAY. SHE HAD AN INCISION AND DRAINIAGE PROCEEDURE PERFORMED ON HER FOOT AND RETURNED TO HER ROOM AROUND 1730. INSULIN WAS D/CD TODAY AND HER BLOOD SUGAR WAS LOW DT NOT EATING. SHE WAS ABLE TO AMBULATE W/O ASSISTANCE OF STAFF TO AND FROM THE BATHROOM. PATIENT WAS PLEASANT AND COOPERATIVE WITH CARE DURING THIS SHIFT.
[2022-06-26 05:40] LABS: Bun/Creatinine Ratio 39.9 (12.0-20.0); Calcium, Blood 8.3 mg/dL (8.5-10.1); Creatinine, Blood 0.73 mg/dL (0.40-1.00); Potassium, Blood 3.9 mmol/L (3.5-5.5)
--- NOTE | 2022-06-26 06:47 | NUR ---
AOX4, PLEASANT, MAKES NEEDS KNOWN, USES URINAL INDEPENDENTLY, DILUADID PRN GIVEN X2 FOR R FOOT AND R SHOULDER PAIN. PT HAS ANXIETY ABOUT DISCHARGE DUE TO PREVIOUS COMPLICATIONS FOLLOWING DC. R FOOT DRESSING C/D/I FROM YESTERDAY.
[2022-06-26 07:50] VITALS: BP 138/74
--- NOTE | 2022-06-26 11:25 | NUR ---
Patient immediately voiced his frustrations about what he thought was a successful surgery yesterday only (according to patient) to then be told today that there could be more surgeries. Patient felt like he could not even get one day to have some hope and celebrate a small victory. We then talk about hope and the challenges of having a very serious medical condition. We explore deeper sources of resilience and inspiration. I help organize his rm for him because according to the patient he has an OCD disorder. Patient showed signs of reduced stress and increased hope. I will continue to remain available
[2022-06-26 16:08] VITALS: BP 117/66
--- NOTE | 2022-06-26 16:57 | NUR ---
SHIFT SUMMARY PATIENT WITH PAIN IN RIGHT SHOULDER AND RIGHT FOOT, MEDICATED PER EMAR. BED IN LOW POSITION, CALL LIGHT IN REACH. PATIENT CALLS APPROPRIATELY.
--- NOTE | 2022-06-27 07:53 | NUR ---
R FOOT DRESSING CDI, NWB ON R FOOT WITH L BKA, DID NOT GET OUT OF BED. USES URINAL INDEPENDENTLY. DILAUDID GIVEN X2 FOR PAIN. NO EVENTS OVER NIGHT.
[2022-06-27 07:56] VITALS: BP 143/76
[2022-06-27] MEDS ORDERED: INSULANI SC (13:51)
[2022-06-27] MEDS ORDERED: HUMALOG JU100 UNIT/2 SC (13:55)
[2022-06-27] MEDS ORDERED: JARDIANCE10 MG PO (13:57)
[2022-06-27] MEDS ORDERED: LOSA25 PO (13:57)
[2022-06-27] MEDS ORDERED: FURO40 PO (13:58)
[2022-06-27] MEDS ORDERED: VISBIOME 112.51 EACH PO (13:59)
[2022-06-27] MEDS ORDERED: METO25ER PO (13:59)
[2022-06-27] MEDS ORDERED: SULTRIDS PO (14:00)
[2022-06-27 14:56] LABS: Influenza A, PCR NEGATIVE (NEGATIVE); Influenza B, PCR NEGATIVE (NEGATIVE); Resp Syncytial Virus, PCR NEGATIVE (NEGATIVE); SARS-Cov-2 (COVID-19) PCR, MMC NEGATIVE (NEGATIVE)
--- NOTE | 2022-06-27 15:40 | NUR ---
PHONE REPORT REPORT GIVEN TO GREGORIO HERNDON AT [facility] ON PATIENT HISTORY, STATUS, WOUND CARE AND OTHER ORDERS
--- NOTE | 2022-06-27 15:56 | NUR ---
WOUND CARE DRESSING REMOVED, 25% SEROSANGUENOUS DRAINAGE NOTED TO OUTER DRESSING, PACKING REMOVED. WOUND BED MOSTLY BEEFY RED WITH SMALL WHITE /NAIK AREA AT DISTAL WOUND MOVING DOWN BETWEEN GREAT AND 3RD TOE. SURROUNDING TISSUE WITH ERYTHEMA WHICH REMAINS UNCHANGED FROM YESTERDAY. AREA CLEANSED WITH SALINE AND GAUZE, WET GAUZE PLACED IN WOUND BED AND COVERED WITH ROLLED GAUZE AND SECURED WITH ZACH WRAP. DRESSING CHANGE DONE AT 1420
[2022-06-27 16:14] VITALS: BP 137/76
--- NOTE | 2022-06-27 16:30 | NUR ---
DISCHARGE SUMMARY PATIENT PROVIDED EDUCATION PACKET. ALL QUESTIONS ANSWERED. WHEELED OUT OF ROOM FOR TRANSFER TO [facility] AT 1628 06/27/22 BY [facility]
--- NOTE | 2022-06-27 18:07 | NUR ---
THIS PROFESSIONAL SECURITY OFFICER HAS REVIEWED AND AGREES WITH ALL NOTES AND ASSESSMENTS BY GREGORIO CARMENCITA.
== END 2022-06-27 16:30 | DRG 853 ==
LOC: ER 14:39 → MEDS 14:40 → ENPENDDIS 06-27 12:47 → MEDS 06-27 16:30
PROVIDERS: Internal Medicine; Physician Assistant; Podiatrist Foot & Ankle Surgery; ADMIT Student in an Organized Health Care Education/Training Program
PROC: 3E03329 Introduction of Other Anti-infective into Peripheral Vein, Percutaneous Approach (ICD-10-PCS; 2022-06-19)
PROC: 0S9 Lower Joints, Drainage (ICD-10-PCS; 2022-06-24)
PROC: 0QBN0ZX Excision of Right Metatarsal, Open Approach, Diagnostic (ICD-10-PCS; 2022-06-25)
PROC: 0JBQ0ZZ Excision of Right Foot Subcutaneous Tissue and Fascia, Open Approach (ICD-10-PCS; principal; 2022-06-25 15:30)
DX: A40.1 Sepsis due to streptococcus, group B (principal); I50.23 Acute on chronic systolic (congestive) heart failure; L03.115 Cellulitis of right lower limb; L02.611 Cutaneous abscess of right foot; Z66 Do not resuscitate; Z20.822 Contact with and (suspected) exposure to COVID-19; R07.89 Other chest pain; I11.0 Hypertensive heart disease with heart failure; E11.65 Type 2 diabetes mellitus with hyperglycemia; E11.649 Type 2 diabetes mellitus with hypoglycemia without coma; E83.42 Hypomagnesemia; E11.42 Type 2 diabetes mellitus with diabetic polyneuropathy; I25.10 Atherosclerotic heart disease of native coronary artery without angina pectoris; F32.A Depression, unspecified; E11.40 Type 2 diabetes mellitus with diabetic neuropathy, unspecified; I25.2 Old myocardial infarction; F17.200 Nicotine dependence, unspecified, uncomplicated; Z95.1 Presence of aortocoronary bypass graft; Z89.512 Acquired absence of left leg below knee; Z89.421 Acquired absence of other right toe(s); Z88.8 Allergy status to other drugs, medicaments and biological substances; Z79.891 Long term (current) use of opiate analgesic; Z87.731 Personal history of (corrected) tracheoesophageal fistula or atresia; Z79.4 Long term (current) use of insulin; Z79.899 Other long term (current) drug therapy
CPT/HCPCS: 0241U; 36415; 71046; 73200; 73620; 73720; 80048; 80053; 80069; 82947; 83036; 83605; 83690; 83735; 83880; 85025; 85027; 87040; 87070; 87071; 87075; 87077; 87147; 87186; 87205; 88305; 88311; 93005; 93010; 93306; 96365; 96366; 96367; 97110; 97116; 97140; 97162; 97167; 97530; 97535; 99285-25; A9270; A9579; G0378; J0690; J0696; J1170; J1650; J1815; J1940; J2001; J2370; J2405; J2704; J2765; J3010; J3370; J3475; J7030; J7050; J7120

== ENCOUNTER → 2022-07-15 | Outpatient (CLI) | payer MEDICARE ==
[~2022-07-15] MED LIST changes: +FURO40 PO; +HUMALOG JU100 UNIT/2 SC; +INSULANI SC; +JARDIANCE10 MG PO; +LOSA25 PO; +METO25ER PO; +SULTRIDS PO
== END ==
LOC: LAB SHORT 14:54 → PLD 14:54
DX: E11.621 Type 2 diabetes mellitus with foot ulcer (principal); E11.52 Type 2 diabetes mellitus with diabetic peripheral angiopathy with gangrene; E11.42 Type 2 diabetes mellitus with diabetic polyneuropathy; E11.69 Type 2 diabetes mellitus with other specified complication; M86.171 Other acute osteomyelitis, right ankle and foot
CPT/HCPCS: 88305; 88311

== ENCOUNTER 2022-07-24 19:17 | Inpatient (IN) | payer MEDICARE ==
[~2022-07-24] VITALS: Ht 180.3 cm; Wt 76.1 kg
[2022-07-24 20:07] LABS: BASOPHILS ABSOLUTE AUTO 0.09 K/mm3 (0.00-0.23); BASOPHILS PERCENT AUTO 1 % (0-2); EOSINOPHILS ABSOLUTE AUTO 0.07 K/mm3 (0.00-0.68); EOSINOPHILS PERCENT AUTO 0 % (0-6); Hematocrit 34.9 % (33.0-51.0); Hemoglobin 10.9 g/dL (11.5-16.0); IMMATURE GRAN ABSOLUTE AUTO 0.08 K/mm3 (0.00-0.10); IMMATURE GRAN PERCENT AUTO 0 % (0-1); LYMPHOCYTES ABSOLUTE AUTO 1.84 K/mm3 (0.84-5.20); LYMPHOCYTES PERCENT AUTO 10 % (21-46); MONOCYTES ABSOLUTE AUTO 1.02 K/mm3 (0.16-1.47); MONOCYTES PERCENT AUTO 6 % (4-13); Mean Corpuscular HGB 29.2 pg (26.0-34.0); Mean Corpuscular HGB Conc 31.2 g/dL (31.5-36.5); Mean Corpuscular Volume 94 fL (80-100); Mean Platelet Volume 9.2 fL (9.1-12.4); NEUTROPHILS ABSOLUTE AUTO 15.53 K/mm3 (1.96-9.15); NEUTROPHILS PERCENT AUTO 83 % (41-73); Platelet Count 470 K/mm3 (150-400); RDW Coefficient Variation 14.6 % (11.7-14.2); RDW Standard Deviation 50.8 fL (35.1-46.3); Red Blood Cell Count 3.73 M/mm3 (3.80-5.20); White Blood Cell Count 18.63 K/mm3 (4.00-11.30)
[2022-07-24 20:23] LABS: Albumin, Blood 2.9 g/dL (3.4-5.0); Albumin/Globulin Ratio 0.5 (0.8-1.8); Bilirubin, Total 0.4 mg/dL (0.1-1.0); Bun/Creatinine Ratio 33.3 (12.0-20.0); Calcium, Blood 9.1 mg/dL (8.5-10.1); Creatinine, Blood 0.66 mg/dL (0.40-1.00); Potassium, Blood 3.9 mmol/L (3.5-5.5); Total Protein, Blood 8.9 g/dL (6.4-8.2)
[2022-07-25 00:48] VITALS: BP 149/85
--- NOTE | 2022-07-25 01:33 | NUR ---
ARRIVAL TO THE UNIT: PT ARRIVED TO THE UNIT AT APPROXIMATELY 0025. PT WAS ABLE TO SELF TRANSFER TO THE BED. VITALS WERE TAKEDN, PULSE FOUND TO BE SLIGHTLY ELEVATED. PT APPEARS TO BE IN NO DISTRESS BUT EXPRESSES IRRITABILITY WITH THE SITUATION. EXPLAINED TO THE PT SOME OF THE ORDERS RECEIVED, SUCH NPO. PT EXPRESSED THAT "I HAVE BEEN FASTING SINCE DU BEEN HERE AND IT WILL BE OVER 20 HOURS BY THE TIME THEY COME AROUND." EXPLAINED TO THE PT THE REASON FOR AN NPO STATUS PRIOR TO CONSULTATION FOR POTENTIAL NEED FOR SURGERY. PT CHANGED INTO GOWN AND ORIENTED TO THE UNIT/ROOM. CALL LIGHT IS WIHTIN REACH AT THIS TIME.
--- NOTE | 2022-07-25 01:43 | NUR ---
PHYSICIAN CONTACT: UPON STARTING INITIAL ASSESSMENT OF THE PT THE PT MADE CERTAIN COMMENTS REGARDING SUICIDAL IDEATIONS THAT MADE THIS RN CONCERNED. PT STATED "IF I NEED HELP WITH THE BATHROOM AND SOMEONE WIPING MY BUTT I WILL FIND A WAY TO KILL MYSELF." AND "I HAVE NOTHING TO LIVE FOR." SI ASSESSMENT COMPLETED, PT FOUND TO BE A HIGH RISK WITH A REQUIREMENT FOR A 1:1 SITTER. DURING SI ASSESSMENT THAT WAS COMPLETED WITH TECHNOLOGY SUPPORT ANALYST, MEGAN PATEL. PT REPORTED "AFTER MY DAUGHTER I PUT A GUN IN MY MOUTH AND PULLED THE TRIGGER BUT IT DID NOT GO OFF. I CARRY THAT BULLET AROUND WITH ME. SOME PEOPLE CARRY CROSSES BUT I CARRY THAT A SIGN." AFTER COMPLETION OF THE SI ASSESSMNET, THE PT WAS NOTIFIED THAT PER POLICY, A SITTER WILL BE NECESSARY. THE PT BECOME UPSET AND STATED "IF YOURE GOING TO HAVE SOMEONE SIT THERE THEN THATS MY DECISION, I WILL LEAVE AMA." SPOKE WITH THE PT AND TOLD THE PT THAT WE CAN DISCUSS WITH THE NURSING CONSTRUCTION AREA MANAGER REGARDING THE SITUATION. NURSING CONSTRUCTION AREA MANAGER WAS UPDATED AND PER NURSING CONSTRUCTION AREA MANAGER, WAS ENCOURAGED TO DISCUSS WITH THE PT THE NEED FOR THE SITTER AND POTENTIAL MEDICATION. DR. AVILA WAS CONTACTED. MADE PROVIDER AWARE OF THE SI ASSESSMENT DETERMININATION AND COMMENTS MADE BY THE PT. ALSO DISCUSSED HOW THE PT WAS THREATENING TO LEAVE AMA IF A SITTER IS NECESSARY. ASKED PROVIDER IF HE OR ANOTHER PROVIDER COULD COME AND SEE THE PATIENT TO DETERMINE IF A 2MD HOLD IS NECESSARY AT THIS TIME OR TO ASSESS. PROVIDER STATED "I WILL COME AND SEE THE PATIENT LATER." PT ALSO STATED "I USED STARVATION AND ONLY AT 250 CALORIES. IF I DID ANYTHING IMMEDIATE THEN MY GRANDAUGHTER WOULD NOT RECEIVE ANYTHING." PER PROVIDER, ADVISED TO ASK THE PT IF ANYTHING FOR ANXIETY WILL HELP AT THIS TIME. AND NOTIFY THE PROVIDER WITH THE RESULT OF THE DISCUSSION. THIS RN THEN WENT TO DISCUSS THIS WITH THE PATIENT. DURING DISCUSSION WITH THE PATIENT THE PROVIDER CAME TO THE FLOOR. PROVIDER IN THE ROOM AT 0152 TO ASSESS THE PATIENT. AFTER DISCUSSION WITH THE PATIENT, PROVIDER WROTE ORDER FOR FENTANYL 25-50 MCG IV Q4 PRN AND TORADOL 15 MG IV Q8 PRN LIMITED DOSES. AFTER DISCUSSION WITH THE PATIENT, FENTANYL WAS REMOVED FROM ALLERGY LIST. PT REPORTS THAT SHE DID NOT HAVE AN ALLERGY TO THE MEDICATION. THIS RN CLARIFIED WITH THE PROVIDER RESUSITATION STATUS. PER PT REQUEST, PT REQUESTS TO BE A DNR. PROVIDER AGREED, ORDER OBTAINED. DISCUSSED WITH PROVIDER THE NEED FOR A SITTER AND CHANGING ROOMS, PROVIDER STATES "SHE CAN KEEP HER PHONE." THIS RN THEN ASKED THE PATIENT IF THEY WILL BE WILLING TO STAY AT THIS FACILITY WITH A SITTER. PT AGREED. PT NOTIFIED THAT THEY WILL NEED TO HAVE A ROOM CHANGE TO FOLLOW PROTOCOL AND THAT A SITTER WILL BE PRESENT.
--- NOTE | 2022-07-25 02:15 | NUR ---
PATIENT STATEMENTS WHEN I AND SPENSER THE AUXILIARY OPERATOR WENT INTO THE PATIENT'S ROOM TO HELP HER CHANGE INTO PAPER SCRUBS AND START MOVING HER BELONGINGS INTO THE SI APPROVED ROOM, THE PATIENT STATED THAT SHE WOULD NOT ALLOW ME TO MOVE HER BELONGINGS AND THAT SHE WOULD NOT CHANGE INTO THE PAPER SCRUBS. SHE THEN STATED THAT SHE "MAY OR MAY NOT HAVE SUBSTANCES IN MY BELONGINGS THAT I COULD TAKE AND HURT MYSELF". THE PATIENT ALSO SPOKE ABOUT HER EXPERIENCE OF WANTING AND TRYING TO ATTEMPT SUICIDE MULTIPLE TIMES BY PUTTING A GUN IN HER MOUTH AND PULLING THE TRIGGER. SECURITY WAS THEN CALLED D/T THE PATIENT BEING UNWILLING TO HAVE HER BELONGINGS REMOVED. THE NURING PACKAGE DYEING MACHINE OPERATOR AND SECURITY THEN SHOWED UP.
[2022-07-25 02:24] VITALS: BP 182/88
[2022-07-25 04:26] LABS: BASOPHILS ABSOLUTE AUTO 0.07 K/mm3 (0.00-0.23); BASOPHILS PERCENT AUTO 0 % (0-2); EOSINOPHILS ABSOLUTE AUTO 0.15 K/mm3 (0.00-0.68); EOSINOPHILS PERCENT AUTO 1 % (0-6); Hematocrit 30.7 % (33.0-51.0); Hemoglobin 9.9 g/dL (11.5-16.0); IMMATURE GRAN ABSOLUTE AUTO 0.11 K/mm3 (0.00-0.10); IMMATURE GRAN PERCENT AUTO 1 % (0-1); LYMPHOCYTES ABSOLUTE AUTO 1.81 K/mm3 (0.84-5.20); LYMPHOCYTES PERCENT AUTO 10 % (21-46); MONOCYTES ABSOLUTE AUTO 1.41 K/mm3 (0.16-1.47); MONOCYTES PERCENT AUTO 8 % (4-13); Mean Corpuscular HGB 29.3 pg (26.0-34.0); Mean Corpuscular HGB Conc 32.2 g/dL (31.5-36.5); Mean Corpuscular Volume 91 fL (80-100); Mean Platelet Volume 9.6 fL (9.1-12.4); NEUTROPHILS ABSOLUTE AUTO 14.35 K/mm3 (1.96-9.15); NEUTROPHILS PERCENT AUTO 80 % (41-73); Platelet Count 467 K/mm3 (150-400); RDW Coefficient Variation 14.6 % (11.7-14.2); Red Blood Cell Count 3.38 M/mm3 (3.80-5.20)
[2022-07-25 05:03] LABS: Albumin, Blood 2.6 g/dL (3.4-5.0); Albumin/Globulin Ratio 0.5 (0.8-1.8); Bilirubin, Total 0.6 mg/dL (0.1-1.0); Bun/Creatinine Ratio 29.9 (12.0-20.0); Calcium, Blood 8.8 mg/dL (8.5-10.1); Creatinine, Blood 0.67 mg/dL (0.40-1.00); Globulin, Blood 5.2 g/dL (2.2-4.0); Potassium, Blood 3.7 mmol/L (3.5-5.5); Total Protein, Blood 7.8 g/dL (6.4-8.2)
[2022-07-25 07:40] VITALS: BP 154/76
--- NOTE | 2022-07-25 11:18 | NUR ---
Upon receiving a referral for spiritual care, I visited the patient. The patient talks at length and shares his thoughts about leaving AMA, his feelings of hopelessness and his determination to not have a below the knee amputation. I provide therapeutic listening, explore sources of hope and value and reinforce the expressed ideas from the patient about decision making that would lead to his health and recovery. Patient appeared to have some moments of breakthrough and also a few steps back. I will continue to remain available.
--- NOTE | 2022-07-25 11:26 | NUR ---
Upon receiving a referral for spiritual care, I visited the patient. He is very pleasant and talks highly of the medical staff. He shares about his family health needs, his personal/spiritual concerns and his medical goals. He also explains about his family, his years in the , and his long career as a bilingual counter sales retail. He tells me about the importance of movement in life, with ones body and ones mind. Therapeutic alliance is established, empathic listening, prayer and normalizing his experience is provided with a good result. Patient appears moved by the prayer and conversation and voices gratitude. I will continue to remain available to patient and family.
--- NOTE | 2022-07-25 15:04 | NUR ---
DR. SILVA CAME IN AT BEDSIDE AND UNWRAPPED PATIENTS DRESSING ON HER RIGHT FOOT. DR. SILVA WASHED OUT THE PATIENTS WOUND WITH STARILE WATER, THEN REPACKED THE WOUND WITH 1 INCH. IDOFOAM AND GAUZE ON TOP WITH KERLEX AND ZACH WRAP. DRESSING IS C/D/I. DR. SILVA SAID PATIENT COULD EAT AND WOULD WATCH THE PATIENTS LABS WELL GET WOUND CARE NURSE ON BOARD WITH CARE. PATIENT WAS AGREEABLE TO PLAN. HE IS LAYING IN BED WITH CALL LIGHT IN REACH. SITTER IS AT BEDSIDE.
--- NOTE | 2022-07-25 15:41 | NUR ---
SHIFT SUMMARY: RIGHT FOOT INFECTION PATIENT IS A&OX4. VS ARE WNL AND IS ON RA. PATIENTS PAIN HAS BEEN MANAGED WITH IV FENTANYL DUE TO HER BEING NPO MAJORITY OF THE SHIFT AWAITING FOR IF SHE WAS GOING TO HAVE SURGERY OR NOT. PATIENT IS NOW ON A ADA DIET AND IS TOLERATING PO INTAKE. DR. SILVA CLEANED AND CHANGED HER DRESSING ON THE RIGHT FOOT WHICH IS STILL C/D/I (SEE PRIOR NURSE NOTE FOR MORE DETAIL). PATIENT WAS ABLE TO TRANSFER FROM BED TO HER PERSONAL WHEELCHAIR WITH MINIMAL HELP AND WAS ABLE TO WHEELCHAIR HERSELF TO THE BATHROOM AND [facility] AND THEN BACK TO BED. PATIENT HAS SI PRECAUTIONS STILL IN PLACE SO SHE HAS THE SHORTENED CALL LIGHT THAT IS STILL WITHIN REACH. PATIENT CALLS APPROPRIATELY. DR. HOLGUIN CAME BY BUT WILL BE BACK AROUND 1600 TO RE-EVALUATE PATIENT IF HE NEEDS TO BE ON SI PRECAUTIONS STILL OR NOT. THIS NURSE NOTIFIED DR. HOLGUIN THAT THROUGHOUT THE DAY THE PATIENT SAYS COMMENTS LIKE "I WOULD RATHER BEING ON FIRE..THAT WOULD BE MORE COMFORTABLE WAY TO THAN THIS" AND TRY TO MAKE IT A JOKE AND LAUGHS IT OFF. DR. HOLGUIN STATED "THE PATIENT SAID THAT TODAY?! ALRIGHT I'LL BE BACK LATER THIS AFTERNOON TO RE-EVALUATE". PATIENT IS CURRENTLY ASLEEP WITH EVEN/EQUAL RESP. AND SHORTENED CALL LIGHT IN REACH.
--- NOTE | 2022-07-25 15:57 | NUR ---
DR. HOLGUIN IS IN THE ROOM AGAIN.
--- NOTE | 2022-07-25 16:27 | NUR ---
AFTER DR. HOLGUIN LEFT THE PATIENTS ROOM. PATIENT BECAME SLIGHTLY MORE IRRITATED AND STATED "WELL HE IS GOING TO PUT ME ON THE MEDICATIONS THAT MAKE ME ALL SLEEPY...NOW I DON'T FEEL SAFE AND WILL WANT TO STAY AWAKE ALL NIGHT AND DAY". THIS NURSE EDUCATED PATIENT ABOUT SAFETY FOR WHILE SHE IS HERE AND ALSO FOR WHEN SHE WILL EVENTUALLY GET DISCHARGED THAT SHE WON'T FOLLOW THROUGH WITH HER COMMENTS ABOUT DOING SELF HARM. PATIENT ROLLED HER EYES AND THEN WENT BACK ON HER PHONE SAYING "I DON'T NEED ANYTHING ANYMORE". PATIENT HAS CALL LIGHT IN REACH LAYING IN BED. DR. HOLGUIN SAID HE WOULD CONTINUE TO HAVE A SITTER AT LEAST OVER THE WEEKEND TO BE SAFE.
--- NOTE | 2022-07-25 17:41 | NUR ---
PATIENT REQUESTED TO HAVE THIS CONVERSATION DOCUMENTED: PATIENT CALLED THIS NURSE INTO THE ROOM AND ASKED IF SHE COULD HAVE HER LONG ACTING INSULIN DOSE BEFORE EATING HER DINNER. THIS NURSE EXPLAINED TO PATIENT THAT PER PROTOCOL INSUILIN IN GENERAL IS GIVEN AFTER MEALS SINCE IT DEPENDS ON HOW MUCH OF FOOD IS EATEN AND WHAT THEIR BLOOD SUGAR IS AFTERWARDS. IN ADDITION, EXPLAINED TO PATIENT HER BLOOD SUGAR WAS 89 BEFORE THE MEAL AND IF SHE DIDN'T EAT A LOT OF HER DINNER IT COULD MAKE IT TOO LOW. PATIENT AFTER THE EXPLANATION STATED "I JUST WANT YOU TO DOCUMENT THAT I ASKED FOR MY INSULIN AND YOU SAID NO...SO IF MY BLOOD SUGAR IS TOO HIGH AFTER THIS MEAL I WANT EVERYONE TO KNOW THAT I DID ASK FOR MY INSULIN".
[2022-07-25 20:34] VITALS: BP 149/84
--- NOTE | 2022-07-26 05:08 | NUR ---
SHIFT SUMMARY PT RESTING WELL THIS AM. AAOX4/ANXIOUS/FLIGHT OF IDEAS. DISCOMFORT CONTROLLED WITH X1 50MCG FENTANYL IV. NO NAUSEA/EMESIS. DRESSING TO RIGHT FOOT WITH GAUZE AND ZACH WRAP C/D/I. PT UP TO WHEELCHAIR WITH SLIDER BLOARD DURAN. UPON PM SHIFT CHANGE ON 07/25 PT WAS ADIMENT ABOUT REFUSING THE NEW MEDICATION ORDERED BY MEGAN; AFTER MUCH TIME LATER IN THE EVENING SHE AGREED TO TAKE IT. CHEMBG AC+HS WITH COVERAGE DURING AC AND LONG ACTING INSULIN BID, LAST HS BLOOD SUGAR 260. NO ACUTE CHANGES OVER NIGHT. PT RESTING WELL THIS AM WITH 1 TO 1 SITTER AT BEDSIDE T/O NIGHT. SI PRECAUTIONS IN PLACE. SHORT CORDED CALL LIGHT IN REACH.
[2022-07-26 05:14] VITALS: BP 134/76
[2022-07-26 07:23] VITALS: BP 142/77
[2022-07-26] MEDS ORDERED: HUMALOG JU100 UNIT/2 SC ×2 (08:43)
[2022-07-26 09:24] LABS: BASOPHILS ABSOLUTE AUTO 0.07 K/mm3 (0.00-0.23); BASOPHILS PERCENT AUTO 1 % (0-2); EOSINOPHILS ABSOLUTE AUTO 0.52 K/mm3 (0.00-0.68); EOSINOPHILS PERCENT AUTO 5 % (0-6); Hematocrit 31.4 % (33.0-51.0); Hemoglobin 9.8 g/dL (11.5-16.0); IMMATURE GRAN ABSOLUTE AUTO 0.03 K/mm3 (0.00-0.10); IMMATURE GRAN PERCENT AUTO 0 % (0-1); LYMPHOCYTES ABSOLUTE AUTO 1.64 K/mm3 (0.84-5.20); LYMPHOCYTES PERCENT AUTO 16 % (21-46); MONOCYTES ABSOLUTE AUTO 0.73 K/mm3 (0.16-1.47); MONOCYTES PERCENT AUTO 7 % (4-13); Mean Corpuscular HGB 28.7 pg (26.0-34.0); Mean Corpuscular HGB Conc 31.2 g/dL (31.5-36.5); Mean Corpuscular Volume 92 fL (80-100); Mean Platelet Volume 9.2 fL (9.1-12.4); NEUTROPHILS ABSOLUTE AUTO 7.55 K/mm3 (1.96-9.15); NEUTROPHILS PERCENT AUTO 72 % (41-73); Platelet Count 456 K/mm3 (150-400); RDW Coefficient Variation 14.6 % (11.7-14.2); RDW Standard Deviation 49.6 fL (35.1-46.3); Red Blood Cell Count 3.41 M/mm3 (3.80-5.20); White Blood Cell Count 10.54 K/mm3 (4.00-11.30)
[2022-07-26 14:09] VITALS: BP 137/71
[2022-07-26 14:16] LABS: Creatinine, Blood 0.65 mg/dL (0.40-1.00); Vancomycin, Trough 15.3 ug/mL (5.0-10.0)
--- NOTE | 2022-07-26 18:30 | NUR ---
SHIFT SUMMARY NO ACUTE CHANGES THIS SHIFT. DRESSING TO R FOOT IS C/D/I, CAP REFIL WNL. PAIN MANAGED WELL PER EMAR. PATIENT EATING, DRINKING, & VOIDING WELL. IV ABX PER EMAR. CBG'S & INSULIN PER ORDERS. PATIENT DENIES ANY SUICIDAL THOUGHTS OR IDEATIONS T/O THIS SHIFT. VERY PLEASANT AND COOPERATIVE WITH STAFF. 1:[address] WILL REPORT TO AIDE PERKINS AT 1900.
[2022-07-26 19:32] VITALS: BP 129/70
[2022-07-27 04:34] VITALS: BP 134/74
[2022-07-27 07:35] VITALS: BP 141/83
--- NOTE | 2022-07-27 08:29 | NUR ---
SUMMARY PT DENIES SI. SLEPT MOST OF NIGHT.
--- NOTE | 2022-07-27 08:30 | NUR ---
DR SILVA AT BEDSIDE REMOVED CURRENT DRESSING, IRRIGATED W/ STERILE WATER, RE-PACKED AND APPLIED GAUZE & ZACH WRAP DRESSING. MD GAVE VERBAL ORDERS TO CHANGE DRESSING DAILY, PATIENT CAN BE HEAL-TOUCH TO E FOR TRANSFERS. PLAN FOR PATIENT TO REMAIN INPATIENT FOR ATLEAST 2 MORE DAYS FOR IV ABX & SUPERVISION FOR WOUND/DRESSING. DR SILVA TO RE-ASSESS PATIENT ON THURSDAY.
[2022-07-27 09:44] LABS: BASOPHILS ABSOLUTE AUTO 0.05 K/mm3 (0.00-0.23); BASOPHILS PERCENT AUTO 1 % (0-2); EOSINOPHILS ABSOLUTE AUTO 0.66 K/mm3 (0.00-0.68); EOSINOPHILS PERCENT AUTO 6 % (0-6); Hematocrit 28.8 % (33.0-51.0); Hemoglobin 9.4 g/dL (11.5-16.0); IMMATURE GRAN ABSOLUTE AUTO 0.04 K/mm3 (0.00-0.10); IMMATURE GRAN PERCENT AUTO 0 % (0-1); LYMPHOCYTES PERCENT AUTO 19 % (21-46); MONOCYTES ABSOLUTE AUTO 0.59 K/mm3 (0.16-1.47); MONOCYTES PERCENT AUTO 6 % (4-13); Mean Corpuscular HGB 29.7 pg (26.0-34.0); Mean Corpuscular HGB Conc 32.6 g/dL (31.5-36.5); Mean Corpuscular Volume 91 fL (80-100); Mean Platelet Volume 9.4 fL (9.1-12.4); NEUTROPHILS PERCENT AUTO 68 % (41-73); Platelet Count 454 K/mm3 (150-400); RDW Coefficient Variation 14.4 % (11.7-14.2); RDW Standard Deviation 48.4 fL (35.1-46.3); Red Blood Cell Count 3.17 M/mm3 (3.80-5.20); White Blood Cell Count 10.44 K/mm3 (4.00-11.30)
[2022-07-27 16:14] VITALS: BP 149/76
--- NOTE | 2022-07-27 18:37 | NUR ---
SHIFT SUMMARY NO ACUTE CHANGES THIS SHIFT. DR SILVA CHANGED DRESSING TO R FOOT, SEE NOTE. DRESSING REMAINS C/D/I. PATIENT SLEPT ON & OFF T/O SHOFT, PAIN MANAGED PER EMAR. EATING, DRINKING, & VOIDING WELL. CBG'S & INSULIN PER ORDERS. PATIENT DENIES AND SI THOUGHTS/IDEAS THIS SHIFT. 1:[address] GUZMAN'S NOTE. PATIENT IS PLEASANT & COPPERATIVE. WILL REPORT TO ONCOMING RN AT 1900.
[2022-07-27 19:43] VITALS: BP 141/78
[2022-07-28 02:22] LABS: Vancomycin, Trough 17.3 ug/mL (5.0-10.0)
[2022-07-28 04:36] VITALS: BP 144/75
[2022-07-28 07:11] VITALS: BP 141/80
--- NOTE | 2022-07-28 07:59 | NUR ---
summary pt more withdrawn tonight. cont cooperative and denies si,voiding, but appears spills urinal,pt accepting help with urinal and linene changed x2,pt with red/yeast like rash to buttoks and low back. notified dr lara this am.offering pt assistance with urinal frequently.
[2022-07-28 09:05] LABS: BASOPHILS ABSOLUTE AUTO 0.06 K/mm3 (0.00-0.23); BASOPHILS PERCENT AUTO 1 % (0-2); EOSINOPHILS ABSOLUTE AUTO 0.73 K/mm3 (0.00-0.68); EOSINOPHILS PERCENT AUTO 6 % (0-6); IMMATURE GRAN ABSOLUTE AUTO 0.04 K/mm3 (0.00-0.10); IMMATURE GRAN PERCENT AUTO 0 % (0-1); LYMPHOCYTES ABSOLUTE AUTO 2.08 K/mm3 (0.84-5.20); LYMPHOCYTES PERCENT AUTO 16 % (21-46); MONOCYTES ABSOLUTE AUTO 0.69 K/mm3 (0.16-1.47); MONOCYTES PERCENT AUTO 5 % (4-13); Mean Corpuscular HGB 28.8 pg (26.0-34.0); Mean Corpuscular HGB Conc 31.3 g/dL (31.5-36.5); Mean Corpuscular Volume 92 fL (80-100); Mean Platelet Volume 9.4 fL (9.1-12.4); NEUTROPHILS ABSOLUTE AUTO 9.63 K/mm3 (1.96-9.15); NEUTROPHILS PERCENT AUTO 73 % (41-73); Platelet Count 549 K/mm3 (150-400); RDW Coefficient Variation 14.5 % (11.7-14.2); RDW Standard Deviation 49.1 fL (35.1-46.3); Red Blood Cell Count 3.47 M/mm3 (3.80-5.20); White Blood Cell Count 13.23 K/mm3 (4.00-11.30)
--- NOTE | 2022-07-28 10:35 | NUR ---
MORNING NOTE PT AOX4. VSS. 1:1 SITTER AT BEDSIDE D/T TO HX OF SI, DENIES SI AT THIS TIME. S/P I/D OF R FOOT. SLIGHT REDNESS & SWELLING ASSESSED AROUND R ANKLE. GAUZE & ZACH WRAP DRESSING C/D/I. DAILY DRESSING CHANGE WILL BE PERFORMED THIS SHIFT. MEDICATED PER EMAR FOR PAIN 09/01, REPORTS THAT PAIN TOLERABLE AT THIS TIME. UP W/ SBA, USES PROSTHESIS & WC AT BASELINE. RCVD IN REPORT OF URINARY INCONT EPISODES, NO EPISODES THIS MORNING. USES URINAL. ATTENDS IN PLACE. RED, DRY EXCORIATED SKIN EXTENDING FROM GROIN/BUTTOCKS TO LOWER BACK, R/T TO URINARY INCONTINENCE. RCVD ORDER FOR MANAGEMENT, APPLIED PER EMAR. NO OTHER NEEDS AT THIS TIME.
--- NOTE | 2022-07-28 11:21 | NUR ---
DR URRUTIAUFF IN TO SEE PT.
--- NOTE | 2022-07-28 13:24 | NUR ---
BRODERICK/ALL SOURCE ANALYST IN TO SEE PT.
[2022-07-28 14:35] VITALS: BP 159/80
--- NOTE | 2022-07-28 16:30 | NUR ---
R FOOT DRESSING CHANGED ORDERED
--- NOTE | 2022-07-28 17:13 | NUR ---
SHIFT SUMMARY NO ACUTE CHANGES THIS SHIFT. VSS. AOX4, CALLS PRN. R FOOT PAIN TOLERABLE W/ ORDERED MEDICATION. 1:1 SITTER DC'D, NO SI REPORTED/ASSESSED. R FOOT DRESSING CHANGED PER ORDER, C/D/I. PLAN IS FOR WOUND VAC TO BE APPLIED TO R FOOT BY WOUND RN. POSSIBLE DC FOLLOWING DEVICE APPLICATION. UP IN RM W/ SBA WC & PROSTHESIS. NO EPISODES OF URINARY INCONTINENCE, USES URINAL. NYSTATIN POWDER APPLIED PER EMAR TO GROIN/BUTTOCKS CURRENTLY EXCORIATED FROM NOC INCONTINENCE. NO NEEDS AT THIS TIME, WILL REPORT TO ONCOMING RN.
--- NOTE | 2022-07-28 18:32 | NUR ---
REVIEWED SN DOCUMENTATION
[2022-07-28 19:23] VITALS: BP 148/74
[2022-07-29 03:55] LABS: BASOPHILS ABSOLUTE AUTO 0.04 K/mm3 (0.00-0.23); BASOPHILS PERCENT AUTO 0 % (0-2); EOSINOPHILS ABSOLUTE AUTO 0.75 K/mm3 (0.00-0.68); EOSINOPHILS PERCENT AUTO 6 % (0-6); Hematocrit 27.7 % (33.0-51.0); Hemoglobin 8.7 g/dL (11.5-16.0); IMMATURE GRAN ABSOLUTE AUTO 0.06 K/mm3 (0.00-0.10); IMMATURE GRAN PERCENT AUTO 1 % (0-1); LYMPHOCYTES ABSOLUTE AUTO 2.61 K/mm3 (0.84-5.20); LYMPHOCYTES PERCENT AUTO 21 % (21-46); MONOCYTES ABSOLUTE AUTO 0.78 K/mm3 (0.16-1.47); MONOCYTES PERCENT AUTO 6 % (4-13); Mean Corpuscular HGB 28.5 pg (26.0-34.0); Mean Corpuscular HGB Conc 31.4 g/dL (31.5-36.5); Mean Corpuscular Volume 91 fL (80-100); Mean Platelet Volume 9.2 fL (9.1-12.4); NEUTROPHILS ABSOLUTE AUTO 8.09 K/mm3 (1.96-9.15); NEUTROPHILS PERCENT AUTO 66 % (41-73); Platelet Count 490 K/mm3 (150-400); RDW Coefficient Variation 14.5 % (11.7-14.2); RDW Standard Deviation 48.9 fL (35.1-46.3); Red Blood Cell Count 3.05 M/mm3 (3.80-5.20); White Blood Cell Count 12.33 K/mm3 (4.00-11.30)
[2022-07-29 04:46] VITALS: BP 140/76
[2022-07-29 07:34] VITALS: BP 143/76
--- NOTE | 2022-07-29 07:46 | NUR ---
summary no acute changes tonight.
[2022-07-29] MEDS ORDERED: MIRT15 PO (14:47)
[2022-07-29] MEDS ORDERED: CIPR500 PO (14:48)
--- NOTE | 2022-07-29 15:07 | NUR ---
Patient is gathering her belongings and talking to herself. I ask patient about what is happening. She explains that her d/c is underway and that she is angry. She believes that she is being let go from the hospital with all her belongings and only a wheelchair for transportation. She voices her frustrations, and although she does not listen well, is calmed by my presence and appears to soften as we talk. I provide supportive listening and distraction to the positives about her foot being in a much better state, the infection being undercontrol and that she is "being released from the [facility]," as she put it. Patient is in a much better frame of mind after we talk. She states that she feels much happier. Her mind moves easily to the negative so hopefully she remains positive through the d/c process.
--- NOTE | 2022-07-29 15:20 | NUR ---
DISCHARGE SUMMARY PT DC HOME FOLLOWING WOUND VAC PLACEMENT ON THE R FOOT PER ORDER AT 1420. PT DEMONSTRATES UNDERSTANDING OF DEVICE & AGREES W/ DC PLAN. VSS. PAIN TOLERABLE W/ PRESCRIBED MEDICATION. VOIDING, MULT BM THIS SHIFT. IND IN RM W/ WC & PROSTHESIS. RETURN TO BASELINE STATUS. EDUCATION PROVIDED, IV RMVD, PERSONAL BELONGINGS ACCOUNTED FOR. [facility] [place] [facility] [place] PT TRANSFERRED TO PERSONAL VEHICLE VIA PERSONAL WC.
== END 2022-07-29 15:22 | disposition home or self-care (01) | DRG 564 ==
LOC: ER 19:17 → SURS 19:18
PROVIDERS: Podiatrist Foot & Ankle Surgery; Student in an Organized Health Care Education/Training Program; ADMIT Internal Medicine
DX: T87.43 Infection of amputation stump, right lower extremity (principal); A41.9 Sepsis, unspecified organism; L03.115 Cellulitis of right lower limb; M86.171 Other acute osteomyelitis, right ankle and foot; R45.851 Suicidal ideations; I50.22 Chronic systolic (congestive) heart failure; I11.0 Hypertensive heart disease with heart failure; E11.69 Type 2 diabetes mellitus with other specified complication; E11.51 Type 2 diabetes mellitus with diabetic peripheral angiopathy without gangrene; E11.40 Type 2 diabetes mellitus with diabetic neuropathy, unspecified; I25.10 Atherosclerotic heart disease of native coronary artery without angina pectoris; Z79.891 Long term (current) use of opiate analgesic; Z98.890 Other specified postprocedural states; Z89.512 Acquired absence of left leg below knee; Z88.8 Allergy status to other drugs, medicaments and biological substances; Z89.421 Acquired absence of other right toe(s); Z79.4 Long term (current) use of insulin; Z79.899 Other long term (current) drug therapy
CPT/HCPCS: 36415; 73630; 80053; 80202; 82565; 82947; 83605; 83880; 85025; 99284-25; A9270; J1815; J1885; J2543; J3010; J3370; J7030; J7042; J7050

== ENCOUNTER → 2022-12-25 | Outpatient (CLI) | payer MEDICARE ==
[~2022-12-25] MED LIST changes: +CIPR500 PO
== END ==
LOC: LAB SHORT 15:16 → LAB 15:16
DX: L02.611 Cutaneous abscess of right foot (principal); E11.621 Type 2 diabetes mellitus with foot ulcer
CPT/HCPCS: 87070; 87075; 87077; 87147; 87186; 87205

== ENCOUNTER → 2023-01-26 | Outpatient (CLI) | payer MEDICARE | END | disposition home or self-care (01) | LOC: LAB SHORT 08:11 → LAB 08:11 | DX: E11.621 Type 2 diabetes mellitus with foot ulcer (principal); L97.509 Non-pressure chronic ulcer of other part of unspecified foot with unspecified severity; E11.52 Type 2 diabetes mellitus with diabetic peripheral angiopathy with gangrene; E11.42 Type 2 diabetes mellitus with diabetic polyneuropathy; E11.69 Type 2 diabetes mellitus with other specified complication; M86.171 Other acute osteomyelitis, right ankle and foot; L02.611 Cutaneous abscess of right foot | CPT/HCPCS: 88305; 88311 ==

== ENCOUNTER 2023-02-23 03:38 | Inpatient (IN) | payer MEDICARE ==
[~2023-02-23] VITALS: Ht 180.3 cm; Wt 96.4 kg
[~2023-02-23 03:38] MED LIST changes: -INSULANI SC; +SEMGLEE (Y100 UNIT/2 SC
[2023-02-23 05:11] LABS: BASOPHILS ABSOLUTE AUTO 0.07 K/mm3 (0.00-0.23); BASOPHILS PERCENT AUTO 1 % (0-2); EOSINOPHILS PERCENT AUTO 1 % (0-6); Hematocrit 47.8 % (33.0-51.0); Hemoglobin 15.9 g/dL (11.5-16.0); IMMATURE GRAN ABSOLUTE AUTO 0.02 K/mm3 (0.00-0.10); IMMATURE GRAN PERCENT AUTO 0 % (0-1); LYMPHOCYTES ABSOLUTE AUTO 1.48 K/mm3 (0.84-5.20); LYMPHOCYTES PERCENT AUTO 18 % (21-46); MONOCYTES ABSOLUTE AUTO 0.79 K/mm3 (0.16-1.47); MONOCYTES PERCENT AUTO 9 % (4-13); Mean Corpuscular HGB 30.1 pg (26.0-34.0); Mean Corpuscular HGB Conc 33.3 g/dL (31.5-36.5); Mean Corpuscular Volume 91 fL (80-100); Mean Platelet Volume 11.2 fL (9.1-12.4); NEUTROPHILS ABSOLUTE AUTO 5.96 K/mm3 (1.96-9.15); NEUTROPHILS PERCENT AUTO 71 % (41-73); Platelet Count 365 K/mm3 (150-400); RDW Coefficient Variation 14.6 % (11.7-14.2); RDW Standard Deviation 48.1 fL (35.1-46.3); Red Blood Cell Count 5.28 M/mm3 (3.80-5.20); White Blood Cell Count 8.42 K/mm3 (4.00-11.30)
[2023-02-23 05:35] LABS: Albumin, Blood 3.1 g/dL (3.4-5.0); Albumin/Globulin Ratio 0.7 (0.8-1.8); Bilirubin, Total 0.8 mg/dL (0.1-1.0); Calcium, Blood 8.7 mg/dL (8.5-10.1); Creatinine, Blood 0.85 mg/dL (0.40-1.00); Globulin, Blood 4.4 g/dL (2.2-4.0); Potassium, Blood 4.1 mmol/L (3.5-5.5); Total Protein, Blood 7.5 g/dL (6.4-8.2)
[2023-02-23 08:43] LABS: Magnesium, Blood 1.7 mg/dL (1.6-2.4)
[2023-02-23 10:42] LABS: Thyroid Stimulating Hormone 4.11 uIU/mL (0.360-4.800)
[2023-02-23 13:34] VITALS: BP 142/130
--- NOTE | 2023-02-23 17:31 | NUR ---
SHIFT SUMMARY PT A&OX4, HYPERTENSIVE, MEDICATED PER EMAR, ON RA AND TELE W/ NO EVENTS, AMB W/ LLE PROSTHETIC AND CANE AT BASELINE DUE TO LBKA AND R FOOT 2 TOE AMPUTATION, IS TOLERATING PO, VOIDING/USING A URINAL, AND PAIN MANAGED PER EMAR. CALL LIGHT WITHIN REACH AND PT ABLE TO MAKE NEEDS KNOWN.
[2023-02-23 19:31] VITALS: BP 130/68
[2023-02-24 03:33] VITALS: BP 132/81
[2023-02-24 05:00] LABS: BASOPHILS ABSOLUTE AUTO 0.05 K/mm3 (0.00-0.23); BASOPHILS PERCENT AUTO 1 % (0-2); EOSINOPHILS ABSOLUTE AUTO 0.47 K/mm3 (0.00-0.68); EOSINOPHILS PERCENT AUTO 6 % (0-6); Hematocrit 40.8 % (33.0-51.0); Hemoglobin 13.5 g/dL (11.5-16.0); IMMATURE GRAN ABSOLUTE AUTO 0.02 K/mm3 (0.00-0.10); IMMATURE GRAN PERCENT AUTO 0 % (0-1); LYMPHOCYTES ABSOLUTE AUTO 2.39 K/mm3 (0.84-5.20); LYMPHOCYTES PERCENT AUTO 29 % (21-46); MONOCYTES ABSOLUTE AUTO 1.03 K/mm3 (0.16-1.47); MONOCYTES PERCENT AUTO 12 % (4-13); Mean Corpuscular HGB 29.9 pg (26.0-34.0); Mean Corpuscular HGB Conc 33.1 g/dL (31.5-36.5); Mean Corpuscular Volume 90 fL (80-100); Mean Platelet Volume 10.8 fL (9.1-12.4); NEUTROPHILS ABSOLUTE AUTO 4.41 K/mm3 (1.96-9.15); NEUTROPHILS PERCENT AUTO 53 % (41-73); Platelet Count 328 K/mm3 (150-400); RDW Coefficient Variation 14.7 % (11.7-14.2); RDW Standard Deviation 48.4 fL (35.1-46.3); Red Blood Cell Count 4.52 M/mm3 (3.80-5.20); White Blood Cell Count 8.37 K/mm3 (4.00-11.30)
[2023-02-24 05:48] LABS: Bun/Creatinine Ratio 27.2 (12.0-20.0); Calcium, Blood 8.4 mg/dL (8.5-10.1); Creatinine, Blood 0.85 mg/dL (0.40-1.00); Magnesium, Blood 1.7 mg/dL (1.6-2.4); Phosphorus, Blood 4.2 mg/dL (2.5-4.9); Potassium, Blood 3.5 mmol/L (3.5-5.5)
[2023-02-24 08:00] VITALS: BP 137/96
--- NOTE | 2023-02-24 08:55 | NUR ---
SHIFT SUMMARY PT IS A&OX4, VSS ON RA. NSR @ 75 VIA TELEMETRY. DENIES PAIN. TOLERATING AN ADA DIET, CONSUMING HS SNACKS. 30 UNITS OF GLARGINE GIVEN, BG AT 0500 WAS 59. 1500 ML FLUID RESTRICTION MAINTAINED. RLE DRESSING C/D/I. EDEMA IN HER TESTICLES. USING URINAL INDEPENDENTLY. NO BM THIS SHIFT. NOOB THIS SHIFT. PROSTHETIC FOR L BKA AND WHEELCHAIR IN ROOM. CONTACT PRECAUTIONS MAINTAINED. BED IN LOWEST POSITION, CALL LIGHT WITHIN REACH.
[2023-02-24 16:20] VITALS: BP 152/105
--- NOTE | 2023-02-24 16:59 | NUR ---
SHIFT SUMMARY: PT IS A 57 YEAR OLD MALE TO FEMALE HERE FOR CHF EXACERBATION. SHE IS BEING DIUERESED AND MONITORED. DR. CARR PODIATRY CAME BACK TODAY AND REMOVED SUTURED FROM R FOOT POST 1ST-5TH METATARSAL AMPUTATION. SHE IS AMBULATORY INDEPENDENTLY WITH THE USE OF HER PROSTHETIC AND AMBULATORY AIDS. SHE BATHED HERSELF TODAY AND HAD A REPEAT ECHO. SHE USES HER CALL LIGHT APPROPRIATELY, HASN'T NEEDED HUMALOG INSULIN COVERAGE THE ENTIRE SHIFT, NO EVENTS ON TELEMETRY, AND NO SIGNS OR SYMPTOMS OF DISTRESS. PLAN OF CARE ONGOING.
[2023-02-24 18:06] VITALS: BP 144/91
[2023-02-24 20:24] VITALS: BP 118/67
[2023-02-25 03:32] VITALS: BP 147/96
--- NOTE | 2023-02-25 05:52 | NUR ---
SHIFT SUMMARY PT IS A&OX4, PLEASANT AND COOPERATIVE WITH CARES. VSS, ELEVATED BP, ON RA. NSR WITH BBB WITH OCCATIONAL PVC AND PAC @ 69 PER TELEMETRY. DENIES PAIN. PT IS DROWSY, MORE THAN USUAL. IS INDEPENDENT IN ROOM WITH HER PROSTHETIC ON LLE, AND WHEELCHAIR. TOLERATE ADA DIET, AND IS COMPLIANT WITH 1500 ML FR. VOIDING LARGE AMOUNTS OF LIGHT, CLEAR YELLOW URINE IN URINAL, NO BM THIS SHIFT. DRESSING TO R FOOT, C/D/I. BED IN LOWEST POSITION, CALL LIGHT WITHIN REACH.
[2023-02-25 08:43] LABS: Albumin, Blood 2.4 g/dL (3.4-5.0); Anion Gap 3 mmol/L (6-16); Blood Urea Nitrogen 20 mg/dL (8-24); Bun/Creatinine Ratio 21.3 (12.0-20.0); CO2, Blood 33 mmol/L (21-32); Calcium, Blood 8.7 mg/dL (8.5-10.1); Chloride, Blood 105 mmol/L (98-108); Creatinine, Blood 0.94 mg/dL (0.40-1.00); Glomerular Filtration Rate 71 (60-); Glucose, Blood 65 mg/dL (70-99); Magnesium, Blood 1.8 mg/dL (1.6-2.4); Phosphorus, Blood 4.7 mg/dL (2.5-4.9); Potassium, Blood 3.8 mmol/L (3.5-5.5); Sodium, Blood 141 mmol/L (136-145)
--- NOTE | 2023-02-25 15:03 | NUR ---
TELEMETRY CALLED AND NOTIFIED OF PATIENT HAVING AN EPISODE OF TRIGEMINY. THIS IS NOT A NEW OCURRANCE FOR THE PATIENT WITH ALSO HAVING PVC'S AND PAC'S. PATIENT DENIES CHEST PAIN OR WORSENED SHORTNESS OF BREATH. SHE STATES THAT HER SHORTNESS OF BREATH HAS IMPROVED. DR. SANTAMARIA NOTIFIED.
[2023-02-25 16:25] VITALS: BP 129/99
--- NOTE | 2023-02-25 18:24 | NUR ---
SHIFT SUMMARY: PT IS A 57 YEAR OLD MALE TO FEMALE. SHE IS HERE FOR CHF EXACERBATION AND IS RESPONDING WELL TO DIURETIC TREATMENT. ECHO RESULTS DISCUSSED WITH PATIENT BY THE DOCTOR AND PLAN IS TO HAVE PATIENT BE CONSULTED BY CARDIOLOGY. HER PNEUMONIA HAS RESOLVED, BUT PATIENT CONTINUES TO HAVE A COUGH AND STATES THAT IT PRODUCTIVE, BUT LITTLE TO NO SPUTUM PRESENT. SHE IS AMBUATORY WITH THE USE OF HER PROSTETHIC AND USED A WHEELCHAIR. SHE USES HER CALL LIGHT APPROPRIATELY, IS PLEASANT AND COOPERATIVE WITH CARE, AND NO SHOWING SIGNS OR SYMPTOMS OF DISTRESS. SHE IS IN HER BED EATING DINNER, CALL LIGHT WITHIN REACH. PLAN OF CARE ONGOING.
[2023-02-25 19:12] VITALS: BP 127/82
[2023-02-26 03:30] VITALS: BP 128/73
--- NOTE | 2023-02-26 06:48 | NUR ---
PATIENT IS ALERT AND PRIENTED X4, VITAL SIGNS TAKEN AND RECORDED. ON CONTACT PRECAUTION DUE TO MRSA (WOUNDS). ON BLOOD SUGAR CHECK ACHS, WITH IV LINE ON RIGHT FA. COMPLAINT OF HEADACHE, GIVEN TYLENOL LAST NIGHT.NEEDS ATTENDED. CALL LIGHT WITHIN PATIENT'S REACH. WILL CONTINUE TO MONITOR
[2023-02-26 07:36] VITALS: BP 161/104
[2023-02-26 09:09] LABS: Albumin, Blood 2.5 g/dL (3.4-5.0); Anion Gap 3 mmol/L (6-16); Blood Urea Nitrogen 27 mg/dL (8-24); CO2, Blood 36 mmol/L (21-32); Calcium, Blood 9.1 mg/dL (8.5-10.1); Chloride, Blood 101 mmol/L (98-108); Creatinine, Blood 1.04 mg/dL (0.40-1.00); Glomerular Filtration Rate 63 (60-); Glucose, Blood 278 mg/dL (70-99); Magnesium, Blood 1.9 mg/dL (1.6-2.4); Phosphorus, Blood 5.2 mg/dL (2.5-4.9); Potassium, Blood 3.9 mmol/L (3.5-5.5); Sodium, Blood 140 mmol/L (136-145)
[2023-02-26 15:53] VITALS: BP 129/78
--- NOTE | 2023-02-26 16:01 | NUR ---
Patient is sitting on his/her wheelchair and staring out the door. He/she immediately engages in conversation and talks about his/her family unit complications, his/her trip up to [place] to see his/her grandchildren and his/her medical problems. Patient states that he/she is very troubled by hte "15% capacity of his/her heart." Patient says that he/she is ready to but not quite yet. Pt has some financial and family issues to handle. Pt is not without hope for living a while longer. He/she talks about the bordom of being in the hospital and wonders how long he/she will be able to cope with staying in the room. I normalized his/her experience and provided therapeutic listening and a calming presence. Patient responded well and showed signs of and elevated mood.
--- NOTE | 2023-02-26 17:42 | NUR ---
SHIFT SUMMARY PT IN W/C AND ALSO WALKING IN HALLWAY SHORT DISTANCES. BATHED HIMSELF. DRESSING TO RLE INTACT. PT REPORTS DR. CARR CAME IN YESTERDAY AND REMOVED SUTURES. TELE REPORTED ST CHANGES ON TELE AFTER SHOWER. SPOKE WITH MD AND EKG WAS COMPLETED. PT WITH NO CHEST PAIN OR UNUSUAL SHORTNESS OF BREATH WITH SAID CHANGES.
[2023-02-26 20:34] VITALS: BP 146/98
[2023-02-27 05:48] VITALS: BP 148/93
[2023-02-27 06:06] LABS: Albumin, Blood 2.6 g/dL (3.4-5.0); Anion Gap 6 mmol/L (6-16); Blood Urea Nitrogen 32 mg/dL (8-24); Bun/Creatinine Ratio 34.7 (12.0-20.0); CO2, Blood 30 mmol/L (21-32); Calcium, Blood 9.3 mg/dL (8.5-10.1); Chloride, Blood 103 mmol/L (98-108); Cholesterol 110 mg/dL (50-200); Creatinine, Blood 0.92 mg/dL (0.40-1.00); Glomerular Filtration Rate 73 (60-); Glucose, Blood 293 mg/dL (70-99); HDL Cholesterol 37 mg/dL (>39); LDL/HDL RATIO 1.4; Low Density Lipoprotein Chol 52 mg/dL (0-110); Phosphorus, Blood 4.4 mg/dL (2.5-4.9); Potassium, Blood 3.8 mmol/L (3.5-5.5); Sodium, Blood 139 mmol/L (136-145); Triglycerides 103 mg/dL (30-160); Very Low Density Lipoprot Chol 20 mg/dL (6-32)
--- NOTE | 2023-02-27 06:50 | NUR ---
PATIENT IS ALERT AND ORIENTED. ON TELE MONITOR. WITH PIV ON RIGHT FA PATENT AND INTACT. TYLENOL GIVEN FOR HIS HEADACHE LAST NIGHT. NEEDS ATTENDED. CALL LIGHT WITHIN PATIENT'S REACH. WILL CONTINUE TO MONITOR
[2023-02-27 07:55] VITALS: BP 189/109
[2023-02-27 09:03] VITALS: BP 162/104
[2023-02-27 09:43] VITALS: BP 165/100
[2023-02-27 16:37] VITALS: BP 132/89
--- NOTE | 2023-02-27 18:31 | NUR ---
SHIFT SUMMARY- PT ALERT AD ORIENTED, INDEPENDENT IN THE ROOM AND THE HALLS WITH HER PERSONAL WC. PT HAS AC/HS BG TODAY AT LUNCH THERE WAS A MISSUNDERSTANDING AND THE PT RECIEVED A FEW BITES OF HER PASTA AFTER SHE HAD EATEN HER BROCCOLI, SHE WAS SUPPOSED TO BE NPO FOR THE SECOND PART OF HER ONE DAY STRESS TEST. PT WAS MADE NPO AT THAT TIME. PT STATED SHE DID NOT WANT TO TAKE THE INSULIN BECAUSE WTHOUT THE FOOD SHE WOULD GET TOO LOW. (BG 280) PT WAS NPO UNTIL THE STRESS TEST AT 1600, THEN SHE HAD 1/2 A SANDWICH AND CHEESE AND MILK. AT 1730 HER BG WAS 324. MEDICATED WITH SCHEDULED 8 UNITS. STRESS TEST WAS COMPLETED HOWEVER RESULTS ARE NOT YET IN. PT IS SITTING UP IN HER CHAIR, CALL LIGHT IN REACH SHE CALLS APPROPRIATELY, NO CURRENT S&S OF DISTRESS NOTED.
[2023-02-27 19:52] VITALS: BP 112/66
[2023-02-28 03:44] VITALS: BP 117/72
[2023-02-28 05:58] LABS: Bun/Creatinine Ratio 45.6 (12.0-20.0); Calcium, Blood 8.4 mg/dL (8.5-10.1); Creatinine, Blood 0.81 mg/dL (0.40-1.00); Potassium, Blood 3.8 mmol/L (3.5-5.5)
--- NOTE | 2023-02-28 05:58 | NUR ---
SUMMARY- PT HAD NOTED HIGH GLUCOSE. PROVIDER CALLED AND ORDERED A OT DOSE OF HUMALOG. PT WAS GIVEN ORDERED 6 UNITS AND THEIR LONG LASTING DOSE WELL. PT HAD NO OTHER ISSUES NOTED. PT SLEPTWELL. CALL LIGHT IN REACH.
[2023-02-28 07:58] VITALS: BP 145/97
[2023-02-28 08:48] VITALS: BP 150/96
[2023-02-28 16:09] VITALS: BP 137/79
--- NOTE | 2023-02-28 17:47 | NUR ---
PT BG WAS 110 AT 1630. PT NOT C/O FEELING LIKE HER SUGAR IS LOW, SHE APPEARS TIRED AND DRAWN. RECHECK REVEALS BG 116. DINNER TRAYS HAVE NOT YET ARRIVED, PROVIDED THE PT WITH SOME PB AND CRACKERS. CALLED DR NOLEN AND RECIEVED AN ORDER TO HOLD INSULIN THIS EVENING.
--- NOTE | 2023-02-28 17:57 | NUR ---
SHIFT SUMMARY- BG WERE LOWER TODAY. THIS EVENINGS DOSE WAS HELD PER MD D/T LOW BG (PT HAVING LOW BG SYMPTOMS). PT HAS DENIED THE NEED FOR PAIN MEDICATION T/O THE DAY. PT INDEPENDENT TO THE BATHROOM. PT IN BED, CALL LIGHT IN REACH NO S&S OF DISTRESS AT THIS TIME. SHE IS EATING DINNER CURRENTLY. PLAN IS FOR THE PT TO GET A CARDIOLOGY REFERRAL ON DC. PT ON TELE NSR WITH PVC'S IN THE 70'S.
[2023-02-28 21:18] VITALS: BP 118/77
--- NOTE | 2023-03-01 04:34 | NUR ---
SHIFT SUMMARY PT ADMIT FOR MRSA/CHF EXACERBATION. COOPERATIVE WITH CARE. SLEPT MOST OF SECURITY ADVISOR. PLEASANT WHEN WAKEFUL. STATES THEY ARE NOT IN PAIN. SHOWS SOME SIGNS OF CONFUSION WHEN THIS RN WAS EXPLAINING HER MEDICATION BEING GIVEN.
[2023-03-01 04:55] VITALS: BP 131/84
[2023-03-01 06:04] LABS: Calcium, Blood 8.7 mg/dL (8.5-10.1); Creatinine, Blood 1.05 mg/dL (0.40-1.00); Magnesium, Blood 2.2 mg/dL (1.6-2.4); Potassium, Blood 4.2 mmol/L (3.5-5.5)
[2023-03-01 07:20] VITALS: BP 127/88
[2023-03-01 09:53] VITALS: BP 114/75
--- NOTE | 2023-03-01 12:10 | NUR ---
DRESSING CHANGE PERFORMED- PT WORKED WITH THERAPY, PT SCAR ON HER STUMP BROKE OPEN AND WAS BLEEDING, AREA WAS CLEANED AND DRIED AND DRESSING APPLIED. MD PRESENT AT THE TIME OF DRESSING CHANGE. NEW DRESSING FELL OFF IMMEDIATELY. COVERED WOUND WITH HEEL MEPILEX AND PT PLACED HER STUMP SOCK OVER IT. DRESSING TO THE RIGHT FOOT WAS CHANGED WELL AT THIS TIME. REPLACED WITH SIMILAR TYPE DRESSING SUPPLIES. PT DENIED ANY PAIN WITH THE DRESSING CHANGE.
[2023-03-01 15:45] VITALS: BP 116/91
[2023-03-01] MEDS ORDERED: JARDIANCE10 MG PO (15:45)
[2023-03-01] MEDS ORDERED: INSULIN LI100 UNIT/6 SC (15:45)
[2023-03-01] MEDS ORDERED: Lisinopril2.5 MG PO (15:46)
[2023-03-01] MEDS ORDERED: SPIR25 PO (15:46)
[2023-03-01] MEDS ORDERED: METO25ER PO (15:46)
--- NOTE | 2023-03-01 20:10 | NUR ---
DISCHARGE NOTE- PT WAS GIVEN VERBAL AND WRITTEN DISCHAGRE INSTRUCTIONS AND ACKNOWLEDGED UNDERSTANDING OF THEM. IV AND TELE DC'D. PT DECLINED ESCORT AND WENT OUT ON HER OWN IN HER PERSONAL WC.
== END 2023-03-01 18:15 | disposition home or self-care (01) | DRG 264 ==
LOC: ER 03:38 → ERHOLD 09:50 → MEDS 09:50
PROVIDERS: Emergency Medicine; Hospitalist; ADMIT Internal Medicine
PROC: 3E02340 Introduction of Influenza Vaccine into Muscle, Percutaneous Approach (ICD-10-PCS; principal; 2023-02-23)
PROC: 0JBQ0ZZ Excision of Right Foot Subcutaneous Tissue and Fascia, Open Approach (ICD-10-PCS; 2023-02-24)
DX: I11.0 Hypertensive heart disease with heart failure (principal); I50.23 Acute on chronic systolic (congestive) heart failure; T81.32XA Disruption of internal operation (surgical) wound, not elsewhere classified, initial encounter; Z23 Encounter for immunization; Z66 Do not resuscitate; E11.65 Type 2 diabetes mellitus with hyperglycemia; E11.40 Type 2 diabetes mellitus with diabetic neuropathy, unspecified; F32.A Depression, unspecified; G47.00 Insomnia, unspecified; I25.10 Atherosclerotic heart disease of native coronary artery without angina pectoris; Z95.1 Presence of aortocoronary bypass graft; Z79.2 Long term (current) use of antibiotics; Z87.891 Personal history of nicotine dependence; Z88.8 Allergy status to other drugs, medicaments and biological substances; Z79.899 Other long term (current) drug therapy; X58.XXXA Exposure to other specified factors, initial encounter
CPT/HCPCS: 36415; 71046; 78452; 80048; 80053; 80061; 80069; 82947; 83735; 83880; 84100; 84443; 84484; 85025; 93005; 93010; 93017; 96374; 97162; 99285-25; A9270; A9500; C8929; J0280; J0360; J1650; J1815; J1940; J2785; Q9957

== ENCOUNTER 2023-04-13 15:14 | Emergency (ER) | payer MEDICARE ==
[~2023-04-13] VITALS: Ht 177.8 cm; Wt 81.7 kg
[~2023-04-13 15:14] MED LIST changes: +INSULIN LI100 UNIT/6 SC; +Lisinopril2.5 MG PO; +SPIR25 PO
[2023-04-13 15:43] LABS: BASOPHILS ABSOLUTE AUTO 0.07 K/mm3 (0.00-0.23); BASOPHILS PERCENT AUTO 1 % (0-2); EOSINOPHILS ABSOLUTE AUTO 0.12 K/mm3 (0.00-0.68); EOSINOPHILS PERCENT AUTO 2 % (0-6); Hematocrit 46.1 % (33.0-51.0); Hemoglobin 15.6 g/dL (11.5-16.0); IMMATURE GRAN ABSOLUTE AUTO 0.02 K/mm3 (0.00-0.10); IMMATURE GRAN PERCENT AUTO 0 % (0-1); LYMPHOCYTES ABSOLUTE AUTO 1.95 K/mm3 (0.84-5.20); LYMPHOCYTES PERCENT AUTO 26 % (21-46); MONOCYTES ABSOLUTE AUTO 0.81 K/mm3 (0.16-1.47); MONOCYTES PERCENT AUTO 11 % (4-13); Mean Corpuscular HGB 29.7 pg (26.0-34.0); Mean Corpuscular HGB Conc 33.8 g/dL (31.5-36.5); Mean Corpuscular Volume 88 fL (80-100); Mean Platelet Volume 11.5 fL (9.1-12.4); NEUTROPHILS PERCENT AUTO 61 % (41-73); Platelet Count 304 K/mm3 (150-400); RDW Standard Deviation 47.8 fL (35.1-46.3); Red Blood Cell Count 5.26 M/mm3 (3.80-5.20); White Blood Cell Count 7.57 K/mm3 (4.00-11.30)
[2023-04-13 16:01] LABS: Albumin, Blood 3.1 g/dL (3.4-5.0); Albumin/Globulin Ratio 0.7 (0.8-1.8); Bilirubin, Total 0.7 mg/dL (0.1-1.0); Bun/Creatinine Ratio 28.5 (12.0-20.0); Calcium, Blood 9.1 mg/dL (8.5-10.1); Creatinine, Blood 0.74 mg/dL (0.40-1.00); Globulin, Blood 4.2 g/dL (2.2-4.0); Potassium, Blood 3.7 mmol/L (3.5-5.5); Total Protein, Blood 7.3 g/dL (6.4-8.2)
[2023-04-13 18:06] LABS: Influenza A, PCR NEGATIVE (NEGATIVE); Influenza B, PCR NEGATIVE (NEGATIVE); Resp Syncytial Virus, PCR NEGATIVE (NEGATIVE); SARS-Cov-2 (COVID-19) PCR, MMC NEGATIVE (NEGATIVE)
[2023-04-13 19:30] VITALS: BP 149/88
== END 2023-04-13 19:30 | disposition home or self-care (01) ==
LOC: ER 15:14
PROVIDERS: Student in an Organized Health Care Education/Training Program
DX: J20.9 Acute bronchitis, unspecified (principal); Z87.891 Personal history of nicotine dependence; I11.0 Hypertensive heart disease with heart failure; I50.9 Heart failure, unspecified; E11.40 Type 2 diabetes mellitus with diabetic neuropathy, unspecified; M86.9 Osteomyelitis, unspecified; I25.10 Atherosclerotic heart disease of native coronary artery without angina pectoris; I73.9 Peripheral vascular disease, unspecified; Z79.4 Long term (current) use of insulin; Z79.84 Long term (current) use of oral hypoglycemic drugs; Z79.899 Other long term (current) drug therapy; Z88.8 Allergy status to other drugs, medicaments and biological substances
CPT/HCPCS: 0241U; 71046; 80053; 83880; 84484; 85025; 93005; 93010; 99285-25

== ENCOUNTER 2023-08-11 14:36 | Inpatient (IN) | payer MEDICARE ==
[~2023-08-11] VITALS: Ht 180.3 cm; Wt 95.7 kg
[2023-08-11] MEDS ORDERED: Ondansetron HCl 2 MG / ML 2ML Vial IV ONE (15:25)
[2023-08-11 15:41] LABS: BASOPHILS ABSOLUTE AUTO 0.08 K/mm3 (0.00-0.23); BASOPHILS PERCENT AUTO 1 % (0-2); EOSINOPHILS ABSOLUTE AUTO 0.07 K/mm3 (0.00-0.68); EOSINOPHILS PERCENT AUTO 0 % (0-6); Hemoglobin 15.2 g/dL (11.5-16.0); IMMATURE GRAN ABSOLUTE AUTO 0.07 K/mm3 (0.00-0.10); IMMATURE GRAN PERCENT AUTO 0 % (0-1); LYMPHOCYTES ABSOLUTE AUTO 1.08 K/mm3 (0.84-5.20); LYMPHOCYTES PERCENT AUTO 7 % (21-46); MONOCYTES ABSOLUTE AUTO 1.26 K/mm3 (0.16-1.47); MONOCYTES PERCENT AUTO 8 % (4-13); Mean Corpuscular HGB 29.7 pg (26.0-34.0); Mean Corpuscular HGB Conc 32.3 g/dL (31.5-36.5); Mean Corpuscular Volume 92 fL (80-100); Mean Platelet Volume 11.1 fL (9.1-12.4); NEUTROPHILS ABSOLUTE AUTO 13.36 K/mm3 (1.96-9.15); NEUTROPHILS PERCENT AUTO 84 % (41-73); Platelet Count 399 K/mm3 (150-400); RDW Coefficient Variation 15.6 % (11.7-14.2); RDW Standard Deviation 52.7 fL (35.1-46.3); Red Blood Cell Count 5.11 M/mm3 (3.80-5.20); White Blood Cell Count 15.92 K/mm3 (4.00-11.30)
[2023-08-11 15:56] LABS: Influenza A, PCR NEGATIVE (NEGATIVE); Influenza B, PCR NEGATIVE (NEGATIVE); Resp Syncytial Virus, PCR NEGATIVE (NEGATIVE); SARS-Cov-2 (COVID-19) PCR, MMC NEGATIVE (NEGATIVE)
[2023-08-11 15:59] LABS: Albumin, Blood 2.6 g/dL (3.4-5.0); Albumin/Globulin Ratio 0.5 (0.8-1.8); Bilirubin, Total 1.5 mg/dL (0.1-1.0); Bun/Creatinine Ratio 38.9 (12.0-20.0); Creatinine, Blood 0.77 mg/dL (0.40-1.00); Globulin, Blood 5.3 g/dL (2.2-4.0); Potassium, Blood 5.2 mmol/L (3.5-5.5); Total Protein, Blood 7.9 g/dL (6.4-8.2)
[2023-08-11] MEDS ORDERED: CeFAZolin Sodium 2,000 MG in NS 100 ML IV ONE (17:10)
[2023-08-11] MEDS ORDERED: NS 1,000 ML IV SCH (17:50)
[2023-08-11] MEDS ORDERED: Ondansetron HCl 2 MG / ML 2ML Vial IV PRN (17:55)
[2023-08-11] MEDS ORDERED: Acetaminophen 325 MG TABLET PO PRN (18:00)
[2023-08-11] MEDS ORDERED: Albuterol 2.5 MG/3 ML VIAL INH PRN (18:00)
[2023-08-11] MEDS ORDERED: Vancomycin HCL 1,500 MG in NS 250 ML IV ONE (18:20)
[2023-08-11 19:39] VITALS: BP 136/93
[2023-08-11] MEDS ORDERED: Lactobacil 2-S.Thermo-Bifido 1 1 Cap PO SCH (21:00)
[2023-08-11] MEDS ORDERED: Insulin Glargine-Yfgn 100 Unit/mL 3 ML SYR SC SCH (21:00)
[2023-08-11] MEDS ORDERED: Gabapentin 400 MG Cap PO SCH (21:00)
--- NOTE | 2023-08-11 22:01 | NUR ---
ARRIVAL TO PCU AFTER RECEIVING REPORT FROM [facility]3] ED RN, PATIENT TRANSFERRED TO PCU VIA ED GURNEY AT APPROX 1930. TRANSFERRED TO BED VIA SLIDER SHEET. IS ALERT AND ORIENTED X4. PERRLA. MOVES ALL EXTREMITIES EQUALLY. L BKA AND MULTIPLE TOE AMPUTATIONS ON R FOOT. REPORTS BASELINE CANE AND PROSTHETIC USE FOR MOBILITY. TELEMETRY SHOWING SINUS 70s. BP STABLE. DENIES CHEST PAIN, PRESSURE. ARRIVED ON ROOM AIR, SATs <88%. PLACED ON 2L VIA NC, SATs >90%. OCCASIONAL DRY, NONPRODUCTIVE COUGH. COMPLETE BEDBATH PERFORMED. REDNESS TO COCCYX NOTED - BLANCHABLE. TUNNELING ULCER TO R PLANTAR ASPEC OF FOOT - DENIES SENSATION. PICTURE IN CHART. REDNESS, SWELLING FROM R ANKLE TO BELOW KNEE. PICTURE IN CHART. REPORTS 6/10 PAIN D/T CELLULITIS. MEDICATED PER EMAR WITH PO TYLENOL. EXPERIENCES EPISODES OF URINARY INCONTINENCE. ATTENDS IN PLACE. URINAL WITHIN REACH. CALL LIGHT IN REACH.
[2023-08-11 23:05] VITALS: BP 123/87
[2023-08-12] MEDS ORDERED: CeFAZolin Sodium 2,000 MG in NS 100 ML IV SCH (02:00)
[2023-08-12 03:16] VITALS: BP 137/88
--- NOTE | 2023-08-12 04:47 | NUR ---
SHIFT SUMMARY NO ACUTE EVENTS SINCE ARRIVAL TO PCU NOTE. PATIENT REMAINS ALERT AND ORIENTED X4. COOPERATIVE WITH CARE, COMMUNICATES NEEDS EFFECTIVELY. TELEMETRY SHOWING SINUS 70s. BP STABLE. DENIES CHEST PAIN, PRESSURE. IS ON 2-4L VIA NC, SATs >90%. EXPERIENCES EPISODES OF DRY HACKING COUGH IN WHICH SHE NORMALLY USES HER ALBUTEROL INHALER AT HOME. RT AWARE, RT TO COME TO BEDSIDE TO ADMINISTER. NO GROWTH IN RLE REDNESS - REMAINS ABOVE ANKLE AND BELOW KNEE. PAIN TOLERABLE WITH PO TYLENOL. REPOSITIONING HERSELF INDEPENDENTLY IN BED. CHANGING ATTENDS PRN FOR EPISODES OF URINARY INCONTINENCE. URINAL AT BEDSIDE. CALL LIGHT IN REACH. WILL CONTINUE TO MONITOR AND REPORT TO ONCOMING RN.
[2023-08-12 04:57] LABS: BASOPHILS ABSOLUTE AUTO 0.06 K/mm3 (0.00-0.23); BASOPHILS PERCENT AUTO 0 % (0-2); EOSINOPHILS ABSOLUTE AUTO 0.19 K/mm3 (0.00-0.68); EOSINOPHILS PERCENT AUTO 1 % (0-6); Hematocrit 44.5 % (33.0-51.0); Hemoglobin 14.3 g/dL (11.5-16.0); IMMATURE GRAN ABSOLUTE AUTO 0.07 K/mm3 (0.00-0.10); IMMATURE GRAN PERCENT AUTO 1 % (0-1); LYMPHOCYTES ABSOLUTE AUTO 0.64 K/mm3 (0.84-5.20); LYMPHOCYTES PERCENT AUTO 4 % (21-46); MONOCYTES ABSOLUTE AUTO 0.79 K/mm3 (0.16-1.47); MONOCYTES PERCENT AUTO 5 % (4-13); Mean Corpuscular HGB 29.4 pg (26.0-34.0); Mean Corpuscular HGB Conc 32.1 g/dL (31.5-36.5); Mean Corpuscular Volume 92 fL (80-100); Mean Platelet Volume 11.2 fL (9.1-12.4); NEUTROPHILS PERCENT AUTO 88 % (41-73); Platelet Count 350 K/mm3 (150-400); RDW Coefficient Variation 15.5 % (11.7-14.2); RDW Standard Deviation 52.3 fL (35.1-46.3); Red Blood Cell Count 4.86 M/mm3 (3.80-5.20); White Blood Cell Count 14.95 K/mm3 (4.00-11.30)
[2023-08-12 05:16] LABS: Albumin, Blood 2.2 g/dL (3.4-5.0); Albumin/Globulin Ratio 0.4 (0.8-1.8); Bilirubin, Total 0.8 mg/dL (0.1-1.0); Bun/Creatinine Ratio 37.7 (12.0-20.0); Calcium, Blood 8.3 mg/dL (8.5-10.1); Creatinine, Blood 0.96 mg/dL (0.40-1.00); Globulin, Blood 4.9 g/dL (2.2-4.0); Potassium, Blood 4.4 mmol/L (3.5-5.5); Total Protein, Blood 7.1 g/dL (6.4-8.2)
[2023-08-12] MEDS ORDERED: Insulin Human Lispro 100 Units/ML 3ML Syringe SC SCH ×2 (07:30→11:30)
[2023-08-12] MEDS ORDERED: Vancomycin HCL 1,250 MG in NS 250 ML IV SCH (08:00)
[2023-08-12 08:51] VITALS: BP 124/84
[2023-08-12] MEDS ORDERED: Lactated Ringer's 1,000 ML IV SCH (08:55)
[2023-08-12] MEDS ORDERED: Metoprolol Succinate 25 MG TABCR PO SCH (09:00)
[2023-08-12] MEDS ORDERED: Empagliflozin 10 MG TAB PO SCH (09:00)
[2023-08-12] MEDS ORDERED: Enoxaparin 40 MG/0.4 ML SYR SC SCH (09:00)
[2023-08-12 12:25] VITALS: BP 132/91
[2023-08-12 16:26] VITALS: BP 125/82
--- NOTE | 2023-08-12 18:51 | NUR ---
ASSUMED CARE OF PT AT [address] SILVA (PODIATRY) IN TO SEE PT THIS AM AND EVALUATE R FOOT WOUND. SEE HIS CONSULT NOTE, NO SURGICAL PROCEDURE IS PLANNED. NO ACUTE CHANGES TO PT CONDITION NOTED T/O THE DAY. REDNESS TO RLE OUTLINED THIS AM TO TRACK CHANGES. R FOOT DRESSED PER DR SILVA'S RECOMMENDATIONS. DR SNYDER IN TO SEE PT IN AM AND AFTERNOON. THIS RN REPORTED TO HER THAT THE PT'S O2 DROPS INTO THE 70s WHILE SLEEPING, AND QUICKLY RETURNS TO 90s. BREATHING PATTERN DURING THESE EPISODES COULD BE SLEEP APNEA. PT STATES THEY HAVE BEEN INFORMED IN THE PAST FOR THE NEED TO BE EVALUATED FOR TREVER, BUT HAS NOT DONE SO. ORDER FOR CPAP THERAPY PLACED PER DR SNYDER'S VERBAL ORDER. PT HAS DEVELOPED A DRY COUGH TODAY, DENIES SOB, NO SIGNS OF RESP DISTRESS NOTED. PT IS ABLE TO USE CALL LIGHT APPROPRIATELY AND COMMUNICATE NEEDS. CALL LIGHT IN REACH. WILL CONTINUE TO MONITOR AND GIVE REPORT TO NOC SHIFT RN.
[2023-08-12] MEDS ORDERED: NS 250 ML IV PRN (20:35)
[2023-08-12 20:44] VITALS: BP 123/88
[2023-08-12] MEDS ORDERED: Benzonatate 100 MG Cap PO PRN (21:25)
[2023-08-12 22:56] VITALS: BP 123/92
[2023-08-13 02:54] VITALS: BP 122/88
[2023-08-13 04:36] LABS: BASOPHILS ABSOLUTE AUTO 0.07 K/mm3 (0.00-0.23); BASOPHILS PERCENT AUTO 1 % (0-2); EOSINOPHILS ABSOLUTE AUTO 0.46 K/mm3 (0.00-0.68); EOSINOPHILS PERCENT AUTO 4 % (0-6); Hematocrit 42.7 % (33.0-51.0); Hemoglobin 13.6 g/dL (11.5-16.0); IMMATURE GRAN ABSOLUTE AUTO 0.03 K/mm3 (0.00-0.10); IMMATURE GRAN PERCENT AUTO 0 % (0-1); LYMPHOCYTES ABSOLUTE AUTO 1.45 K/mm3 (0.84-5.20); LYMPHOCYTES PERCENT AUTO 12 % (21-46); MONOCYTES ABSOLUTE AUTO 1.33 K/mm3 (0.16-1.47); MONOCYTES PERCENT AUTO 11 % (4-13); Mean Corpuscular HGB 29.1 pg (26.0-34.0); Mean Corpuscular HGB Conc 31.9 g/dL (31.5-36.5); Mean Corpuscular Volume 91 fL (80-100); Mean Platelet Volume 10.9 fL (9.1-12.4); NEUTROPHILS ABSOLUTE AUTO 8.36 K/mm3 (1.96-9.15); NEUTROPHILS PERCENT AUTO 71 % (41-73); Platelet Count 370 K/mm3 (150-400); RDW Coefficient Variation 15.5 % (11.7-14.2); RDW Standard Deviation 51.2 fL (35.1-46.3); Red Blood Cell Count 4.68 M/mm3 (3.80-5.20)
--- NOTE | 2023-08-13 04:46 | NUR ---
SHIFT SUMMARY PT A&Ox4, CALLS AND COMMUNICATES NEEDS APPROPRIATELY. BP STABLE, SINUS 70's, DENIES CP/PRESSURE. AT START OF SHIFT, PT BREATHING THROUGH MOUTH ON 4L VIA NC AND DESATURATING VERY BRIEFLY TO HIGH 70's AT TIMES. RT NOTIFIED. PT REFUSING TO WEAR VENTI MASK AND CPAP. PT DID NOT HAVE ANY FURTHER EPISODES OF DESATURATION FROM MID-END SHIFT. SPO2> 92% 4L VIA NC, DENIES SOB. INCONTINENT/CONTINENT OF URINE, NO BM THIS SHIFT. PT SBA TO STAND AT BEDSIDE. DRESSING ON R FOOT CHANGED. NO OTHER EVENTS, WILL REPORT TO ON COMING RN.
[2023-08-13 05:01] LABS: Calcium, Blood 8.5 mg/dL (8.5-10.1); Creatinine, Blood 1.2 mg/dL (0.40-1.00); Potassium, Blood 4.3 mmol/L (3.5-5.5)
[2023-08-13 07:38] LABS: Vancomycin, Trough 21.6 ug/mL (5.0-10.0)
[2023-08-13 08:35] VITALS: BP 126/84
[2023-08-13] MEDS ORDERED: Lisinopril 5 MG Tab PO SCH (09:00)
[2023-08-13 11:44] VITALS: BP 137/85
[2023-08-13] MEDS ORDERED: Vancomycin HCL 1,000 MG in NS 100 ML IV SCH (12:00)
[2023-08-13 13:03] VITALS: BP 130/87
--- NOTE | 2023-08-13 13:09 | NUR ---
ASSUMED CARE OF PT AT 0700 THIS AM. NO ACUTE EVENTS. PT STATUS CHANGED TO MEDICAL NO TELE BY DR SNYDER. SEE DOCUMENTED VS AND ASSESSMENT. NO CONCERNS OR ISSUES NOTED. REPORT GIVEN TO MARYURI PERKINS @ 7120 AND PT TRANSFERED WITH ALL BELONGINGS TO ROOM 363.
[2023-08-13 15:47] VITALS: BP 125/86
--- NOTE | 2023-08-13 16:07 | NUR ---
SHIFT SUMMARY; PATIENT ASRRIVES TO [facility] FROM [facility] SHORTLY AFTER LUNCH. SHE IS COOPERATIVE WITH CARE AND ABLE TO MAKE HER NEEDS KNOWN. SHE IS A MALE TO FEMALE TRANSGENDER IDENTIFYING FEMALE AND PREFERS HER, AND SHE. SHE HAS A LEFT BKA AND USES A PROSTHETIC LEG WHICH IS AT BEDSIDE. HER VITAL SIGNS ARE STABLE AND SHE USES CALL LIGHT APPROPRIATELY. SHE REMAINS IN MRSA CONTACT PRECAUTIONS FOR ULCER THAT IS OPEN ON HER RIGHT FOOT BOTTOM. DRESSING CHANGED PRIOR TO PATIENT ARRIVAL TO [facility] FLOOR BY PCU NURSE. WILL MONITOR CLOSELY FOR ANY NEED TO REINFORCE OR CONTACT MD FOR BLEEDING. SHE TAKES HER PILLS WHOLE WITH WATER AND IS ON A CONSITANT CARB DIET.
[2023-08-13 20:06] VITALS: BP 129/82
--- NOTE | 2023-08-14 05:06 | NUR ---
SHIFT SUMMARY: PT IS ALERT AND ORIENTED. PT IS CALM AND COOPERATIVE WITH CARE. PT IS A ONE PERSON ASSIST, FOR AMBULATION. PT REPORTS R. FOOT PAIN ON ONE OCCASION, GAVE PRN TYLENOL. PT DENIES NAUSEA, VOMITING, AND SOB. NO ACUTE CHANGES OR COMPLICATIONS OVERNIGHT. POSSIBLE DC HOME TODAY. WILL CONTINUE TO MONITOR.
[2023-08-14 05:32] LABS: BASOPHILS ABSOLUTE AUTO 0.06 K/mm3 (0.00-0.23); BASOPHILS PERCENT AUTO 1 % (0-2); EOSINOPHILS ABSOLUTE AUTO 0.27 K/mm3 (0.00-0.68); EOSINOPHILS PERCENT AUTO 3 % (0-6); Hematocrit 42.4 % (33.0-51.0); Hemoglobin 13.8 g/dL (11.5-16.0); IMMATURE GRAN ABSOLUTE AUTO 0.02 K/mm3 (0.00-0.10); IMMATURE GRAN PERCENT AUTO 0 % (0-1); LYMPHOCYTES ABSOLUTE AUTO 1.55 K/mm3 (0.84-5.20); LYMPHOCYTES PERCENT AUTO 16 % (21-46); MONOCYTES PERCENT AUTO 12 % (4-13); Mean Corpuscular HGB 29.4 pg (26.0-34.0); Mean Corpuscular HGB Conc 32.5 g/dL (31.5-36.5); Mean Corpuscular Volume 90 fL (80-100); Mean Platelet Volume 11.2 fL (9.1-12.4); NEUTROPHILS ABSOLUTE AUTO 6.88 K/mm3 (1.96-9.15); NEUTROPHILS PERCENT AUTO 69 % (41-73); Platelet Count 397 K/mm3 (150-400); RDW Coefficient Variation 15.5 % (11.7-14.2); RDW Standard Deviation 51.4 fL (35.1-46.3); White Blood Cell Count 9.98 K/mm3 (4.00-11.30)
[2023-08-14 06:07] LABS: Bun/Creatinine Ratio 39.3 (12.0-20.0); Calcium, Blood 8.3 mg/dL (8.5-10.1); Creatinine, Blood 1.17 mg/dL (0.40-1.00); Potassium, Blood 4.2 mmol/L (3.5-5.5)
[2023-08-14 06:36] VITALS: BP 140/95
[2023-08-14 07:36] VITALS: BP 135/94
[2023-08-14] MEDS ORDERED: LISI5 PO (15:36)
[2023-08-14] MEDS ORDERED: JARDIANCE10 MG PO (15:36)
[2023-08-14] MEDS ORDERED: VISBIOME 112.51 EACH PO (15:37)
[2023-08-14] MEDS ORDERED: AMOCLA875 PO (15:38)
[2023-08-14 16:16] VITALS: BP 135/93
[2023-08-21] MEDS ORDERED: SPIR25 PO (15:51)
== END 2023-08-14 19:28 | disposition home or self-care (01) | DRG 872 ==
LOC: ER 14:36 → PCU 19:15 → MEDS 08-13 12:38 → ENPENDDIS 08-14 13:05 → MEDS 08-14 19:28
PROVIDERS: Family Medicine; Nurse Practitioner Acute Care; Physician Assistant; ADMIT Student in an Organized Health Care Education/Training Program
DX: A41.2 Sepsis due to unspecified staphylococcus (principal); L03.115 Cellulitis of right lower limb; I13.0 Hypertensive heart and chronic kidney disease with heart failure and stage 1 through stage 4 chronic kidney disease, or unspecified chronic kidney disease; I50.22 Chronic systolic (congestive) heart failure; E11.52 Type 2 diabetes mellitus with diabetic peripheral angiopathy with gangrene; I96 Gangrene, not elsewhere classified; E11.22 Type 2 diabetes mellitus with diabetic chronic kidney disease; N18.30 Chronic kidney disease, stage 3 unspecified; E11.65 Type 2 diabetes mellitus with hyperglycemia; Z66 Do not resuscitate; E11.621 Type 2 diabetes mellitus with foot ulcer; I25.10 Atherosclerotic heart disease of native coronary artery without angina pectoris; R65.20 Severe sepsis without septic shock; Z86.14 Personal history of Methicillin resistant Staphylococcus aureus infection; Z86.19 Personal history of other infectious and parasitic diseases; Z89.512 Acquired absence of left leg below knee; Z89.431 Acquired absence of right foot; Z87.891 Personal history of nicotine dependence; Z88.8 Allergy status to other drugs, medicaments and biological substances; Z79.899 Other long term (current) drug therapy; Z79.82 Long term (current) use of aspirin; Z79.4 Long term (current) use of insulin; L97.513 Non-pressure chronic ulcer of other part of right foot with necrosis of muscle; Z89.411 Acquired absence of right great toe
CPT/HCPCS: 0241U; 36415; 71045; 73620; 73701; 80048; 80053; 80202; 82947; 83036; 83605; 85025; 87040; 87077; 87186; 94640; 94664; 94760; 99285-25; A9270; J0690; J1650; J1815; J2405; J3370; J7030; J7050; J7120; Q9967

== ENCOUNTER → 2023-08-11 | Outpatient (CLI) | payer MEDICARE ==
[~2023-08-11] MED LIST changes: +ALBU90OI INH; +ASPI81CH PO; +GUAI600T33 PO; +POTA10T PO; +STEGLATRO5 MG PO; +TORSE20 PO
== END ==
LOC: LAB SHORT 17:55 → LAB 17:55
DX: E11.621 Type 2 diabetes mellitus with foot ulcer (principal); L03.115 Cellulitis of right lower limb
CPT/HCPCS: 87070; 87075; 87077; 87147; 87186; 87205

== ENCOUNTER 2023-08-21 10:52 | Inpatient (IN) | payer MEDICARE ==
[~2023-08-21] VITALS: Ht 177.8 cm; Wt 96.0 kg
[2023-08-21 11:37] LABS: BASOPHILS ABSOLUTE AUTO 0.06 K/mm3 (0.00-0.23); BASOPHILS PERCENT AUTO 1 % (0-2); EOSINOPHILS ABSOLUTE AUTO 0.18 K/mm3 (0.00-0.68); EOSINOPHILS PERCENT AUTO 2 % (0-6); Hematocrit 44.7 % (33.0-51.0); Hemoglobin 14.3 g/dL (11.5-16.0); IMMATURE GRAN ABSOLUTE AUTO 0.06 K/mm3 (0.00-0.10); IMMATURE GRAN PERCENT AUTO 1 % (0-1); LYMPHOCYTES ABSOLUTE AUTO 1.22 K/mm3 (0.84-5.20); LYMPHOCYTES PERCENT AUTO 10 % (21-46); MONOCYTES ABSOLUTE AUTO 0.89 K/mm3 (0.16-1.47); MONOCYTES PERCENT AUTO 8 % (4-13); Mean Corpuscular HGB 28.6 pg (26.0-34.0); Mean Corpuscular Volume 89 fL (80-100); Mean Platelet Volume 10.5 fL (9.1-12.4); NEUTROPHILS ABSOLUTE AUTO 9.38 K/mm3 (1.96-9.15); NEUTROPHILS PERCENT AUTO 80 % (41-73); Platelet Count 464 K/mm3 (150-400); RDW Coefficient Variation 15.7 % (11.7-14.2); RDW Standard Deviation 51.1 fL (35.1-46.3); White Blood Cell Count 11.79 K/mm3 (4.00-11.30)
[2023-08-21 11:55] LABS: Albumin, Blood 2.3 g/dL (3.4-5.0); Albumin/Globulin Ratio 0.5 (0.8-1.8); Bilirubin, Total 1.3 mg/dL (0.1-1.0); Bun/Creatinine Ratio 29.4 (12.0-20.0); Calcium, Blood 8.4 mg/dL (8.5-10.1); Creatinine, Blood 0.92 mg/dL (0.40-1.00); Total Protein, Blood 7.3 g/dL (6.4-8.2)
[2023-08-21] MEDS ORDERED: Piperacillin/Tazobactam Sod 3.375 GM in NS 100 ML IV ONE (12:35)
[2023-08-21] MEDS ORDERED: Ondansetron HCl 2 MG / ML 2ML Vial IV ONE (12:35)
[2023-08-21] MEDS ORDERED: Morphine Sulfate 4 MG/1 ML Injection IV ONE (12:35)
[2023-08-21] MEDS ORDERED: Vancomycin HCL 2,000 MG in NS 500 ML IV ONE (13:05)
[2023-08-21] MEDS ORDERED: Polyethylene Glycol 3350 17 gm PO PRN (13:45)
[2023-08-21] MEDS ORDERED: Acetaminophen 325 MG TABLET PO PRN (13:45)
[2023-08-21] MEDS ORDERED: NS 250 ML IV PRN (15:15)
[2023-08-21 15:40] VITALS: BP 142/89
[2023-08-21] MEDS ORDERED: Insulin Human Lispro 100 Units/ML 3ML Syringe SC SCH (16:30)
[2023-08-21] MEDS ORDERED: OxyCODONE HCL 5 MG TAB PO PRN (16:55)
[2023-08-21] MEDS ORDERED: Piperacillin/Tazobactam Sod 4.5 GM in NS 100 ML IV SCH (18:00)
[2023-08-21 19:50] VITALS: BP 144/86
[2023-08-21] MEDS ORDERED: Lactobacil 2-S.Thermo-Bifido 1 1 Cap PO SCH (21:00)
[2023-08-21] MEDS ORDERED: Gabapentin 400 MG Cap PO SCH (21:00)
[2023-08-21] MEDS ORDERED: Mirtazapine 15 MG Tab PO SCH (21:00)
[2023-08-21] MEDS ORDERED: Docusate Sodium/Senna 1 Tab PO SCH (21:00)
[2023-08-21] MEDS ORDERED: FentaNYL Citrate 50 MCG/ML 2 ML Injection IV PRN (23:30)
[2023-08-22] VITALS (13 sets, daily range): BP systolic 131–160; BP diastolic 74–99
[2023-08-22] MEDS ORDERED: Vancomycin HCL 1,000 MG in NS 250 ML IV SCH (02:00)
[2023-08-22 04:46] LABS: Hematocrit 41.2 % (33.0-51.0); Hemoglobin 13.2 g/dL (11.5-16.0); Mean Corpuscular HGB 28.8 pg (26.0-34.0); Mean Corpuscular Volume 90 fL (80-100); Mean Platelet Volume 10.4 fL (9.1-12.4); Platelet Count 390 K/mm3 (150-400); RDW Coefficient Variation 15.7 % (11.7-14.2); RDW Standard Deviation 51.1 fL (35.1-46.3); Red Blood Cell Count 4.59 M/mm3 (3.80-5.20)
[2023-08-22 05:20] LABS: Magnesium, Blood 1.7 mg/dL (1.6-2.4)
[2023-08-22 06:05] LABS: Albumin, Blood 1.9 g/dL (3.4-5.0); Anion Gap 7 mmol/L (3-11); Blood Urea Nitrogen 24 mg/dL (8-24); Bun/Creatinine Ratio 27.7 (12.0-20.0); CO2, Blood 29 mmol/L (21-32); Calcium, Blood 8.1 mg/dL (8.5-10.1); Chloride, Blood 105 mmol/L (98-108); Creatinine, Blood 0.87 mg/dL (0.40-1.00); Glomerular Filtration Rate 78 (60-); Glucose, Blood 245 mg/dL (70-99); Phosphorus, Blood 3.4 mg/dL (2.5-4.9); Potassium, Blood 4.1 mmol/L (3.5-5.5); Sodium, Blood 137 mmol/L (136-145)
[2023-08-22] MEDS ORDERED: Cholecalciferol 1000 Unit Tablet (=25MCG) PO SCH (09:00)
[2023-08-22] MEDS ORDERED: Insulin Glargine-Yfgn 100 Unit/mL 3 ML SYR SC SCH (09:00)
[2023-08-22] MEDS ORDERED: Multivitamins 1 Tab PO SCH (09:00)
[2023-08-22] MEDS ORDERED: Spironolactone 25 MG Tab PO SCH (09:00)
[2023-08-22] MEDS ORDERED: Metoprolol Succinate 25 MG TABCR PO SCH (09:00)
[2023-08-22] MEDS ORDERED: Lisinopril 5 MG Tab PO SCH (09:00)
[2023-08-22] MEDS ORDERED: Torsemide 20 MG TAB PO SCH (09:00)
[2023-08-22] MEDS ORDERED: Aspirin 81 MG Chew PO SCH (09:00)
[2023-08-22] MEDS ORDERED: Lactated Ringer's 1,000 ML IV ONE (17:24)
[2023-08-22] MEDS ORDERED: Ropivacaine 0.5% HCl/Pf 5 MG/ML 20ML VIAL ONE (17:48)
[2023-08-22] MEDS ORDERED: FentaNYL Citrate 50 MCG/ML 2 ML Injection ONE (18:06)
[2023-08-23 00:05] VITALS: BP 126/77
[2023-08-23 01:13] LABS: Hematocrit 40.4 % (33.0-51.0); Mean Corpuscular HGB 28.8 pg (26.0-34.0); Mean Corpuscular HGB Conc 32.2 g/dL (31.5-36.5); Mean Corpuscular Volume 90 fL (80-100); Mean Platelet Volume 10.3 fL (9.1-12.4); Platelet Count 393 K/mm3 (150-400); RDW Coefficient Variation 15.6 % (11.7-14.2); RDW Standard Deviation 50.8 fL (35.1-46.3); Red Blood Cell Count 4.51 M/mm3 (3.80-5.20); White Blood Cell Count 10.35 K/mm3 (4.00-11.30)
[2023-08-23 01:32] LABS: Albumin, Blood 1.8 g/dL (3.4-5.0); Anion Gap 7 mmol/L (3-11); Blood Urea Nitrogen 24 mg/dL (8-24); Bun/Creatinine Ratio 26.6 (12.0-20.0); CO2, Blood 30 mmol/L (21-32); Calcium, Blood 7.6 mg/dL (8.5-10.1); Chloride, Blood 106 mmol/L (98-108); Glomerular Filtration Rate 75 (60-); Glucose, Blood 248 mg/dL (70-99); Phosphorus, Blood 3.3 mg/dL (2.5-4.9); Potassium, Blood 4.1 mmol/L (3.5-5.5); Sodium, Blood 139 mmol/L (136-145)
[2023-08-23 02:45] VITALS: BP 134/85
[2023-08-23 07:09] VITALS: BP 154/94
[2023-08-23 07:13] VITALS: BP 154/94
[2023-08-23 15:06] VITALS: BP 149/94
[2023-08-23 18:32] VITALS: BP 146/79
[2023-08-23] MEDS ORDERED: Insulin Glargine-Yfgn 100 Unit/mL 3 ML SYR SC SCH (21:00)
[2023-08-24 01:22] LABS: Vancomycin, Trough 18.8 ug/mL (5.0-10.0)
[2023-08-24 06:02] VITALS: BP 134/76
[2023-08-24 07:25] VITALS: BP 145/87
[2023-08-24] MEDS ORDERED: Enoxaparin 40 MG/0.4 ML SYR SC SCH (13:00)
[2023-08-24 16:20] VITALS: BP 144/84
[2023-08-24 19:14] VITALS: BP 126/84
[2023-08-25 03:21] VITALS: BP 151/89
[2023-08-25 04:02] LABS: Hematocrit 42.6 % (33.0-51.0); Hemoglobin 13.2 g/dL (11.5-16.0); Mean Corpuscular HGB 28.2 pg (26.0-34.0); Mean Corpuscular Volume 91 fL (80-100); Mean Platelet Volume 10.2 fL (9.1-12.4); Platelet Count 374 K/mm3 (150-400); RDW Coefficient Variation 15.9 % (11.7-14.2); Red Blood Cell Count 4.68 M/mm3 (3.80-5.20); White Blood Cell Count 9.63 K/mm3 (4.00-11.30)
[2023-08-25 04:27] LABS: Albumin, Blood 1.9 g/dL (3.4-5.0); Anion Gap 8 mmol/L (3-11); Blood Urea Nitrogen 33 mg/dL (8-24); CO2, Blood 30 mmol/L (21-32); Calcium, Blood 7.9 mg/dL (8.5-10.1); Chloride, Blood 107 mmol/L (98-108); Glomerular Filtration Rate 59 (60-); Glucose, Blood 229 mg/dL (70-99); Phosphorus, Blood 3.3 mg/dL (2.5-4.9); Potassium, Blood 4.6 mmol/L (3.5-5.5); Sodium, Blood 140 mmol/L (136-145)
[2023-08-25 07:39] VITALS: BP 162/99
[2023-08-25] MEDS ORDERED: Insulin Glargine-Yfgn 100 Unit/mL 3 ML SYR SC SCH (09:00)
== END 2023-08-25 14:04 | DRG 616 ==
LOC: ER 10:52 → SURS 13:40
PROVIDERS: Emergency Medicine; Family Medicine; Podiatrist Foot & Ankle Surgery; ADMIT Internal Medicine
PROC: 0Y6M0ZB Detachment at Right Foot, Partial 2nd Ray, Open Approach (ICD-10-PCS; 2023-08-22)
PROC: 0Y6M0ZC Detachment at Right Foot, Partial 3rd Ray, Open Approach (ICD-10-PCS; 2023-08-22)
PROC: 0Y6M0ZD Detachment at Right Foot, Partial 4th Ray, Open Approach (ICD-10-PCS; 2023-08-22)
PROC: 0Y6M0ZF Detachment at Right Foot, Partial 5th Ray, Open Approach (ICD-10-PCS; 2023-08-22)
PROC: 0Y6M0Z9 Detachment at Right Foot, Partial 1st Ray, Open Approach (ICD-10-PCS; principal; 2023-08-22 17:00)
DX: E11.69 Type 2 diabetes mellitus with other specified complication (principal); A48.0 Gas gangrene; E11.52 Type 2 diabetes mellitus with diabetic peripheral angiopathy with gangrene; I50.22 Chronic systolic (congestive) heart failure; M86.8X7 Other osteomyelitis, ankle and foot; E11.621 Type 2 diabetes mellitus with foot ulcer; E11.22 Type 2 diabetes mellitus with diabetic chronic kidney disease; F32.A Depression, unspecified; I11.0 Hypertensive heart disease with heart failure; E11.42 Type 2 diabetes mellitus with diabetic polyneuropathy; L97.513 Non-pressure chronic ulcer of other part of right foot with necrosis of muscle; Z89.512 Acquired absence of left leg below knee; N18.2 Chronic kidney disease, stage 2 (mild); J43.9 Emphysema, unspecified; I25.10 Atherosclerotic heart disease of native coronary artery without angina pectoris; Z89.421 Acquired absence of other right toe(s); Z88.8 Allergy status to other drugs, medicaments and biological substances; Z79.82 Long term (current) use of aspirin; Z79.899 Other long term (current) drug therapy; Z79.4 Long term (current) use of insulin; Z79.811 Long term (current) use of aromatase inhibitors; Z86.19 Personal history of other infectious and parasitic diseases; Z86.14 Personal history of Methicillin resistant Staphylococcus aureus infection; Z87.19 Personal history of other diseases of the digestive system; Z87.891 Personal history of nicotine dependence
CPT/HCPCS: 36415; 73718; 80053; 80069; 80202; 82947; 83605; 83735; 85025; 85027; 85651; 86141; 86850; 86900; 86901; 93005; 93010; 94762; 96374; 96375; 97110; 97162; 97530; 99284-25; A9270; C8929; J1650; J1815; J2270; J2405; J2543; J2795; J3010; J3370; J7040; J7050; J7120

== ENCOUNTER → 2023-08-21 | Outpatient (CLI) | payer MEDICARE | LOC: LAB SHORT 11:11 → LAB 11:11 | DX: Z48.89 Encounter for other specified surgical aftercare (principal) | CPT/HCPCS: 87070; 87077; 87186; 87205 ==

== ENCOUNTER 2023-10-07 23:32 | Inpatient (IN) | payer MEDICARE ==
[~2023-10-07] VITALS: Ht 180.3 cm; Wt 93.6 kg
[~2023-10-07 23:32] MED LIST changes: +DOXY100 PO; +KLOR-CON 1010 ME9 PO
[2023-10-08] VITALS (42 sets, daily range): BP systolic 91–163; BP diastolic 64–97
[2023-10-08 00:14] LABS: BASOPHILS ABSOLUTE AUTO 0.02 K/mm3 (0.00-0.23); BASOPHILS PERCENT AUTO 0 % (0-2); EOSINOPHILS PERCENT AUTO 2 % (0-6); Hematocrit 40.1 % (33.0-51.0); Hemoglobin 12.4 g/dL (11.5-16.0); IMMATURE GRAN ABSOLUTE AUTO 0.05 K/mm3 (0.00-0.10); IMMATURE GRAN PERCENT AUTO 0 % (0-1); LYMPHOCYTES ABSOLUTE AUTO 0.99 K/mm3 (0.84-5.20); LYMPHOCYTES PERCENT AUTO 7 % (21-46); MONOCYTES ABSOLUTE AUTO 1.02 K/mm3 (0.16-1.47); MONOCYTES PERCENT AUTO 8 % (4-13); Mean Corpuscular HGB 26.4 pg (26.0-34.0); Mean Corpuscular HGB Conc 30.9 g/dL (31.5-36.5); Mean Corpuscular Volume 86 fL (80-100); Mean Platelet Volume 11.8 fL (9.1-12.4); NEUTROPHILS ABSOLUTE AUTO 11.15 K/mm3 (1.96-9.15); NEUTROPHILS PERCENT AUTO 83 % (41-73); Platelet Count 324 K/mm3 (150-400); RDW Standard Deviation 54.7 fL (35.1-46.3); Red Blood Cell Count 4.69 M/mm3 (3.80-5.20); White Blood Cell Count 13.53 K/mm3 (4.00-11.30)
[2023-10-08 00:28] LABS: Albumin, Blood 2.2 g/dL (3.4-5.0); Albumin/Globulin Ratio 0.4 (0.8-1.8); Bilirubin, Total 1.3 mg/dL (0.1-1.0); Bun/Creatinine Ratio 48.6 (12.0-20.0); Calcium, Blood 8.1 mg/dL (8.5-10.1); Creatinine, Blood 1.09 mg/dL (0.40-1.00); Globulin, Blood 5.1 g/dL (2.2-4.0); Potassium, Blood 4.6 mmol/L (3.5-5.5); Total Protein, Blood 7.3 g/dL (6.4-8.2)
[2023-10-08] MEDS ORDERED: Cefepime HCl 2,000 MG in NS 100 ML IV ONE (00:55)
[2023-10-08] MEDS ORDERED: Vancomycin HCL 2,000 MG in NS 500 ML IV ONE (01:00)
[2023-10-08 01:20] LABS: Beta-hydroxybutyrate 15.1 mg/dL (0.2-2.8)
[2023-10-08 01:29] LABS: Base Excess Venous -0.8 mmol/L; Bicarbonate Venous 22.9 mmol/L (24.0-30.0); pH Blood Venous 7.35 (7.34-7.37)
[2023-10-08] MEDS ORDERED: FentaNYL Citrate 50 MCG/ML 2 ML Injection IV PRN (02:10)
[2023-10-08] MEDS ORDERED: Acetaminophen 325 MG TABLET PO PRN (02:10)
[2023-10-08] MEDS ORDERED: Acetaminophen 650 MG Supp PR PRN (02:10)
[2023-10-08] MEDS ORDERED: Naloxone HCl 0.4MG / ML 1ML Vial IV PRN (02:10)
[2023-10-08] MEDS ORDERED: OxyCODONE HCL 5 MG TAB PO PRN (02:15)
[2023-10-08] MEDS ORDERED: Ondansetron HCl 2 MG / ML 2ML Vial IV PRN (02:15)
[2023-10-08] MEDS ORDERED: Insulin Human Regular 100 UNIT in NS 100 ML IV SCH (02:25)
[2023-10-08] MEDS ORDERED: Lactated Ringer's 1,000 ML IV SCH ×4 (02:30→17:30)
[2023-10-08] MEDS ORDERED: Meropenem 1,000 MG in NS 100 ML IV ONE (02:30)
[2023-10-08] MEDS ORDERED: Clindamycin 600mg in D5W 50 ML IV ONE (02:50)
[2023-10-08] MEDS ORDERED: Dextrose 50% 50 ML Vial IV PRN (02:55)
[2023-10-08] MEDS ORDERED: NS 250 ML IV PRN (03:25)
[2023-10-08 04:11] LABS: Magnesium, Blood 2.1 mg/dL (1.6-2.4)
[2023-10-08 04:15] LABS: Calcium, Blood 8.2 mg/dL (8.5-10.1); Creatinine, Blood 1.06 mg/dL (0.40-1.00); Phosphorus, Blood 2.9 mg/dL (2.5-4.9); Potassium, Blood 4.4 mmol/L (3.5-5.5)
[2023-10-08 05:51] LABS: Glucose, Blood 628 mg/dL (70-99)
--- NOTE | 2023-10-08 06:33 | NUR ---
SHIFT SUMMERY PT WAS ADMITTED FROM ER APPX 0330 TO ICU01. PT W/VANCOMYCIN INFUSING. INSULIN DRIP WAS STARTED UPON PT ARRIVAL FROM ER-SEE CRITICAL CARE FLOWSHEET. PT IS ALERT AND ORIENTED X4 W/SOME CONFUSION AT TIMES. PT VOIDED IN THE URINAL. PT HAS MULTIPLE SKIN LESIONS OF VARIOUS TYPES, PHOTOS ON CHART. PT IS ON ROOM AIR W/NO S/S OF RESP DISTRESS SINCE ARRIVING FROM ER, OXYGEN SAT >90%. BP WNL. SR W/BB ON THE ESTIMATOR AND DRAFTER.
--- NOTE | 2023-10-08 07:00 | NUR ---
ASSUMPTION OF CARE PT RECEIVING INSULIN 8UNITS/HR AND LR 100ML/HR. PT WAKENS TO VERBAL STIMULI. PODIATRY AT BEDSIDE FOR EVAL. PLAN FOR [facility]THO CONSULT PER PROVIDER.
[2023-10-08 07:20] LABS: Glucose, Blood 478 mg/dL (70-99)
[2023-10-08 08:42] LABS: Bun/Creatinine Ratio 50.5 (12.0-20.0); Creatinine, Blood 1.03 mg/dL (0.40-1.00); Potassium, Blood 3.9 mmol/L (3.5-5.5)
[2023-10-08] MEDS ORDERED: Lactobacil 2-S.Thermo-Bifido 1 1 Cap PO SCH (09:00)
[2023-10-08] MEDS ORDERED: Enoxaparin 40 MG/0.4 ML SYR SC SCH (09:00)
[2023-10-08] MEDS ORDERED: Meropenem 1,000 MG in NS 100 ML IV SCH (10:00)
[2023-10-08 13:00] LABS: Bun/Creatinine Ratio 50.6 (12.0-20.0); Calcium, Blood 8.2 mg/dL (8.5-10.1); Creatinine, Blood 0.95 mg/dL (0.40-1.00); Potassium, Blood 4.3 mmol/L (3.5-5.5)
--- NOTE | 2023-10-08 13:12 | NUR ---
UPDATE PT SEEN BY ORTHO. ORDER RECEIVED TO CONSULT IR BY DR BENITO. PROVIDER OFFICE NOTIFIED.
[2023-10-08] MEDS ORDERED: Clindamycin 600mg in D5W 50 ML IV SCH (15:00)
[2023-10-08] MEDS ORDERED: NS 1,000 ML IV ONE ×2 (17:01→17:31)
[2023-10-08] MEDS ORDERED: Heparin Sodium 1000 Units/ML 10ML MDV ONE (17:01)
[2023-10-08] MEDS ORDERED: NS 250 ML IV ONE (17:01)
--- NOTE | 2023-10-08 17:17 | NUR ---
PT TAKEN TO BLADE GRINDER AT THIS TIME
[2023-10-08] MEDS ORDERED: Midazolam HCl 1MG / ML 2ML Vial ONE (17:30)
[2023-10-08] MEDS ORDERED: FentaNYL Citrate 50 MCG/ML 2 ML Injection ONE (17:31)
--- NOTE | 2023-10-08 17:43 | NUR ---
SHIFT SUMMARY PT RECEIVING INSULIN 2UNITS/HR AND LR 100ML/HR. SHE IS A&OX3. SHE HAS BEEN DROWSY FOR MOST OF THE DAY BUT MORE ALERT OVER THE LAST FEW HOURS. PT HAS A FLAT/WITHDRAWN AFFECT WHICH APPEARED TO INCREASE WITH DISCUSSION OF SURGERY/AMPUTATION. SHE REMAINS ON RA. TOLERATED WATER AND ICE CHIPS WELL. PT HAD 1 LARGE INCONTINENT VOID, PUREWICK NOW IN PLACE WITH 650ML OUTPUT THIS SHIFT. PT CURRENTLY IN [employer]. ORDERS RECEIVED TO BEGIN TRANSITIONING TO SC INSULIN REGIMEN UPON ARRIVAL BACK. DINNER TRAY SAVED. NPO AFTER MIDNIGHT.
[2023-10-08 19:24] LABS: Albumin, Blood 1.8 g/dL (3.4-5.0); Albumin/Globulin Ratio 0.4 (0.8-1.8); Bilirubin, Total 0.9 mg/dL (0.1-1.0); Calcium, Blood 8.2 mg/dL (8.5-10.1); Creatinine, Blood 0.87 mg/dL (0.40-1.00); Potassium, Blood 4.4 mmol/L (3.5-5.5); Total Protein, Blood 6.8 g/dL (6.4-8.2)
--- NOTE | 2023-10-08 20:54 | NUR ---
INSULIN DRIP ON SB, PT SITTING UP IN BED EATING DINNER. WILL TRANSITION TO SQ INSULIN IF PT TOLERATES MEAL WELL.
[2023-10-08] MEDS ORDERED: Insulin Human Lispro 100 Units/ML 3ML Syringe SC SCH (21:00)
[2023-10-08] MEDS ORDERED: Insulin Glargine-Yfgn 100 Unit/mL 3 ML SYR SC SCH (21:00)
[2023-10-09] VITALS (26 sets, daily range): BP systolic 113–157; BP diastolic 67–93
[2023-10-09] MEDS ORDERED: Vancomycin HCL 1,250 MG in NS 250 ML IV SCH (02:00)
[2023-10-09 04:34] LABS: BASOPHILS ABSOLUTE AUTO 0.02 K/mm3 (0.00-0.23); BASOPHILS PERCENT AUTO 0 % (0-2); EOSINOPHILS ABSOLUTE AUTO 0.51 K/mm3 (0.00-0.68); EOSINOPHILS PERCENT AUTO 5 % (0-6); Hematocrit 35.1 % (33.0-51.0); Hemoglobin 10.9 g/dL (11.5-16.0); IMMATURE GRAN ABSOLUTE AUTO 0.04 K/mm3 (0.00-0.10); IMMATURE GRAN PERCENT AUTO 0 % (0-1); LYMPHOCYTES ABSOLUTE AUTO 1.42 K/mm3 (0.84-5.20); LYMPHOCYTES PERCENT AUTO 13 % (21-46); MONOCYTES ABSOLUTE AUTO 1.19 K/mm3 (0.16-1.47); MONOCYTES PERCENT AUTO 10 % (4-13); Mean Corpuscular HGB 26.2 pg (26.0-34.0); Mean Corpuscular HGB Conc 31.1 g/dL (31.5-36.5); Mean Corpuscular Volume 84 fL (80-100); Mean Platelet Volume 11.5 fL (9.1-12.4); NEUTROPHILS ABSOLUTE AUTO 8.21 K/mm3 (1.96-9.15); NEUTROPHILS PERCENT AUTO 72 % (41-73); Platelet Count 268 K/mm3 (150-400); RDW Coefficient Variation 18.2 % (11.7-14.2); RDW Standard Deviation 55.1 fL (35.1-46.3); Red Blood Cell Count 4.16 M/mm3 (3.80-5.20); White Blood Cell Count 11.39 K/mm3 (4.00-11.30)
[2023-10-09 04:51] LABS: Albumin, Blood 1.7 g/dL (3.4-5.0); Albumin/Globulin Ratio 0.4 (0.8-1.8); Calcium, Blood 7.6 mg/dL (8.5-10.1); Creatinine, Blood 0.93 mg/dL (0.40-1.00); Globulin, Blood 4.5 g/dL (2.2-4.0); Potassium, Blood 4.2 mmol/L (3.5-5.5); Total Protein, Blood 6.2 g/dL (6.4-8.2)
--- NOTE | 2023-10-09 07:00 | NUR ---
ASSUMPTION OF CARE PT RECEIVING LR 50ML/HR. SHE IS DROWSY, WAKENS TO VERBAL STIMULI. A&OX3. PT ON 2L NC WITH SPO2 >92%. SINUS WITH BBB ON MONITOR, RATE IN 70S-80S. BP STABLE. NPO SINCE MIDNIGHT. ABDOMEN SOFT, BOWEL TONES HYPOACTIVE. PUREWICK IN PLACE. BED IN LOW POSITION, CALL LIGHT WITHIN REACH.
--- NOTE | 2023-10-09 07:06 | NUR ---
SHIFT SUMMERY PT IS DROWSY, ORIENTED X3 AND FOLLOWING COMMANDS. PUREWICK IN PLACE WITH ADEQUATE URINE OUTPUT. HR AND BP STABLE. PT AFEBRILE. PT ON RA WHILE AWAKE AND 2L WHEN ASLEEP. PT HAS HAD NO ACUTE CHANGES OVERNIGHT.
[2023-10-09] MEDS ORDERED: Enoxaparin 40 MG/0.4 ML SYR SC SCH (13:20)
--- NOTE | 2023-10-09 13:20 | NUR ---
UPDATE/ORTHO/NEW ORDERS PT EVALUATED BY DR VAUGHN. PT EXPRESSES FEELING OVERWHELMED WITH HER SITUATION AND WOULD LIKE TO NOT MAKE ANY DECISIONS AT THIS TIME. PLAN TO REVISIT CONVERSATION ON THURSDAY. -START LOVENOX. HOLD THURSDAY AM DOSE. -NPO AT MIDNIGHT THURSDAY NIGHT FOR POSSIBLE PROCEDURE ON THURSDAY. -DAILY WET TO DRY DRESSING ON L STUMP. -DAILY ABD PAD AND KERLIX TO R FOOT. ORDERS ALSO PLACED NURSE NOTIFIES.
--- NOTE | 2023-10-09 17:09 | NUR ---
SHIFT SUMMARY PT RECEIVING LR 50ML/HR. SHE HAS BEEN DROWSY MOST OF THE DAY BUT WAKENS EASILY TO VERBAL STIMULI. SHE CONTINUES TO HAVE MOSTLY A FLAT AND WITHDRAWN AFFECT. PT REPORTS FEELING OVERWHELMED AND HAVING DIFFICULTY MAKING DECISIONS ABOUT HER CARE. APS SPOKE WITH PT THIS AM. SHE HAS BEEN ON RA THROUGHOUT THE DAY. SINUS WITH BBB ON MONITOR, HR 70S-80S. BP STABLE WITH MAP >65. PUREWICK IN PLACE WITH 1100ML OUTPUT. R FOOT AND L STUMP DRESSINGS CHANGED THIS SHIFT. BED IN LOW POSITION, CALL LIGHT WITHIN REACH.
--- NOTE | 2023-10-09 18:22 | NUR ---
"Spiritual Care | Nurse Request Called to the Pt. from attending nurse. Nurse Roxie verbalized thata she felt the Pt. needed someone to talk to. Arrived at dinner time. Facilitated a life review. Pt. spent a good length of time sharing. When Pt. shared about his daughter, tears welled up. With theraputic listening the Pt. began to display evidence of trust. Pt. denies that roger is a part of his life, but that he is seeking to find hope. Pastoral affirmation is given. Pt. verbalized gratitude for the spiritual care visit."
[2023-10-10 01:15] LABS: Vancomycin, Trough 14.7 ug/mL (5.0-10.0)
[2023-10-10 02:32] VITALS: BP 139/82
--- NOTE | 2023-10-10 06:54 | NUR ---
Shift Summary Pt transferred to this unit from ICU for wound on her R foot. Ortho is consulted and are considering AKA vs BKA, pt has yet to decide if she wants either of those options. She is depressed about the situation with a flat affect and when I brought it up she said she doesn't want to talk about it now. She is incontinent with male purewick in place. AOx4, on bedrest. Dressing changes daily, dressings remained CDI t/o the night. Pt slept well t/o the night, rcving IV ABX and LR@50.
[2023-10-10 08:26] VITALS: BP 141/89
--- NOTE | 2023-10-10 09:00 | NUR ---
pt laying in bed a bit drowsy but wakes enough to assess, a/ox4, cooperative with care, follows commands well, denies pain at this time, lungs are clear t/o, resp even and unlabored, no cough noted, hrr, no edema noted, has left bka, and right foot is in dressing, piv to lw a drac sites are clear and patent, infusing lr at 50ml/hr, bt x4, abd flat soft nontender, void via purwick, skin has wound to right foot, fern talavera, call light in reach.
[2023-10-10 14:31] VITALS: BP 135/92
[2023-10-10] MEDS ORDERED: Insulin Human Lispro 100 Units/ML 3ML Syringe SC SCH (17:10)
--- NOTE | 2023-10-10 18:36 | NUR ---
PT AOX4 AND COOPERATIVE OF CARE. PT HAD ALL WOUND CARE COMPLETED. R FOOT IS TRAINING PUSS COLORED FLUID. PT TOLERATED ROLLING IN BED FOR BED CHANGE. ESCORATED OPEN WOUND ON L HIP LARGE AREA. PT HAD CBG OF 414 DR GRADY NOTIFIED AND INCREASED SLIDIING SCALE ON EMAR FOR INSULIN. PT HAS CALL LIGHT WITHIN REACH WILL CONTINUE TO MONITOR.
[2023-10-10 20:05] VITALS: BP 136/94
[2023-10-10] MEDS ORDERED: Insulin Glargine-Yfgn 100 Unit/mL 3 ML SYR SC SCH (21:00)
--- NOTE | 2023-10-10 22:10 | NUR ---
BLOOD GLUCOSE 380 PT BG 380, JACKSON HAYDEN NP NOTIFIED. NO NEW ORDERS GIVEN.
[2023-10-11 02:46] VITALS: BP 139/86
[2023-10-11 05:15] LABS: BASOPHILS ABSOLUTE AUTO 0.02 K/mm3 (0.00-0.23); BASOPHILS PERCENT AUTO 0 % (0-2); EOSINOPHILS ABSOLUTE AUTO 0.57 K/mm3 (0.00-0.68); EOSINOPHILS PERCENT AUTO 6 % (0-6); Hematocrit 37.2 % (33.0-51.0); Hemoglobin 11.6 g/dL (11.5-16.0); IMMATURE GRAN ABSOLUTE AUTO 0.03 K/mm3 (0.00-0.10); IMMATURE GRAN PERCENT AUTO 0 % (0-1); LYMPHOCYTES ABSOLUTE AUTO 1.53 K/mm3 (0.84-5.20); LYMPHOCYTES PERCENT AUTO 16 % (21-46); MONOCYTES ABSOLUTE AUTO 1.26 K/mm3 (0.16-1.47); MONOCYTES PERCENT AUTO 13 % (4-13); Mean Corpuscular HGB 26.1 pg (26.0-34.0); Mean Corpuscular HGB Conc 31.2 g/dL (31.5-36.5); Mean Corpuscular Volume 84 fL (80-100); Mean Platelet Volume 11.3 fL (9.1-12.4); NEUTROPHILS ABSOLUTE AUTO 6.11 K/mm3 (1.96-9.15); NEUTROPHILS PERCENT AUTO 64 % (41-73); Platelet Count 265 K/mm3 (150-400); RDW Coefficient Variation 18.5 % (11.7-14.2); RDW Standard Deviation 55.2 fL (35.1-46.3); Red Blood Cell Count 4.44 M/mm3 (3.80-5.20); White Blood Cell Count 9.52 K/mm3 (4.00-11.30)
[2023-10-11 05:44] LABS: Calcium, Blood 7.6 mg/dL (8.5-10.1); Creatinine, Blood 0.93 mg/dL (0.40-1.00); Potassium, Blood 4.3 mmol/L (3.5-5.5)
--- NOTE | 2023-10-11 05:52 | NUR ---
SHIFT SUMMARY PT HAS RESTED OFF AND ON T/O THE NIGHT. LOST IV ACCESS THIS SHIFT, IV LATER REPLACED. IV ANTIBIOTICS INFUSED. DRESSING TO LEFT STUMP CHANGED THIS SHIFT, WOUND IS WEEPING WITH PUS LIKE DISCHARGE. DRESSING TO RIGHT FOOT INTACT. PT APPETITE IS GOOD. BLOOD SUGARS ARE IN THE 300'S, PROVIDER NOTIFIED WITH NO NEW ORDERS GIVEN. MALE PUREWICK IN PLACE AND DRAINING, PUREWICK CHANGED, ARUN CARE DONE. PLAN OF CARE REMAINS UNCHANGED T/O THE NIGHT. BED IN LOWEST POSITION, CALL LIGHT WITHIN REACH.
[2023-10-11 07:41] VITALS: BP 146/78
--- NOTE | 2023-10-11 09:00 | NUR ---
pt laying in bed mostly awake, a bit sleepy and moans in her sleep, lungs are clear t/o resp even and unlabored, no cough noted, hrr, piv to rfa site is clear and patent, btx4, abd flat soft nontender, voids via male purwick system, skin has large wound to right foot, dressing in place, intact, no drainage noted through dressing, left is bka, with dressing to stump, intact, no drainage noted, fern talavera, call light in reach.
[2023-10-11 15:33] VITALS: BP 144/95
[2023-10-11] MEDS ORDERED: Heparin Sodium,Porcine 5,000 UNIT/0.5 ML SDV SC SCH (16:00)
--- NOTE | 2023-10-11 18:07 | NUR ---
pt sleeping off and on through out the day, will keep npo after midnight for possible surgery in am, no acute changes this shift. call light in reach.
[2023-10-11 19:44] VITALS: BP 134/86
[2023-10-12 01:52] LABS: Vancomycin, Trough 16.4 ug/mL (5.0-10.0)
[2023-10-12 04:26] VITALS: BP 129/89
--- NOTE | 2023-10-12 05:25 | NUR ---
END OF SHIFT SUMMARY PT NPO AFTER MIDNIGHT FOR POSSIBLE RBKA, ALTHOUGH PT STATES DOCTORS HAVE NOT DISCUSSED SX WITH HER. DRESSINGS TO BOTH LEGS CHANGED. PUREWICK REMAINS IN PLACE, PERICARE PROVIDED. PT ENCOURAGED TO REPOSITION, REFUSING AT TIMES. IVF INFUSING, NO ACUTE EVENTS OVERNIGHT.
[2023-10-12 07:37] VITALS: BP 143/90
[2023-10-12 15:47] VITALS: BP 126/94
--- NOTE | 2023-10-12 17:24 | NUR ---
Received request for meeting with pt. Anesthesiologist apparently declining to operate on this patient. This RN had conversation with the patient, and she is agreeable to surgical intervention, as she states she realizes the infection could cause an AKA vs BKA if not done soon. Spoke to Dr. Garcia, we will re-evaluate tomorrow with anesthesiologist.
--- NOTE | 2023-10-12 18:10 | NUR ---
SHIFT SUMMARY PT CONT LEVEL OF CARE. PT NOTED TO BE NPO THIS MORNING AWAITING SURGERY FOR A BKA. PT STATED THAT SHE WAS NEVER TOLD ABOUT THE SURGERY. CASE MANAGEMENT AND PALLATIVE CARE BOTH SPOKE WITH PT THIS SHIFT AND EDUCATED HER ON THE IMPORTANCE OF THE SURGERY. THIS NURSE RECEIVED NOTIFICATION THAT PT WAS NO LONGER NPO AND THAT PT SURGERY HAD BEEN CANCELLED DUE TO PT BEING RELUCTANT AND ANESTHESIOLOGIST NOT SURE ABOUT DOING SUREGERY. JENNIFER WITH PALLATIVE CARE IS GOING TO CLARIFY AND RE EVALUATE WITH SURGERY AND ANESTHESIOLOGY TOMORROW TO DISCUSS PT OPTIONS AND PLAN. PT CONT ON LR @ 50ML/HR. PT BLE DSG WHERE CHANGED THIS SHIFT PT TOLERATED WELL WITH NO C/O.
[2023-10-12 20:48] VITALS: BP 129/84
--- NOTE | 2023-10-12 23:45 | NUR ---
ASSUMED CARE OF PT AT 2340 AND THIS RN AGREES TO NOCTE SHIFT ASSESSEMENT FINDINGS.
--- NOTE | 2023-10-13 05:50 | NUR ---
SUMMARY: PT A/OX4 AND CALLS APPROPRIATELY TO SPECIFY NEEDS. AFFECT IS FLAT AND PT IS WITHDRAWN BUT SHE'S PLEASANT AND COOPERATIVE W/CARE. SHE'S W/C BOUND AT BASLINE BUT CAN PIVOT T/F W/1PA AND TURN SCHEDULE IS MAINTAINED WHILE IN BED. R.FOOT AND L.STUMP DX'S REMAIN C/D/I. ABX RECEIVED PER EMAR AND LR INFUSES AT 50 ML/HR. PT CONT'S TO BE INCONTINENT W/PUREWIC IN PLACE. PALLIATIVE CARE BEING CONSULTED TO REEVALUATE POSSIBLE R.BKA SURGERY AND DISCUSS OPTIONS/PLAN OF CARE. NO ACUTE CHANGES, VSS/AFEBRILE. WCTM AND REPORT TO DAY RN.
[2023-10-13 06:09] VITALS: BP 132/92
[2023-10-13 07:50] VITALS: BP 136/96
[2023-10-13 15:37] VITALS: BP 142/87
--- NOTE | 2023-10-13 18:14 | NUR ---
SHIFT SUMMARY PT CONT LEVEL OF CARE WITH. CONT WITH ABT AND CONT LR @50/HR. PT REMAINS BEDREST AND NEEDING ASSISTANCE WITH REPOSITIONING X2 STAFF MEMEBERS. PT IS HAS AN ORDER TO BE NPO D/T SUPPOSE TO HAVE ABOVE THE KNEE AMPUTATION TOMORROW. DR BENITO THE SURGERON SUPPOSE TO DO PT SURGERY TOMORROW CAME AND SPOKE WITH PT AND PT NOTED TO TELL SURGERON THAT SHE DIDNT KNOW IF SHE WANTED TO HAVE SURGERY TOMORROW OR EVEN HAVE SURGERY AT ALL. PT STATED THAT SHE WANT TO TALK TO [facility] FIRST. DR BENITO SAID TO CALL HIM IN THE MORNING TO LET HIM KNOW WHAT PT FINALLY DECISION WAS ABOUT SURGERY THAT IF PT DID DECIDE TO DO SURGERY IT WOULD BE IN THE AFTERNOON. THIS NURSE CALLED AND TALKED TO DR GRADY AND GAVE HER AN UPDATE ON CONVERASTATION WITH SURGEEDU AND PT.
[2023-10-13 19:21] VITALS: BP 138/86
[2023-10-14 03:40] VITALS: BP 133/81
[2023-10-14 05:26] LABS: BASOPHILS ABSOLUTE AUTO 0.04 K/mm3 (0.00-0.23); BASOPHILS PERCENT AUTO 0 % (0-2); EOSINOPHILS PERCENT AUTO 7 % (0-6); Hematocrit 35.8 % (33.0-51.0); IMMATURE GRAN ABSOLUTE AUTO 0.03 K/mm3 (0.00-0.10); IMMATURE GRAN PERCENT AUTO 0 % (0-1); LYMPHOCYTES ABSOLUTE AUTO 1.75 K/mm3 (0.84-5.20); LYMPHOCYTES PERCENT AUTO 16 % (21-46); MONOCYTES ABSOLUTE AUTO 1.23 K/mm3 (0.16-1.47); MONOCYTES PERCENT AUTO 11 % (4-13); Mean Corpuscular HGB Conc 30.7 g/dL (31.5-36.5); Mean Corpuscular Volume 85 fL (80-100); Mean Platelet Volume 12.1 fL (9.1-12.4); NEUTROPHILS ABSOLUTE AUTO 7.06 K/mm3 (1.96-9.15); NEUTROPHILS PERCENT AUTO 65 % (41-73); Platelet Count 318 K/mm3 (150-400); RDW Coefficient Variation 19.6 % (11.7-14.2); RDW Standard Deviation 58.7 fL (35.1-46.3); Red Blood Cell Count 4.23 M/mm3 (3.80-5.20); White Blood Cell Count 10.81 K/mm3 (4.00-11.30)
--- NOTE | 2023-10-14 05:28 | NUR ---
SUMMARY: PT A/OX4, IS PLEASANT AND COOPERATIVE W/CARE AND RELAYS NEEDS WHEN STAFF IN ROOM. SHE CONT'S TO BE UNDECIDED RE:POSS R.BKA BUT SEEMS TO BE LEANING TOWARD HOSPICE AT THIS TIME. SHE'S BEEN NPO SINCE [place] IN PREPAR[place] BUT SHE REALLY WOULD LIKE TO DISCUSS OPTIONS FURTHER W/PALLIATIVE CARE TODAY TO BETTER UNDERSTAND "WHAT HOSPICE ENTAILS". SHE ALSO DESIRES CONSULTATION W/PSYCH AND REPORTED FEELING "LIKE AN IMBECILE" D/T HAVING HESITATION PROCEEDING W/SURGERY. THERAPEUTIC COMMUNICATION AND ENCOURAGEMENT PROVIDED AND PT WAS RECEPTIVE AND APPRECIATIVE. DX TO NEHA AND PAT ARE C/D/I. TURN SCHEDULE MAINTAINED. PUREWIC IN PLACE AND PT HAD XL BM VIA BEDPAN TONIGHT. LR INFUSES PER EMAR AND IV ABX WERE RECEIVED. NO ACUTE CHANGES. VSS/AFEBRILE. WCTM AND REPORT TO DAY RN.
[2023-10-14 06:01] LABS: Bun/Creatinine Ratio 36.4 (12.0-20.0); Calcium, Blood 7.8 mg/dL (8.5-10.1); Creatinine, Blood 0.8 mg/dL (0.40-1.00); Potassium, Blood 4.3 mmol/L (3.5-5.5)
[2023-10-14 07:39] VITALS: BP 139/94
[2023-10-14] MEDS ORDERED: NS 100 ML IV ONE (08:57)
[2023-10-14] MEDS ORDERED: Miconazole Nitrate 2% 85 GM PWD TOP SCH (09:00)
--- NOTE | 2023-10-14 13:19 | NUR ---
Have been kicked out of system for a while today so needed to write paper notes. 12 noon, requesting food and drink but still on NPO order, keeps changing mind for surgery or not. When claims wants hospice, is told were not sure if they qualify for hospice as there not imminent. then will agree to surgery but then "why bother." Patient check again, cont'd to make large mess, emptied male purwik canister 1200 ml, room cleanup. dropping big bags containing loose meds from outside hospital, several insulin pens on the floor and 2 med bottles. cleaned up. threw away some of the loose little white pills but mostly gave back to patient. CIERA-Wade taken and informed Nurse. As Osbaldo leaving a Spychiatry M.Edmundo entered to have a chat with the patient 12:20
[2023-10-14 15:38] VITALS: BP 140/94
--- NOTE | 2023-10-14 16:01 | NUR ---
MET WITH PATIENT WITH THE INDEPENDENT DISTRIBUTOR. DISCUSSED HOSPICE AND WHAT THEY WOULD PROVIDE. PATIENT IS AGREEABLE TO THIS PLAN. INDEPENDENT DISTRI[employer]OR WILL FOLLOW UP WITH PLANS TO START LEARNING SUPPORT SPECIALIST MEDICADE PROCESS. THERAPUTIC LISTENING PATIENT DISCUSSED STAY IN THE HOSPITAL AND PERVIOUS HOSPITILIZATIONS. PC WILL REMAIN AVALIABLE.
[2023-10-14] MEDS ORDERED: Albuterol HFA200 ACT/6.7 GM INH INH PRN (16:55)
[2023-10-14 19:28] VITALS: BP 140/92
[2023-10-15 03:13] VITALS: BP 141/87
--- NOTE | 2023-10-15 04:55 | NUR ---
SHIFT SUMMARY. PATIENT IS A&OX4. PATIENT IS ABLE TO MAKE HER NEEDS KNOWN. PATIENT HAS WICKING SYSTEM IN PLACE FOR INCONTINENCE. PATIENT IS BEDREST AT THIS TIME AND WHEEL CHAIR AT BASELINE. PATIENT C/O PAIN X2-MEDICATED FOR PAIN PER EMAR AND DRESSING CHANGE DONE. PATIENT TALKING IN HER SLEEP. PATIENT CALLS APPROPRIATELY AND IS ABLE TO MAKE HER NEEDS KNOWN. NO ACUTE CHANGES NOTED THIS SHIFT. BED IS LOCKED IN THE LOWEST POSITION WITH CALL LIGHT IN REACH. CARE IS ONGOING.
[2023-10-15 07:42] VITALS: BP 136/93
[2023-10-15] MEDS ORDERED: ARIPiprazole 5 MG Tab PO SCH (09:00)
[2023-10-15] MEDS ORDERED: Torsemide 20 MG TAB PO SCH (10:00)
[2023-10-15] MEDS ORDERED: Spironolactone 25 MG Tab PO SCH (10:00)
[2023-10-15] MEDS ORDERED: Metoprolol Succinate 25 MG TABCR PO SCH (10:00)
[2023-10-15] MEDS ORDERED: Lisinopril 5 MG Tab PO SCH (10:00)
[2023-10-15] MEDS ORDERED: HYDROcodone 5-APAP 325 TAB PO PRN (12:05)
[2023-10-15 16:17] VITALS: BP 157/91
--- NOTE | 2023-10-15 17:10 | NUR ---
NO ACUTE CHANGES, PT IS AOX4 AND COOPERATIVE OF CARE. PT TREATED FOR PAIN PER EMAR. PAIN WAS NOT IMPROVING AND DR GRADY CHANGED PAIN MED ON EMAR. PT HAD BANDAGE ON R FOOT CHANGED AND L BKA AND TOLERATED WELL. R FOOT CONTINUES TO PURULENT DRAINAGE. PT IS ABLE TO MAKE NEEDS KNOWN AND CALL LIGHT IS WITHIN REACH WILL CONTINUE TO MONITOR.
[2023-10-15 19:24] VITALS: BP 127/95
[2023-10-15 19:57] VITALS: BP 130/87
[2023-10-16 03:44] VITALS: BP 135/92
--- NOTE | 2023-10-16 05:02 | NUR ---
SHIFT SUMMARY. PATIENT DESATTING AT TIMES OF REST INTO THE LOW 80'S -WHEN AWOKEN PATIENTS SPO2 RECOVERS QUICKLY-OXIMASK APPLIED WITH 1.5L'S OF OXYGEN PATIENT MAINTAINING SPO2 >94% WITH OXIMASK. PATIENT HAS NOT COMPLAINED OF PAIN AT THIS POINT. PATIENT REPORTS THAT HE HAS DECIDED TO GO ON TO HOSPICE AND WAS UPSET D/T FAMILY TELLING A YOUNG NIECE OF HIS DECISION. PATIENT IS COOPERATIVE WITH CARE. BED IS LOCKED IN THE LOWEST POSITION WITH CALL LIGHT IN REACH. BED IS LOCKED IN THE LOWEST POSITION WITH CALL LIGHT IN REACH. CARE IS ONGOING.
[2023-10-16 07:38] VITALS: BP 135/94
[2023-10-16 15:28] VITALS: BP 146/87
--- NOTE | 2023-10-16 16:46 | NUR ---
NO ACUTE CHANGES PT CONTINUES TO BE AOX4 AND COOPERATIVE OF CARE. PT WAS DOING MORE SITTING AT THE SIDE OF THE BED TODAY. MEPELEX FOR COCCYX AREA WAS REPLACED TO DAY AND PT CLEANED UP IN THE GROIN AREA. PT HAD BANDAGE ON R FOOT CHANGED BY FUNERAL DIRECTOR/EMBALMER WITH THIS TOOTH INSPECTOR TO SUPERVISE. TREATED FOR LEG PAIN PER EMAR. CALL LIGHT WITHIN REACH WILL CONTINUE TO MONITOR.
[2023-10-17 03:47] VITALS: BP 134/92
--- NOTE | 2023-10-17 06:19 | NUR ---
SHIFT SUMMARY 58 YR F ADMITTED ON 10/08/23. DNR. NO ACUTE CHANGES THIS SHIFT. PT IS PLEASANT AND COOPERATIVE WITH CARE. MALE PUREWIK IN PLACE AND WORKING WELL. PT ASKED FOR PAIN MEDS AT BEDTIME AND HAS SLEPT FOR THE REST OF THE SHIFT. VSS AND O2 HAS MAINTAINED > 90. WILL CONTINUE TO MONITOR. BED IN LOW POSITION AND CALL LIGHT IN REACH.
[2023-10-17 08:01] VITALS: BP 147/99
[2023-10-17 15:49] VITALS: BP 135/88
--- NOTE | 2023-10-17 18:27 | NUR ---
SUMMARY- PT AAOX3 THIS SHIFT DISORIENTED TO EXACT SITUATION. BEDREST. PT GIVEN BED BATH THIS SHIFT. ALL WOUNDS CLEANSED AND RESDRESSED-SEE SHIFT ASSESSMENT FOR DETAILS. PT TURNED Q 2 HOURS. PT MEDICATED X1 THIS SHIFT FOR GENERAL PAIN. GOOD APPETITE THIS SHIFT EATING 75-100% OF ALL MEALS. PT ON RA DURING THE DAY. PT IS CALM AND COOPERATIVE WITH ALL ASPECTS OF CARE.
[2023-10-17 19:49] VITALS: BP 128/81
[2023-10-18 01:56] VITALS: BP 138/81
--- NOTE | 2023-10-18 04:32 | NUR ---
SHIFT SUMMARY 58 YR F ADMITTED ON 10/08/23. DNR. NO ACUTE CHANGES THIS SHIFT. PT REQUESTED PAIN MEDS AT BEDTIME AND HAS SLEPT FOR MOST OF THE SHIFT. SHE HAS BEEN INCONT SEVERAL TIMES THIS SHIFT. IT MAY BE A GOOD IDEA TO USE A MALE PUREWIK AT NIGHT THIS HAS BEEN EFFECTIVE IN PRIOR DAYS. ALL WOUND DRESSINGS ARE C/D/I. PT IS PLEASANT AND COOPERATIVE WITH CARE. WILL CONTINUE TO MONITOR.
[2023-10-18 07:30] VITALS: BP 136/79
[2023-10-18 15:51] VITALS: BP 140/94
--- NOTE | 2023-10-18 18:17 | NUR ---
SUMMARY- PT AAOX3-4. BEDREST. PT CALM AND COOPERATIVE WITH CARE. MEDICATED X1 THIS SHIFT FOR PAIN. NO ACUTE EVENTS THIS SHIFT. PT ON RA DURING THE DAY AND 2L VIA OXY MASK HS.
[2023-10-18 20:06] VITALS: BP 125/92
--- NOTE | 2023-10-19 03:15 | NUR ---
SHIFT SUMMARY 56 YR F ADMITTED ON 10/16/23. FULL CODE. NO ACUTE EVENTS THIS SHIFT. PT MEDICATED FOR PAIN AND SLEPT FOR MOST OF THIS SHIFT. PLEASANT AND COOPERATIVE WITH CARE. WILL CONTINUE TO MONITOR.
[2023-10-19 03:16] VITALS: BP 144/82
[2023-10-19 07:31] VITALS: BP 141/89
[2023-10-19 14:41] VITALS: BP 144/85
--- NOTE | 2023-10-19 17:59 | NUR ---
SUMMARY- NO CHANGES WITH PT THIS SHIFT. AAOX3-4. MEDICATED FOR GENERAL PAIN X1 THIS SHIFT. PT POLITELY REFUSED TO GET OOB TODAY. NO ACUTE EVENTS THIS SHIFT. PT ON RA DURING THE DAY AND 2L VIA OXY MASK WHEN SLEEPING OR HS.
[2023-10-19 20:14] VITALS: BP 142/94
[2023-10-20 03:46] VITALS: BP 140/85
--- NOTE | 2023-10-20 03:58 | NUR ---
PT RESTING QUIETLY IN BED WITH EYES CLOSED AT THIS TIME. NO C/O VOICED. WITHDRAWN. REPOSITIONED PER DR ORDERS. PULSE OX D/C'D PER DR ORDERS.
[2023-10-20 07:20] VITALS: BP 142/102
[2023-10-20 14:36] VITALS: BP 141/99
--- NOTE | 2023-10-20 18:21 | NUR ---
DAY SHIFT SUMMARY: A&Ox4. PLEASANT. COMPLACEMENT AND APATHETIC IN REGARDS TO SELF-CARE. LITTLE TO NOT PARTICIPATION IN CARE. HAS BEEN CONTINENT UP UNTIL TODAY WHEN SHE SOILED BED, ENTIRELY, AFTER HAVING HAD A BEDBATH. YAHAIRA APPLIED. CALLS APPROPRIATELY AND IS ABLE TO ADVOCATE NEEDS. REQUESTED TO STAND/PIVOT TO BEDSIDE COMMODE TODAY. BED IN LOWEST POSITION. CALL LIGHT WITHIN REACH. ALL NEEDS MET. REPORT TO ONCOMING RN.
[2023-10-20 20:20] VITALS: BP 141/103
[2023-10-20] MEDS ORDERED: Ondansetron 4 MG TAB PO ONE (20:55)
[2023-10-20 21:41] LABS: Glucose, Blood 560 mg/dL (70-99)
--- NOTE | 2023-10-20 23:33 | NUR ---
PTS HEALTHCARE STATUS AND CODE STATUS DISCUSSED WITH PATIENT AT LENGTH. IN DEPTH DISCUSSION HELD WT PTS REGARDING HEALTHCARE ISSUES CODE STATUS DISCUSSED WITH PATIENT. PT ACKNOWLEDGED UNDERSTANDING, AND STATED, "I WANT COMFORT CARE." DR. ADDISON NOTIFIED AND PTS REQUEST RELAYED TO . STATED, "LET ME READ HIS CHART." NOTIFIED OF PTS FS VALUE OF 560. AND RECENT ORDERS TO D/C SLIDDING SCALE AND INSULINE.
[2023-10-21] MEDS ORDERED: Insulin Glargine-Yfgn 100 Unit/mL 3 ML SYR SC SCH
[2023-10-21 03:00] VITALS: BP 153/101
--- NOTE | 2023-10-21 04:26 | NUR ---
2130: SEE PREVIOUS NOTE. 2200: MD SARAVIA STATED COMFORT CARE IS ALREADY ORDERED. 2230: CHARGE NURSE, JOAN VALENTIN, NOTIFIED OF STATUS OF COMFORT CARE ORDER. NOTIIFED OF NO COMFORT CARE ORDER. STATED PT HAS ADEQUATE ORDER TO CARE THROUGH THE NIGHT. 2300: MD BROWN REMINDED OF PTS WISHES, GLUCOSE STATUS, AND NEEDS. DR. CAMPBELL AT BEDSIDE. PT WISHES REVIEWED WITH PT. PT WISHES EXPRESSED AT BEDSIDE WITH AND THIS RN. . VERBAL ORDER FOR COMFORT CARE RECEIVED AT PT BEDSIDE FROM DR CAMPBELL.
--- NOTE | 2023-10-21 04:37 | NUR ---
MD NOTIFIED OF PTS WISHES. ORDERS RECEIVED. PT REPOSITIONED THROUGH THE NIGHT. BARRIER CREAM APPLIED. PURWICK PLACED. PT RESTLESS AT TIMES. RESTING WITH EYES CLOSED. PT MONITORED FREQUENTLY. INSULIN GIVEN PER DR ORDERS.
[2023-10-21] MEDS ORDERED: Insulin Human Lispro 100 Units/ML 3ML Syringe SC SCH (07:30)
[2023-10-21 07:35] VITALS: BP 136/95
--- NOTE | 2023-10-21 13:25 | NUR ---
[facility] care visit conducted. Patient is lying in bed and alert. He immediately expresses is frustration about not being on comfort care and having to provide "finger pricks for his sugar levels." She states her discontent about having to defend her "refusal of surgery." She states that she "wants out" as quickly as possible and that she feels as if she is not being heard and that he feels he is being blamed for his poor health. I speak about the hospitals role to follow her wishes and that we want to make sure her medical issues are not effecting her ability to think and that she clearly understands all the risks and can articulate how those risks will effect his life expectancy and quality of life. She tells me that she has already told is grandchildren about her shortened life and that she is at peace with it. I provided therapeutic listening, gentle vocational rehabilitation counselor and prayer. Patient responded well and voiced appreciation for the visit and the prayer.
--- NOTE | 2023-10-21 13:26 | NUR ---
PATIENT CALLED THIS RN TO BEDSIDE REQUESTING TO DISCUSS COMFORT MEASURES SHE DOES NOT UNDERSTAND WHY SHE, AGAIN, IS HAVING HER BLOOD SUGARS CHECKED AND TREATED WITH INSULIN. SHE WAS UNDER THE IMPRESSION SHE HAD ALREADY DETERMINED AND DISCUSSED HER DECISION TO DECLINE FURTHER TREATMENT FOR CHRONIC ILLNESSES, TREATING ONLY PAIN AND DISCOMFORT. DISCUSSED WITH PALLIATIVE CARE NURSE, DAVID, WHO WILL PASS MESSAGE TO PRIMARY PALLIATIVE CARE NURSE FOR THIS PT'S CASE TO PROCESS COMFORT CARE ORDERS AND DISCUSS LOGISTICS WITH PATIENT.
[2023-10-21 15:04] VITALS: BP 136/100
--- NOTE | 2023-10-21 15:49 | NUR ---
Pt lying in bed for this visit. Recently changed to comfort care, and insulin has been discontinued, along with blood sugar checks at her request. She remains pleasant and cooperative, and makes her needs and wants known.
--- NOTE | 2023-10-21 17:56 | NUR ---
PATIENT REQUESTING BREATHING TREATMENT. CALL TO RT AND REQUESTED.
--- NOTE | 2023-10-21 17:57 | NUR ---
MESSAGE FROM DAMI REQUESTING CALL BACK TO DISCUSS PATIENT CARE. PER PATIENT, OKAY TO SPEAK WITH DAMI. CALLED BACK AND DID NOT RECEIVE ANSWER. [phone].
--- NOTE | 2023-10-21 18:10 | NUR ---
CALL BACK FROM PATIENT FRIEND, DAMI, WHO PROVIDED PASSWORD "WARREN". HAS QUESTIONS REGARDING NAVIGATING COMFORT CARE FOR JERRELL. LET HER KNOW WE HAD DISCUSSIONS WITH PALLIATIVE CARE TODAY AND HAVE THIS IN MOTION.
--- NOTE | 2023-10-21 18:41 | NUR ---
DAY SHIFT SUMMARY: A&Ox4. PLEASANT AND COOPERATIVE WITH CARE. CALLS APPROPRIATELY AND IS ABLE TO ADVOCATE NEEDS EFFECTIVELY. BEDREST WITH 1-2PA FOR CHANGES. BLOOD SUGAR CHECKS, INSULIN AND SOME MEDICATIONS DCd TODAY IN LIGHT OF RECEIPT OF COMFORT CARE ORDERS. MEDICATING PER EMR FOR PAIN AND TO MAINTAIN COMFORT. PUREWICK IN PLACE WITH ATTENDS. 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 SPO2 DOWN TO MID-TO-HIGH 80s THIS AFTERNOON WHEN SHE DECLINED TO USE OXYGEN MASK WHILE SLEEPING. BED IN LOWEST POSITION. CALL LIGHT WITHIN REACH. ALL NEEDS MET. REPORT TO ONCOMING RN.
--- NOTE | 2023-10-22 05:45 | NUR ---
END OF SHIFT SUMMARY PT REMAINS ON COMFORT CARE. MEDICATED FOR PAIN TO RLE. PRN O2 VIA NC PER PT COMFORT. PUREWICK CHANGED. NO ACUTE EVENTS OVERNIGHT.
[2023-10-22 07:16] VITALS: BP 148/91
[2023-10-22 15:48] VITALS: BP 143/106
--- NOTE | 2023-10-22 16:52 | NUR ---
SHIFT SUMMARY: PATIENT HAS REMAINED IN BED THE ENTIRE SHIFT. SHE DOES MOVE AROUND WITHIN THE BED INDEPENDENTLY; MAKES HER NEEDS KNOWN. SHE WAS GIVEN A BED BATH AND WOUNDS WERE TREATED AND DRESSED TODAY WITHOUT DIFFICULTY. PATIENT APPEARS COMFORTABLE AND PAIN IS MANAGED WITH ORAL HYDROCODONE. DID ASK PALLATIVE ABOUT PATIENT GETTING COMFORT CARE ORDERS WHILE BEING ON COMFORT CARE AND THEY CALLED DR. NEELY AND INQUIRED AND GOT PERMISSION TO ADD COMFORT CARE ORDERS. NO NEW ORDERS AT THIS TIME YET. DR. CONWAY CAME AND CONSULTED PATIENT TODAY AND STARTED THE PATIENT ON A NEW MED THAT WILL START THIS EVENING AND IN HIS NOTE DISCUSSED POSSIBLE AMPUATION STILL. PATIENT IN BED, CALL LIGHT WITHIN REACH, BED ALARM ON, NO SIGNS OR SYMPTOMS OF DISTRESS PLAN OF CARE ONGOING. COMFORT CARE/HOSPICE VERSUS AMPUTATION?
[2023-10-22] MEDS ORDERED: Morphine Sulfate 20 MG/1ML 1 ML Oral Syringe SL PRN (17:10)
--- NOTE | 2023-10-22 17:10 | NUR ---
Pt request better pain control, she is on comfort care. Dr. Munoz agreed to beginning roxanol 5-10mg every 2 hrs as needed for pain or air hunger.
[2023-10-22] MEDS ORDERED: Mirtazapine 15 MG Tab PO SCH (21:00)
--- NOTE | 2023-10-23 05:14 | NUR ---
END OF SHIFT SUMMARY PT REMAINS ON COMFORT CARE. ARUN/INCONTINENCE CARE COMPLETED. PT REPOSITIONED. DENIED PAIN/DISCOMFORT. NO ACUTE EVENTS OVERNIGHT.
--- NOTE | 2023-10-23 15:42 | NUR ---
SHIFT SUMMARY: NO EVENTS OR CHANGES WITH THE PATIENT THROUGHOUT THE SHIFT. SHE HAS REMAINED IN BED, EATING/DRINKING, USING THE PURWICK SYSTEM, AND HAD A BOWEL MOVEMENT ON THE BEDPAN. TAKING MEDICATION FOR PAIN NEEDED. SHE IS IN BED, CALL LIGHT WITHIN REACH, BED ALARM ON, NO SIGNS OR SYMPTOMS OF DISTRESS, PLAN OF CARE ONGOING.
--- NOTE | 2023-10-24 06:25 | NUR ---
END OF SHIFT SUMMARY PT REMAINS ON COMFORT CARE. REPOSITIONED FOR COMFORT PT ALLOWED. NEB TX X1 GIVEN PER PT REQUEST, C/O SOB/COUGHING. PT DECLINED PAIN MEDS, DECLINED WOUND CARE BUT ALLOWED ARUN CARE. NO ACUTE EVENTS OVERNIGHT.
[2023-10-24] MEDS ORDERED: Ondansetron 4 MG TAB PO PRN (08:17)
[2023-10-24] MEDS ORDERED: Insulin Glargine-Yfgn 100 Unit/mL 3 ML SYR SC SCH (13:00)
--- NOTE | 2023-10-24 14:30 | NUR ---
Pt resting off and on. Stuggling with poor appetite and tolerance of food or fluids. States it comes right back up. Therputic time with patient. Got her a an afgan from the [employer]. We spent time talking about one our mother and granmothers made. Did some theputic touch and reassurance that she is safe and cared for here. Gave pt lemon pop and some wipes and showed her how to sooth mouth and expectorate to avoid vomiting. Will follow up on care needs. Pt kps score is 30%.
--- NOTE | 2023-10-24 15:50 | NUR ---
Pt resting review of medications and symptoms with nursing.
--- NOTE | 2023-10-24 17:42 | NUR ---
SHIFT SUMMARY: PATIENT ON COMFORT CARE. THIS MORNING PATIENT HAD EPISODE OF EMESIS AND NAUSEA. PATIENT N/V TREATED PER EMAR. NO FURTHER COMPLAINTS OF NAUSEA. PATIENT RECEIVED PRN NORCO FOR PAIN AT 1115 SEE EMAR. PATIENT RESTARTED ON LONG ACTING INSULIN, CBG >500 AWAITING RESULT TO BE CONFIRMED BY LABRATORY. PATIENT RESTING, BED IN LOWEST POSITION, AND CALL LIGHT WITHIN REACH.
--- NOTE | 2023-10-24 17:58 | NUR ---
THIS MECHANICAL MAINTENANCE SUPERVISOR HAS REVIEWED AND AGREES WITH ALL NOTES AN ASSESSMENTS BY LUDA HERNANDEZ.
--- NOTE | 2023-10-24 18:14 | NUR ---
CHANGED DRESSING TO RLE. DRESSING TO LEFT STUMP CDI.
--- NOTE | 2023-10-24 21:05 | NUR ---
PT IS INTERESTED IN SETTING UP A LIVING WILL. WILL PASS ALONG TO DAY SHIFT RN.
--- NOTE | 2023-10-25 05:10 | NUR ---
SHIFT SUMMARY NOC PT A/O X 4. PLEASANT AND COOPERATIVE WITH CARE. ON COMFORT CARE. NO ACUTE CHANGES TO REPORT. PT RLE PAIN BEING MANAGED PER EMAR. DRESSING ON RLE AND L BKA C/D/I. PUREWICK IN PLACE FOR INCONTINENCE. NO C/O OF N/V SINCE RECEIVING ZOFRAN AT END OF DAY SHIFT. PT HAD VISITOR AFTER SHIFT CHANGE WHO CHATTED FOR ROUGHLY AN HOUR WITH PT. PT AWAITING MEDICAID INSURANCE APPROVAL FOR LTC PLACEMENT AT [facility]. PT ON CONTACT ISOLATION FOR MRSA IN WOUND. PT CURRENTLY RESTING WITH BED IN LOWEST POSITION, AND CALL LIGHT WITHIN REACH.
--- NOTE | 2023-10-25 18:43 | NUR ---
PATIENT ORIENTED TO SELF, LOCATION, AND SITUATION. PATIENT SHOWING SIGNS OF INCREASED CONFUSION THROUGHOUT THE DAY. PATIENT REMOVED PUREWICK TWICE TODAY AND TRYING TO PLACE TUBE IN CUP. PATIENT NO LONGER HAS PUREWICK, WEARING ATTENDS. ATTEMPTED SELF-TRANSFER. BED ALARM IS ON, BED IN LOW POSITION, AND CALL LIGHT WITHIN REACH.
--- NOTE | 2023-10-25 18:48 | NUR ---
THIS COURT REGISTRY OFFICER HAS REVIEWED AND AGREES WITH ALL NOTES AND ASSESSMENTS BY LUDA HERNANDEZ.
--- NOTE | 2023-10-26 07:36 | NUR ---
SYSTEMS MGR SUMMARY PT IS ORIENTED X 4 SOMETIMES AND SOMETIMES A BIT CONFUSED. WAXES AND WANES. WHILE ORIENTED X 4 PT EXPRESSED THAT SHE HAS BEEN IN SEVERE PAIN FOR MANY MONTHS AND WISHES TO BE MORE COMFORTABLE IN HER LAST DAYS. WE DISCUSSED HER OPTIONS AND SHE WANTED TO START TRYING ROXANOL. SHE WAS VERY APPRECIATIVE OF THE PAIN RELIEF IT PROVIDED HER. WE OFFERED REPOSITIONING, NUTRITION AND FLUIDS AT LEAST EVERY 2 HOURS AND PROVIDED 1-1 COMFORT FREQUENTLY.
[2023-10-26 15:19] VITALS: BP 127/93
--- NOTE | 2023-10-26 16:07 | NUR ---
PT AOX3 AND COOPERATIVE OF CARE. PT PASSED ON HAVING DRESSING CHANGE WILL HAVE PUBLIC INFORMATION OFFICER ATTEMPT CHANGE THIS EVENING. PT RESTING COMFORTABLY IN BED AT THIS TIME WILL CONTINUE TO MONITOR. INCONTENT HAS ATTENDS IN PLACE. BED ALARM IS SEO TEAM LEAD LIGHT WITHIN REACH.
[2023-10-26] MEDS ORDERED: Insulin NPH 100 Unit / ML 10ML Vial SC ONE (17:00)
--- NOTE | 2023-10-27 07:02 | NUR ---
CREW FOREMAN SUMMARY PT HAD A COMFORTABLE NIGHT. SHE ASKED FOR PAIN MEDS WHEN SHE WAS PAINFUL AND SHE APPRECIATES HAVING BETTER PAIN CONTROL THAN SHE HAS HAD IN A LONG TIME. SHE ATE SEVERAL SNACKS AND DRINKS. NO ISSUES OVERNIGHT.
[2023-10-27 15:49] VITALS: BP 143/94
--- NOTE | 2023-10-27 18:38 | NUR ---
SHIFT SUMMARY PT IS A&O X3. PT ON COMFORT CARE. PT ADMITTED FOR OPEN WOUND OF R FOOT. NO DRAINAGE AND OPEN TO AIR. PT USES URINAL TO VOID. PT REPORTS PAIN THROUGH SHIFT. PT STATES PAIN IN LOWER EXTREMITY. PT STATES PAIN IS A 7 ON A PAIN SCALE. PT PAIN MANAGED WITH EMAR WITH ALTERNATING ROXYNOL AND NORCO. PT CALLS APPROPRIATELY. PLAN IS TO DISCHARGE ON HOSPICE.
[2023-10-27 19:41] VITALS: BP 136/98
[2023-10-27] MEDS ORDERED: Morphine Sulfate 30 MG TabCR PO SCH (21:00)
--- NOTE | 2023-10-28 05:15 | NUR ---
TREATED PAIN PER EMAR. ONE EPISODE OF EMESIS, PT STATED THIS IS A CHRONIC ISSUE RELATED TO RUPTURED ESOPHAGUS, PT CONFUSED, NON SENSICAL CONVERSATION. WOUND CARE COMPLETED THIS SHIFT. MEPILEX REMOVED FROM COCCIX TO ALLOW SKIN TO DRY. TURNED Q 2HRS USE OF PILLOW TO SUPPORT BLE AND HIPS. PT IS ABLE TO MAKE NEEDS KNOWN, USE OF URINIAL IN BED, DECLINED TO GET OUT OF BED OR DANGLE FEET.
[2023-10-28 07:38] VITALS: BP 145/106
[2023-10-28 15:02] VITALS: BP 139/94
--- NOTE | 2023-10-28 15:44 | NUR ---
Spiritual care visit conducted. 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 She had an episode of vomitting which delayed the conversation for a bit. Then she shared several sound bites of her playing in a band called [employer] and the [employer]. She talked about highlights of her life and some of the pain of missing her grandchildren. She tells me that some friends and family will be coming next week and that she is excited to visit with. I provided therapeutic listening, gentle work counselor and prayer. Patient responded well and showed signs of greater peace.
[2023-10-28] MEDS ORDERED: Ondansetron 4 MG SoluTab MM PRN (18:15)
[2023-10-28] MEDS ORDERED: Mag Hydrox/AL Hydrox/Simeth 30 ML UDC PO PRN (18:15)
--- NOTE | 2023-10-28 19:38 | NUR ---
1530- DRESSING CHANGED TO BLE. R FOOT WITH OPEN ULCERATION, APPLIED MOIST TO DRY. LBKA APPLIED SM MOIST TO 1.5CM AREA OPEN AREA, THE REST ABD, KERLEX TO SECURE.
--- NOTE | 2023-10-28 19:42 | NUR ---
SUMMARY- PT ALERT AND ORIENTED, EXPRESSES NONSENCICAL IDEAS AT TIMES "I HAVENT HARVESTED MY MAGICAL BEANS", FROM OUT OF THE BLUE. PT STATES PAIN IN RLE, MEDICATED WITH [id number] APPROX Q4 WITH GOOD RELEIF OF DISCOMFORT, ALONG WITH MS CONTIN IN AM. PT DECLINED HER TORSOMIDE THIS AM AFTER VISUALIZING HER GROIN AND STATES IT ISN'T SWOLLEN AND DOESNT NEED IT. BUT REQUISTED SPIRONOLACTONE. PT HAD 3 EPISODES OF SPASMS WHILE COUGHING THAT TURNED INTO EMESIS, PT DENIED NAUSEA AND WAS ABLE TO EAT AFTER THESE EPISODES. OBTAINED MAALOX AND ZOFRAN PRN, ADMIN A DOSE IN PM THAT SEEMED HELPFUL.
[2023-10-28] MEDS ORDERED: Morphine Sulfate 30 MG TabCR PO SCH (21:00)
--- NOTE | 2023-10-29 05:34 | NUR ---
SHIFT SUMMARY PT A&Ox3 AND PLEASANT. NO ACUTE CHANGES. PT HAD ONE EPISODE OF EMESIS D/T COUGHING. MEDICTED WITH MAALOX WITH GOOD EFFECT. MEDICATED FOR PAIN PER EMAR. PT ABLE TO SIT UP AT SIDE OF BED UNASSISTED. NUTRITIONAL DRINKS GIVEN PER PT REQUEST. DRESSINGS ON BLE REMAIN C/D/I. BED IN LOWEST POSITION AND CALL LIGHT IN REACH.
[2023-10-29 13:27] VITALS: BP 137/83
[2023-10-29] MEDS ORDERED: Morphine Sulfate 30 MG TabCR PO SCH (18:00)
--- NOTE | 2023-10-29 18:34 | NUR ---
REPORT RECEIVED VERIFIED. PT A/O VSS STARTED THE MORNING OFF BEING VERY NAUSEAS AND VOMITING ABOUR 300 MLS WHICH APPARENTLY IS CHRONIC FOR THE PT. DRESSING IS CLEAN DRY INTACT AND CHANGED PER ORDERS, PT SLEPT MOST OF THE DAY AND HAD LITTLE COMPLAINTS WAS ABLE TO MAKE NEEDS KNOWN.
--- NOTE | 2023-10-30 05:06 | NUR ---
SHIFT SUMMARY PT A&Ox3 AND COOPERATIVE OF CARE. MEDICATED PER EMAR FOR PAIN. PT HAD SEVERAL EPISODES OF COUGHING THAT CAUSED PT TO VOMMIT. ODT ZOFRAN GIVE BUT DID NOT HAVE MUCH EFFECT. PT SLEPT VERY LITTLE TONIGHT. NO ACUTE CHANGES. BILATERAL DRESSING C/D/I. BED IN LOWEST POSITION AND CALL LIGHT IN REACH.
[2023-10-30] MEDS ORDERED: Morphine Sulfate 15 MG TABCR PO SCH (08:00)
[2023-10-30] MEDS ORDERED: Mag Hydrox/AL Hydrox/Simeth 30 ML UDC PO PRN (13:10)
[2023-10-30] MEDS ORDERED: Omeprazole 20 MG CapCR PO SCH (14:00)
--- NOTE | 2023-10-30 19:36 | NUR ---
SHIFT SUMMARY PATIENT A/OX1-2 THIS SHIFT. PATIENT COMPLAINING OF PAIN TO LEFT STUMP AND RIGHT FOOT, SCHEDULED MEDICATIONS EFFECTIVE IN PAIN MANAGEMENT TODAY. PATIENT WITH ONE EPISODE OF EMESIS AND NAUSEA THIS AFTERNOON, MEDICATED WITH MAALOX AND ZOFRAN PER APR. HAD LARGE HARD BOWEL MOEVEMENT THIS AFTERNOON WELL. PATIENT WITH INTERMITTENT CONFUSION AND DISORIENTATION, BELIEVED SHE WAS ON AN AIRPLANE THIS MORNING AND STATED SHE WANTED TO CALL 911 FOR HELP BUT WAS ABLE TO BE REORIENTED WITHOUT AGITATION. INTERMITTENTLY HESITANT TO [employer]UST STAFF MEMBERS. WOUND CARE PROVIDED PER ORDERS, DRESSINGS CHANGED TODAY. NO OTHER CONCERNS AT THIS TIME.
--- NOTE | 2023-10-31 04:07 | NUR ---
SHIFT SUMMARY 58 YR F (AMAB) ADMITTED ON 10/08/23. DNR, COMFORT CARE. NO ACUTE CHANGES THIS SHIFT. NO C/O N/V AND ONLY WANTED PAIN MEDS AT BEDTIME. PT WAS TEARFUL THIS SHIFT STATING THAT SHE WAS WORRIED SHE WAS GOING TO BE "DUMPED" WITH NOWHERE TO GO. PT WAS ASSURED THAT FINDING PLACEMENT FOR HER WAS IN THE WORKS. SHE STATED THAT SHE FELT BETTER KNOWING THIS. SHE HAS INTERMITTENT BOUTS OF CONFUSION WHEN SHE ASKS WHERE SHE IS AND WHY. AT OTHER TIMES SHE CAN SAY WHAT FACILITY SHE IS IN WELL THE CITY AND STATE. WOUND DRESSINGS ARE C/D/I. BED IN LOW POSITION AND CALL LIGHT IN REACH. WILL CONTINUE TO MONITOR.
[2023-10-31 09:02] VITALS: BP 127/104
--- NOTE | 2023-10-31 18:28 | NUR ---
PATIENT A/O X2-3, COMMUNICATION NONSENSICAL AT TIMES. REPORTS PAIN CONTROLLED WITH SCHEDULED MS CONTIN AND NORCO FOR BREAKTHROUGH PAIN. DRESSING TO RLE REMAINS C/D/I. SKIN TO BUTTOCKS RED/EXCORITATED, KEEPING DRY AND APPLYING BARRIER CREAM TO PROTECT. BREATHING EVEN AND UNLABORED, ON RA. VOIDNG IN URINAL. AWAITIING GROUP HOME PLACEMENT.
--- NOTE | 2023-11-01 02:42 | NUR ---
SHIFT SUMMARY 58 YR F (AMAB) ADMITTED ON 10/08/23. DNR, COMFORT CARE. NO ACUTE CHANGES THIS SHIFT. PT WAS UP TO BEDSIDE COMMODE AND HAD A LARGE BM. SHE IS A VERY HEAVY 2 PERSON ASSIST. SHE HAS BEEN PLEASANT AND COOPERATIVE WITH CARE AND HAS BEEN WILLING TO HELP REPOSITION HERSELF AND FOLLOW INSTRUCTIONS.
[2023-11-01 07:54] VITALS: BP 172/103
--- NOTE | 2023-11-01 18:33 | NUR ---
NO ACUTE CHANGES THIS SHIFT. DRESSINGS CHANGED TO BLE. PAIN CONTROLLED WITH SCHEDULED MS CONTIN AND NORCO FOR BREAKTHROUGH. REDNESS TO BUTTOCKS IMPROVING WITH Q2 HOUR TURNS AND BARRIER CREAM. VOIDING IN URINAL. CONTINUES TO AWAIT SNF CARE PLACEMENT.
--- NOTE | 2023-11-01 20:14 | NUR ---
PT REPORTED FEELING THAT HER BLOOD SUGAR IS LOW. BLOOD SUGAR READING WAS 42. PT REQUESTED APPLE JUICE AND CRACKERS. PT COHERENT, ABLE TO MAKE NEEDS KNOWN. DISCUSSED RECHECKING BLOOD SUGAR IN HALF AN HOUR, PT AGREEABLE AND DENIES ANY OTHER NEEDS AT THIS TIME.
--- NOTE | 2023-11-01 22:03 | NUR ---
CALLED HOSPITALIST AND DISCUSSED PT'S LOW BLOOD SUGARS. WILL RECHECK BLOOD SUGAR AT 2200. HOSPITALIST GAVE VERBAL ORDER TO OFFER PT 1 MG OF GLUCAGON IM IF BLOOD SUGAR REMAINS BELOW 50 AFTER PROVIDED SNACKS. ALSO RECEIVED VERBAL ORDER TO CONFIRM WITH BLOOD DRAW IF PT IS AGREEABLE AND BLOOD SUGAR REMAINS LOW. PT'S BLOOD SUGAR IS 44. OFFERED GLUCAGON, PT AGREEABLE.
[2023-11-01 22:53] LABS: Glucose, Blood 40 mg/dL (70-99)
[2023-11-01] MEDS ORDERED: Glucagon 1 MG/KIT VIAL IM ONE (23:00)
[2023-11-01 23:03] LABS: Anion Gap 11 mmol/L (3-11); Blood Urea Nitrogen 28 mg/dL (8-24); Bun/Creatinine Ratio 26.7 (12.0-20.0); CO2, Blood 30 mmol/L (21-32); Calcium, Blood 8.3 mg/dL (8.5-10.1); Chloride, Blood 104 mmol/L (98-108); Creatinine, Blood 1.05 mg/dL (0.40-1.00); Glomerular Filtration Rate 62 (60-); Potassium, Blood 3.4 mmol/L (3.5-5.5); Sodium, Blood 142 mmol/L (136-145)
[2023-11-02] MEDS ORDERED: [UNRECOGNIZED DRUG - OTHER] PO PRN (03:30)
[2023-11-02] MEDS ORDERED: Dextrose 50% 50 ML Vial IV ONE (04:40)
--- NOTE | 2023-11-02 05:13 | NUR ---
SHIFT SUMMARY: SUMAN IS A&OX3 WITH SOME INTERMITTENT CONFUSION NOTED. PT'S BLOOD SUGAR HAS BEEN LOW THE MAJORITY OF THE SHIFT, AFTER D 50% PT'S BLOOD SUGAR 90. PT DID HAVE AN EPISODE OF EMESIS, APPROX 400 ML. PT HAS BEEN USING THE URINAL WITHOUT DIFFICULTY, TOLERATING PO INTAKE PRIOR TO EPISODE OF EMESIS, AND ABLE TO TURN AND REPOSITION SELF IN BED. DRESSING CHANGED TO LEFT STUMP, STUMP SOCK ADDED IN HOPES OF KEEPING DRESSING IN PLACE. IV PLACED TO R WRIST, PATENT. NO BM THIS SHIFT. SHE IS LYING IN BED WITH THE CALL LIGHT IN REACH, BED IN LOWEST POSITION. ELECTRIC WHEELCHAIR AND PROSTHETIC LEG IN PT'S BATHROOM. WILL GIVE REPORT TO DAY SHIFT RN.
[2023-11-02 09:13] VITALS: BP 131/97
--- NOTE | 2023-11-02 16:08 | NUR ---
Spiritual care visit conducted. Patient tells me about the complications he has felt over the last couple of days, one being that he was certain that he was in [place]. He expresses gratitude for having family visiting and has hopes for things going more smoothly as time goes on. I provided therapeutic listening and a calming presence. Patient repsponded well
--- NOTE | 2023-11-02 17:18 | NUR ---
SHIFT SUMMARY PT ON COMFORT CARE. GETTING SCHEDULED PAIN MEDS. DENIES NEED FOR ANYTHING BETWEEN DOSES. PT VISITED BY HER FRIENDS FROM OUT OF TOWN TODAY. INSULIN DCED BY DR. NOLEN D/T HYPOGLYCEMIA OVERNIGHT. AWAITING PLACEMENT FOR HOSPICE. OTHERWISE DENIES NEEDS AT THIS TIME.
--- NOTE | 2023-11-03 06:36 | NUR ---
SHIFT SUMMARY: SUMAN IS A&0X3. SHE REPORTS ADEQUATE PAIN MANAGEMENT WITH MEDICATIONS PER APR. DRESSING TO RIGHT FOOT CHANGED THIS SHIFT. SHE IS USING THE URINAL WITHOUT DIFFICULTY, IS ABLE TO MOVE INDEPENDENTLY IN BED. SHE HAS RESTED QUIETLY WITH HER EYES CLOSED FOR A SIGNIFICANT PORTION OF THE SHIFT. SHE IS LYING IN BED WITH THE CALL LIGHT IN REACH. WILL GIVE REPORT TO DAY SHIFT RN.
--- NOTE | 2023-11-03 15:45 | NUR ---
Spiritual care visit conducted. Patient tells me about her friends, Chris and Leatha, visiting and how encouraging it has been that they flew in to see her. The friends come into the pt's rm while we are talking and after some casual conversation, Leatha asks to talk to me in private. Chris goes with the patient down to the cafeteria and Leatha and I stay in the rm. She shows me the new clothes they bought for the pt. She then explains about their efforts to convince the patient to have the surgery that could prolong her life and more importantly to help her want to live and focus on the many good reasons to live. She also shares her concerns about how the patient will behave and mentally cope after they leave. Leatha expresses her hopes for extra support for the patient tomorrow. I assure her of that efforts will be made to support and encourage the patient.
--- NOTE | 2023-11-03 18:15 | NUR ---
SHIFT ASSESSMENT: PT AOX4 AND IN HIGH HOPES. HAD FRIENDS COME FROM OUT OF TOWN TO VISIT. MOVED INTO POWERCHAIR WITH MINIMAL ASSIST. ATE A LOT WITH FRIENDS AND WENT AROUND THE HOSPITAL. SEEMS IN GOOD HOPES AND SPIRITS. ATE WELL AND FOOD TOLERATED WELL. ALSO TRANSFERED TO [facility] AND HAD A BM. PT IN GOOD HOPES AND PLEASANT AFFECT. FOLLOWS COMMANDS, BED IN LOWEST POSITION, CALL LIGHT IN REACH.
--- NOTE | 2023-11-04 05:16 | NUR ---
SHIFT SUMMARY: SUMAN IS A&OX3. NO ACUTE EVENTS OVERNIGHT. SHE WAS ABLE TO GET UP TO THE BSC WITH 2-PERSON HEAVY ASSIST, WITH PROSTHESIS IN PLACE. DRESSING TO RIGHT FOOT CHANGED THIS SHIFT. PT DID HAVE A BM THIS SHIFT. SHE IS TOLERATING PO INTAKE WELL AND REPORTS ADEQUATE PAIN MANAGEMENT WITH MEDICATIONS PER MAR. SHE IS ABLE TO MOVE HERSELF TO SITTING UP AT THE SIDE OF THE BED AND THEN BACK TO LYING INDEPENDENTLY, CAN ROLL IN BED INDEPENDENTLY. SHE IS LYING IN BED WITH THE CALL LIGHT IN REACH, BED IN LOWEST POSITION. WILL GIVE REPORT TO DAY SHIFT RN.
--- NOTE | 2023-11-04 14:30 | NUR ---
Spiritual care visit conducted. We had a lengthy visit today. Patient was clear minded and very raw and open today. The patient was tearful at times. She talked about her rough childhood, her early yrs of marriage and kids, and her regret that she hurt many people in those immature learning yrs. As she goes through talking about coming out and the hard life that she has lived the story is full of pain but also overcoming challenges. She talks about the by suicide of her dtr, 3mos ago, and how that event has taken the wind out of her sail. The patient talks about the spiritual distress she is feeling. We unpack the stories and the distress. I heard confession, and ministered to the deeper questions.. I provide theological insights, therapeutic listening and prayer. Patient responded well and showed signs greater peace. I will continue to remain avialble.
[2023-11-04 15:34] VITALS: BP 147/89
--- NOTE | 2023-11-04 17:33 | NUR ---
PT HAS BEEN AO AN COOPERATIVE OF CARE TODAY. PT IS MAINTAING WELL AT THIS TIME. PT HAD R FOOT BANDAGE CHANGED AND THE BANDAGE REPLACE IN L STUMP SOCK. PT TOLERATED WELL. TREATED FOR PAIN PER EMAR. WILL CONTINUE TO MONITOR.
--- NOTE | 2023-11-05 04:29 | NUR ---
CONTACTED DR MATT, INFORMED HIM OF PATIENT CONSTIPATION. HER WILL BEE PUTTING IN ORDERS FOR BOWEL CARE.
[2023-11-05] MEDS ORDERED: Glycerin Adult Supp 1 EA PR PRN (04:35)
[2023-11-05] MEDS ORDERED: Polyethylene Glycol 3350 17 gm PO PRN (04:35)
[2023-11-05] MEDS ORDERED: Docusate Sodium/Senna 1 Tab PO PRN (04:35)
--- NOTE | 2023-11-05 05:30 | NUR ---
SHIFT SUMMARY PATIENT WAS AWAKE MOST OF THE NIGHT. DID NOT REQUEST ANY PAIN MED. DID HAVE C/O CONSTIPATION, CALLED DR MATT FOR ORDERS. GIVEN PRN SEN[place], MIRALAX ND SUPPOSITORY. WITH GOOD RESULTS.
--- NOTE | 2023-11-05 15:29 | NUR ---
PATIENT WITH EPISODE OF EMESIS. NO FOOD INTAKE TODAY, ONLY FLUIDS. VOMIT WITH SOUR ODOR AND VISCIOUS. ~100cc. ONDANSETRON ODT ADMINISTERED.
--- NOTE | 2023-11-05 17:51 | NUR ---
END OF SHIFT SUMMARY: A&Ox4. PLEASANT AND COOPERATIVE WITH CARE. CALLS APPROPRIATELY AND IS ABLE TO ADVOCATE NEEDS EFFECTIVELY. BEDREST. BOWEL MOVEMENT TODAY USING BEDPAN. NO FOOD INTAKE TODAY AND DID EXPERIENCE SEVERE NAUSEA AND VOMITING TODAY; MEDICATED PRN ONDANSETRON ODT. REQUESTED BREATHING TREATMENT x3 TODAY. NO CHANGES TO PLAN OF CARE AT THIS TIME. BED IN LOWEST POSITION. CALL LIGHT WITHIN REACH. ALL NEEDS MET. REPORT TO ONCOMING RN.
--- NOTE | 2023-11-06 05:17 | NUR ---
SHIFT SUMMARY. SLEPT BETTER TONIGHT. HE DECLINED 2100 DESENEX POWDER, FELT IT IS HEALING.
[2023-11-06] MEDS ORDERED: Torsemide 20 MG TAB PO ONE (11:20)
--- NOTE | 2023-11-06 19:12 | NUR ---
A&Ox4. PLEASANT AND COOPERATIVE WITH CARE. CALLS APPROPRIATELY AND IS ABLE TO ADVOCATE NEEDS EFFECTIVELY. BEDREST. BOWEL MOVEMENT TODAY USING BEDPAN. NO FOOD INTAKE TODAY AND DID EXPERIENCE SEVERE NAUSEA AND VOMITING TODAY; MEDICATED PRN ONDANSETRON ODT. REQUESTED BREATHING TREATMENT x2 TODAY. ORDER FOR 40MG ADDITIONAL TORSEMIDE FOR SOB AND FLUID OVERLOAD. BED IN LOWEST POSITION. CALL LIGHT WITHIN REACH. ALL NEEDS MET. REPORT TO ONCOMING RN.
[2023-11-06 19:20] VITALS: BP 128/94
[2023-11-07 03:50] VITALS: BP 145/95
--- NOTE | 2023-11-07 04:50 | NUR ---
SHIFT SUMMARY: Pt is admitted for open wound of right foot and is a DNR. is currently of comfort care. Is alert and able to make needs known. ADLs have been SBA. on ISO for MRSA. denies pain or discomfort when asked.
--- NOTE | 2023-11-07 17:02 | NUR ---
SHIFT SUMMARY PT RESTING QUIETLY AT START OF SHIFT. WOKE EASILY FOR CARE. PT SITTING UP TO EOB, SELF. PT ON COMFORT CARE. MEDICATED PER EMAR FOR C/O PAIN TO R FOOT. PT WAITING FOR INSURANCE TO CLEAR FOR HOSPICE HOUSE, PER REPORT. MULTIPLE FAMILY AND FRIENDS IN TO VISIT THRU OUT THE DAY. PT CONTINUES TO DENY NEEDS. SITTING UP IN BED WATCHING TV. ABLE TO MAKE NEEDS KNOWN. CALL LT IN REACH.
--- NOTE | 2023-11-08 06:53 | NUR ---
SHIFT SUMMARY: Pt is admitted for open wound of right foot and is a DNR. is currently of comfort care. Is alert and able to make needs known. ADLs have been SBA. on ISO for MRSA. denies pain or discomfort when asked. Was given PRN diladid to aid with breathing.
--- NOTE | 2023-11-08 17:46 | NUR ---
SHIFT SUMMARY PT RESTING QUIETLY AT START OF SHIFT. WOKE EASILY FOR CARE. PT INCONTINENT OF BLADDER. BED LINENS AND CLOTHES CHANGED PRIOR TO BREAKFAST. PT ALSO GIVEN BED BATH. PT HAS BEEN PLEASANT AND CO-OP WITH CARE. NO C/O. MEDICATIONS TAKE WHOLE WITH WATER. DENIES FURTHER NEEDS. PT CONTINUES TO WAIT FOR INSURANCE TO D/C ON HOSPICE. CALL LT IN REACH.
--- NOTE | 2023-11-09 06:47 | NUR ---
SHIFT SUMMARY: Pt is admitted for open wound of right foot and is a DNR. is currently of comfort care. Is alert and able to make needs known. ADLs have been SBA. on ISO for MRSA. denies pain or discomfort when asked. Was given PRN dilaudid to aid with breathing.
--- NOTE | 2023-11-09 17:57 | NUR ---
SHIFT NOTE: PT ALERT AND ABLE TO MAKE NEEDS KNOWN USING THE CALL LIGHT. PT HAS BEEN SBA FOR ADLS. HE IS ABLE TO TOLERATE PO INTAKE AND TAKES HIS PILLS WHOLE WITH THIN LIQUIDS. HE IS WAITING ON PLACEMENT FOR DC. WILL CONTINUE TO MONITOR AND REPORT TO ONCOMING RN
--- NOTE | 2023-11-10 05:46 | NUR ---
NOC SUMMARY- PT HAS REMAINED COMFORTABLE. PT TX FOR DISCOMFORT PER APR WITH RELIEF. PT SLEPT OFF AND ON. PT VOIDING VIA URINAL. PT TAKING IN PO FLUIDS. PT HAS NO COMPLAINTS. CALL LIGHT IN REACH.
--- NOTE | 2023-11-10 14:50 | NUR ---
Patient is riding his motorized wheelchair in the hallway and I walk with the patient back to her room. She tells me about the help from her friends and about the hallucinations that have her baffled. She tells me that she is having a horrible time seperating her hallucinations from reality. She asks me to look up (on the internet) end stage sepsis and end stage DKA to find out what the symptoms are. Both include confusion and possibility of AMS. I provided prayer for the patient and then the patient prayed a prayer of gratitude for her friends who have helped her out in this season. I also provided anxiety containment and and a calming presence. Patient repsonded well to all interventions and showed signs of greater peace.
--- NOTE | 2023-11-10 19:07 | NUR ---
SHIFT SUMMARY PATIENT A/OX4, ABLE TO MAKE NEEDS KNOWN. TRANSFERS STAND BY ASSIST TO ELECTRIC WHEELCHAIR. VISITED WITH FRIEND THIS AFTERNOON AND STORAGE MANAGEMENT ARCHITECT VISITED WITH PATIENT WELL. DAILY WOUND CARE UNABLE TO BE PROVIDED THIS SHIFT AND NOC SHIFT NURSE INFORMED AND AGREEABLE TO DO DRESSING CHANGES. DRESSINGS ARE CLEAN DRY AND INTACT. PATIENT COMPLAINING OF RIGHT FOOT PAIN AND PRN MEDICATION ADMINISTERED PER MAR WELL SCHEDULED PAIN MEDS. PATIENT ASSISTED TO BEDSIDE COMMODE THIS MORNING AND HAD BOWEL MOVEMENT. ALSO ASKING IF MAIL IS DELIVERED TO PATIENT'S HERE PATIENT IS EXPECTING A PACKAGE LATER THIS WEEK. SWAPNIL NOTIFIED AND STATES MAIL HAS BEEN DELIVERED IN THE PAST, WILL CHECK WITH PATIENT AGAIN TOMORROW MORNING REGARDING PACKAGE DELIVERY. NO OTHER CONCERNS THIS SHIFT.
--- NOTE | 2023-11-11 04:45 | NUR ---
NOC SUMMARY- PT DISCOMFORT HAS BEEN TX PER MAR WITH RELIEF. PT DRESSINGS CHANGED THIS AM. PT HAS RESTED QUIETLY. PT DENIES ANY ISSUES OR CONCERNS. CALL LIGHT IN REACH.
[2023-11-11 14:15] VITALS: BP 112/91
--- NOTE | 2023-11-11 14:16 | NUR ---
PATIENT SLIPPED FROM SHOWER CHAIR REACHING FOR AN EXTRA TOWEL. SKIN TEAR NOTED TO RIGHT GOMEZ, DRESSING PLACED. VITAL SIGNS OBTAINED. PATIENT DENIES ANY PAIN RELATED TO FALL. DR. NEELY INFORMED. WILL CONTINUE TO MONITOR.
--- NOTE | 2023-11-11 18:06 | NUR ---
SHIFT SUMMARY PATIENT A/OX4, ABLE TO MAKE NEEDS KNOWN. DRESSING CHANGED TO RIGHT FOOT THIS AFTERNOON AFTER SHOWER. PATIENT CONTINUES TO DENY ANY PAIN OR INJURY RELATED TO FALL. MD AND CHARGE NURSE AWARE OF FALL. PALLIATIVE CARE INFORMED OF PATIENT'S REQUEST OF ANOTHER VOLUNTEER MADE QUILT AND STATES WILL OBTAIN NEW QUILT FOR PATIENT AND DELIVER TOMORROW WELL TAKE OLD QUILT TO GET IT LAUNDERED. PATIENT RECIEVED PACKAGE IN THE MAIL SHE HAS BEEN WAITING FOR TODAY AND ALSO HAD A VISITOR THIS EVENING. PIV REMOVED, NO PIV ORDER IN PLACE. NO OTHER CONCERNS AT THIS TIME.
--- NOTE | 2023-11-12 05:37 | NUR ---
NOC SUMMARY- NO NEW ISSUES NOTED. PT REMAINS COMFORTABLE. PT RLE DRESSING CHANGED DUE TO COMING OFF. PT VOIDING WELL AND DRINKING PO FLUIDS. PT HAS NO COMPLAINTS. CALL LIGHT IN REACH.
--- NOTE | 2023-11-12 17:37 | NUR ---
SHIFT SUMMARY: NO EVENTS OF CHANGES WITH THE PATIENT THROUGHOUT THE SHIFT. PATIENT MAKES NEEDS KNOWN, EXPRESSED PAIN THIS MORNING. SHE IS IN BED, ALERT, WATCHING TV, CALL LIGHT WITHIN REACH, NO SIGNS OR SYMPTOMS OF DISTRESS, PLAN OF CARE ONGOING. AWAITING APPROVAL FOR HOSPICE/PLACEMENT.
[2023-11-12 19:39] VITALS: BP 140/83
--- NOTE | 2023-11-13 05:13 | NUR ---
SHIFT SUMMARY. PATIENT IS A&O X2-3. PATIENT BELIEVES SHE WILL BE TRANSFERING TO CARE FACILITY IN [place] TODAY. PATIENT C/O PAIN X2-MEDICATED WITH PRN NORCO-SEE ORDERS. PATIENT RESTED T/O NIGHT WITH RESPIRATIONS EQUAL AND UNLABORED. PATIENT HAD SHOWER THIS AM, LINENS CHANGED, AND WOUND CARE DONE-PATIENT SAID SHE DOES NOT WEAR A BANDAGE ON THE LEFT LEG SO SHE CAN WEAR HER PROSTETIC SOCK. PATIENT IS PLEASANT AND COOPERATIVE WITH CARE. PATIENT IS ON COMFORT CARE-NOT IMMINENT. BED IS LOCKED IN THE LOWEST POSITION WITH CALL LIGHT IN REACH. CARE IS ONGOING.
--- NOTE | 2023-11-13 16:47 | NUR ---
SHIFT SUMMARY PT AXO, PLEASANT AND COOPERATIVE WITH CARE. ON COMFORT CARE, NO CHANGES. SCHEDULED PAIN MEDICATION PER EMAR, PT REMAINS COMFORTABLE. BED IN LOW POSITION, CALL LIGHT WITHIN REACH. CALLS APPROPRIATLY
--- NOTE | 2023-11-14 05:29 | NUR ---
COMFORT CARE SUMMARY PATIENT IS ALERT AND ORIENTED. PATIENT HAS HAD NO ACUTE EVENTS THIS SHIFT. PATIENT HAS HAD NO COMPLAINTS OF PAIN, NAUSEA, VOMITTING OR SOB THIS SHIFT. PATIENT HAS SLEPT GOOD MOST OF SHIFT. BED IN LOWEST AND LOCKED POSITION.
--- NOTE | 2023-11-14 18:30 | NUR ---
SHIFT SUMMARY: PATIENT WAS OUT AND ABOUT TODAY IN HER ELECTRIC WHEELCHAIR. GOT WOUND CARE AND DRESSING CHANGES ON WOUNDS TODAY. DID REQUEST PAIN MEDICATION INBETWEEN SCHEDULED PAIN MEDICATION TIMES; WHICH IS UNUSUAL FOR HER. SHE IS EAGER TO GET OUT OF THE HOSPITAL AND HEAR ABOUT PLACEMENT. NO NEW UPDATES ON MEDICAID APPROVAL FOR PLACEMENT AT THIS TIME. PLAN OF CARE ONGOING.
--- NOTE | 2023-11-15 05:55 | NUR ---
COMFORT CARE SUMMARY PATIENT IS ALERT AND ORIENTED. PATIENT HAS BEEN SLEEPING ALL SHIFT. PATIENT HAS NOT NEEDED ANY MEDICATIONS FOR PAIN, NAUSEA OR VOMITTING. BED IN LOCKED AND LOWEST POSITION. CALL LIGHT IN PLACE. WILL MONITOR UNTIL SHIFT CHANGE.
--- NOTE | 2023-11-15 11:03 | NUR ---
PT UPDATE: PT REPORTS FEELING "SOUR." PT ASKED ABOUT TAKING INSULIN. THIS RN OFFERED TO TAKE CBG, PATIENT AGREEABLE. POC GLUCOSE 499. PT DECLINED INSULIN. PT CRYING AT BEDSIDE AND AGREEABLE TO SPEAKING WITH CLERK SPECIALIST.
--- NOTE | 2023-11-15 12:15 | NUR ---
Call back - Pt was roaming the halls utilizing the scooter. Took pt outside and provided space for reflection and provided clarifying questions to current predicament of choosing to take insulin or not. Pt was still vacilating whether or not to. Pt was able to identify grandchildren as a reason to take insulin to extend life. We considered other positive moments of life to alleviate current stressors. Supervisor Stave Cutting validated pt's feelings and extended a prayer for wisdom in decision making. He verbalized gratitude for the visit.
--- NOTE | 2023-11-15 18:34 | NUR ---
SHIFT NOTE: PT CONTINUES TO DECLINE INSULIN. HE CONTINUES TO REPORT SORE MOOD. DECLINES NEEDS OR WANTS. SHE HAS BEEN ROLLING AROUND THE UNIT AT [facility]IL[facility] TENDER TO VISIT TODAY AND TOOK PT OUTSIDE FOR A THERAPUETIC VISIT. PLAN IS STILL WAITING ON INSURANCE PLACEMENT. WILL CONTINUE TO MONITOR AND REPORT TO ONCOMING RN
[2023-11-15] MEDS ORDERED: Insulin Glargine-Yfgn 100 Unit/mL 3 ML SYR SC SCH (21:00)
--- NOTE | 2023-11-16 07:48 | NUR ---
SHIFT SUMMARY PT A&OX4, PLEASANT AND COOPERATIVE OF CARES. DENIES PAIN. PT REMAINS ON COMFORT CARE. TOLERATING A CONS CARB DIET, BUT EATING WHAT SHE WANTS. BG ON DAYS WAS 499, SO TONIGHT SHE GOT 20 UNITS OF GLARGINE. SHE EXCEPTED DOSE BECAUSE SHE SAID SHE DOES NOT WANT TO IN THIS HOSPITAL. UP SBA/I WITH PROSTHETIC TO BSC, OR PTS ELECTRIC SCOOTER. VOIDING IN BSC OR URINAL. BED IN LOWEST POSITION, CALL LIGHT WITHIN REACH.
[2023-11-16] MEDS ORDERED: Insulin Human Lispro 100 Units/ML 3ML Syringe SC ONE (12:50)
--- NOTE | 2023-11-16 12:51 | NUR ---
PT HAD A HIGH CBG OF [address] KLEIN. PREFERABLY DR KLEIN WOULD LIKE TO SEE PT WANT TO MONITOR CBGs AND HAVE SCHEDULE INSULIN HOWEVER PT IS ON COMFORT CARE. PT WAS GIVEN CHOICE TO HAVE SCHEDULED FAST ACTING INSULIN AND GET SCHEDULED CHECKS,BUT PT DID NOT WANT THIS. DR KLEIN HAD A ONE TIME DOSE ADDED TO EMAR WITH PT'S AGREEMENT.
--- NOTE | 2023-11-16 16:20 | NUR ---
PT WAS KEPT COMFORTABLE THROUGHOUT HER CARE TODAY. FAMILY REQUESTED MINIMAL TURNING OF PT. PT TREATED FOR PAIN PER EMAR. PT'S TOD WAS PRONOUNCED AT 1455. PICKED UP AT 1615 BY [facility] [facility] LICENSE ISSUER [place]. FAMILY HAD APPROVED HAIR SPRING CUTTER.
--- NOTE | 2023-11-16 16:20 | NUR ---
Spiritual care visit conducted. Patient is on her wheelchair and when I arrive she asks if we could talk outside. She tells me that his granddaughter asked her if she was going to . She said she didn't know what to tell her. Then she told the patient that she had said that she would not in the hospital. This troubled the patient so she took the badly needed insulin. Once we got outside she said, "I have become addicted to your short prayers and the feeling I have with you that you actually give a s___ about me." I admit to the patient that many times when I visit I wonder if I am of any value to the patient but to hear her say that, makes it all seem more meaningful. We continue the discussion about , dying, and what it looks like for to have some say over something (she feels a loss of dignity and of choice). She explains that this is why she wants to decide each day if she wants insulin or not. She told me that taking insulin the last time felt like it cut across what she truly wanted. We return to the room where the patient asked me to pray. Patient becomes tearful and we hug. Patient voices appreciation for the visit and for help sorting out her own feelings.
--- NOTE | 2023-11-17 07:49 | NUR ---
SHIFT SUMMARY PT A&OX4, PLEASANT AND COOPERATIVE OF CARES. DENIES PAIN. PT REMAINS ON COMFORT CARE. TOLERATING A CONS CARB DIET, BUT EATING WHAT SHE WANTS. UP SBA/I WITH PROSTHETIC TO BSC, OR PTS ELECTRIC SCOOTER. VOIDING IN BSC OR URINAL. PT WAS INCONTINENT, NEEDING A FULL BED CHANGE. BED IN LOWEST POSITION, CALL LIGHT WITHIN REACH.
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
--- NOTE | 2023-11-17 18:25 | NUR ---
SHIFT SUMMARY: PT AOX4 BREATHING UNLABORED. PT ROLLING AROUND UNIT IN WHEELCHAIR. IN GOOD MOOD WITH BLANKET BACK FROM PALLIATIVE NURSE. SEEMS IN PLEASANT AFFECT. COMPLIANT WITH MEDICATIONS AND RESTING WHILE WAITING FOR PLACEMENT. NO COMPLAINTS ON DRESSING AND PAIN CONTROLLED PER EMR. PT RESTING IN BED, BED IN LOWEST POSITION AND CALL LIGHT IN REACH.
--- NOTE | 2023-11-17 19:08 | NUR ---
THIS CANNING MACHINE OPERATOR HAS REVIEWED AND AGREES WITH ALL NOTES AND ASSESSMENTS BY GREGORIO VIRAMONTES.
[2023-11-17 22:25] LABS: Bun/Creatinine Ratio 30.4 (12.0-20.0); Creatinine, Blood 1.02 mg/dL (0.40-1.00); Potassium, Blood 4.6 mmol/L (3.5-5.5)
[2023-11-17] MEDS ORDERED: Insulin Human Lispro 100 Units/ML 3ML Syringe SC ONE (22:50)
--- NOTE | 2023-11-18 06:06 | NUR ---
SHIFT SUMMARY PT A&OX4, PLEASANT AND COOPERATIVE OF CARES. DENIES PAIN. PT REMAINS ON COMFORT CARE. TOLERATING A CONS CARB DIET, BUT EATING WHAT SHE WANTS. BG TONIGHT WAS >500, CONFIRMED WITH LAB, CRITICAL BG WAS 694. NOTIFIED MD, SEE NEW ORDERS. UP SBA/I WITH PROSTHETIC TO BSC, OR PTS ELECTRIC SCOOTER. VOIDING IN BSC OR URINAL. BED IN LOWEST POSITION, CALL LIGHT WITHIN REACH.
[2023-11-18] MEDS ORDERED: Insulin Human Lispro 100 Units/ML 3ML Syringe SC SCH (07:30)
[2023-11-18 07:49] VITALS: BP 156/89
--- NOTE | 2023-11-18 18:21 | NUR ---
SHIFT SUMMARY MR SAUCEDA HAS PAIN TO RIGHT FOOT AND GOMEZ WHICH HE DESCRIBES A CONSTANT 6/10 AND TOLERABLE WITH PO MEDICATIONS. HE DENIES SOB. UP FREQUENTLY IN HIS PERSONAL WHEELCHAIR. UP TO THE SHOWER THIS AFTERNOON AND RIGHT FOOT AND LEFT STUMP REDRESSED AFTER SHOWER. HE NEEDS MEPILEX REAPPLIED TO BUTTOCKS ONCE HE GETS BACK IN BED. MR SAUCEDA WAS IN AGREEMENT WITH GETTING BLOOD SUGAR CHECKS AND INSULIN SLIDING SCALE COVERAGE TODAY.
--- NOTE | 2023-11-19 03:55 | NUR ---
SHIFT SUMMARY 58 YR F (AMAB) ADMITTED ON 10/08/23. DNR. NO ACUTE CHANGES THIS SHIFT. PT IS DOING WELL GETTING INTO THE WHEELCHAIR BY HERSELF AND LIKES TO WHEEL AROUND IN THE HALLWAY. HER DEMEANOR IS PLEASANT AND COOPERATIVE. NO SIGNS OF CONFUSION THIS SHIFT. NEW MEPILEX PLACED ON COCCYX THIS SHIFT.
--- NOTE | 2023-11-19 08:38 | NUR ---
Spiritual care consult LATE NOTE from a visit with the patient on 11/18/23 from 1530 to 1630. 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 Much of the conversation took place outside of the patient's room as she had requested time to go outside to get fresh air. I provided encouragement, prayer and a kind presence. Patient responded well and voiced appreciation for the visit.
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
--- NOTE | 2023-11-19 12:37 | NUR ---
PATIENT WITH BLOOD SUGAR 377. 10 UNITS SLIDING SCALE ADMINISTERED. MD NOTIFIED AND STATED WOULD POSSIBLY ADJUST LONG ACTING INSULIN. NO OTHER CONCERNS AT THIS TIME.
--- NOTE | 2023-11-19 16:46 | NUR ---
NOTIFIED VIA TELEPHONE OF BLOOD SUGAR IN 400s. NO NEW ORDERS AT THIS TIME. PATIENT ASYMPTOMATIC.
--- NOTE | 2023-11-19 18:15 | NUR ---
SHIFT SUMMARY PATIENT A/OX4, ABLE TO MAKE NEEDS KNOWN. COMPLAINING OF RIGHT FOOT PAIN, SCHEDULED MEDICATIONS AND PRN GIVEN X1 THIS SHIFT. PATIENT INDEPENDENT IN ROOM WITH TRANSFERS AND USES ELECTRIC WHEELCHAIR. PATIENT RECIEVED PACKAGE FROM [employer] TODAY TO HOSPITAL ROOM AND STATES EXCITEMENT OF NEW CLOTHING RECIEVED. PATIENT WITH ELEVATED BLOOD SUGARS IN 300s AND 400s TODAY, MD NOTIFIED AND LONG ACTING INSULIN INCREASED. REMAINS ON HIGH SLIDING SCALE. WOUND CARE PROVIDED TO RIGHT FOOT, NO OTHER CONCERNS AT THIS TIME.
[2023-11-19] MEDS ORDERED: Insulin Glargine-Yfgn 100 Unit/mL 3 ML SYR SC SCH (21:00)
--- NOTE | 2023-11-20 03:56 | NUR ---
SHIFT SUMMARY 58 YR F (AMAB) ON COMFORT CARE. NO ACUTE CHANGES THIS SHIFT. PT BS @ 2023 WAS 285, THE LOWEST OF THE DAY. SHE RECEIVED 1 UNIT OF HUMALOG AND 30 UNITS OF LANTIS. PT STATED THAT SHE WAS IN A GOOD MOOD AFTER RECEIVING POSITIVE FEEDBACK ON FACEBOOK CONCERNING HER MENTAL AND PHYSICAL CIRCUMSTANCES. SHE HAS SPENT HOURS IN HER WHEELCHAIR THIS SHIFT AND ENJOYS ROAMING UP AND DOWN THE HALLS. SHE HAS BEEN INDEPENDANT TO THE BEDSIDE COMMODE.
[2023-11-20 07:47] VITALS: BP 111/68
--- NOTE | 2023-11-20 17:16 | NUR ---
SHIFT SUMMARY PATIENT A/OX4, ABLE TO MAKE NEEDS KNOWN. BLOOD SUGAR ELEVATED TODAY IN 300s. SCHEDULED PAIN MEDICATIONS EFFECTIVE. COMPLAINING OF NAUSEA AROUND LUNCH TIME TODAY, ZOFRAN EFFECTIVE. NO OTHER CONCERNS.
--- NOTE | 2023-11-21 04:24 | NUR ---
PT ALERT AND ORIENTED X4. PT UP IN WC INDEPENDENTLY. VISITORS AT BEDSIDE. PT RETURNED SELF TO BED. PT DENIES C/O PAIN. PT RESTING QUIETLY IN BED AT THIS TIME.
--- NOTE | 2023-11-21 08:00 | NUR ---
pt laying in bed watching tv, a/ox4, cooperative with care, follows commands well, pt is on comfort care, reports pain about a 5/10, lungs are clear t/o, resp even and unlabored, no cough noted, hrr, btx4, had a bm this am, voids without diff, skin has wounds to left bka stump with dressings in place, right foot has dressing, no drainage noted, maew, gets up indep into wheelchair, fern, call light in reach.
--- NOTE | 2023-11-21 17:03 | NUR ---
Review of dischareg plan pt struggling today with being in hospital. Supportive visit.
--- NOTE | 2023-11-21 19:39 | NUR ---
pt has been up in wheelchair out in halls throughout the day, no acute changes this shift. call light in reach.
--- NOTE | 2023-11-22 04:27 | NUR ---
PT RESTING QUIETLY IN BED WITH EYES CLOSED RESP EVEN AND UNLABORED. NO DISTRESS NOTED. PT OOB UP TO W/C AT SHIFT CHANGE. PT REPORTED PAIN AT THAT TIME AND STATE, "BUT ITS NOT TOO BAD. IM OK."
--- NOTE | 2023-11-22 08:00 | NUR ---
pt sitting up eating breakfast, a/ox4, pleasant and cooperative with care, seems to be in good spirits today, states had a good night, is having pain in foot, is ok with the am morphine, no needs at this time, call light in reach.
--- NOTE | 2023-11-22 11:52 | NUR ---
changed dressings to both le after cleansing, with sure cleans, applied dressings as they were. pt tolerated well, call light in reach.
--- NOTE | 2023-11-22 18:07 | NUR ---
pt in good spirits, no acute changes has been out of room in wheelchair, call light in reach.
--- NOTE | 2023-11-23 02:40 | NUR ---
PT UP IN ROOM AD CRUZ. PT DENIES C/O. NO DISTRESS NOTED. PT RESTING QUIETLY IN BED WITH EYES CLOSED.
--- NOTE | 2023-11-23 12:08 | NUR ---
HOSPITALIST CONTACTED. NOTIFIED OF PATIENTS CBG OF 415. DR. ESTRELLA ORDERED TO CHANGE CORRECTION SCALE TO HIGH SLIDING SCALE AND TO CORRECT BLOOD SUGAR WITH HIGH SLIDING SCALE.
[2023-11-23] MEDS ORDERED: Insulin Human Lispro 100 Units/ML 3ML Syringe SC SCH ×2 (12:25→16:30)
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
--- NOTE | 2023-11-23 20:20 | NUR ---
SHIFT SUMMARY. PATIENT IS A&OX4 WITH CONFUSION AT TIMES. PATIENT UP IN MOTORIZED WHEELCHAIR TODAY. NO ACUTE CHANGES. PATIENT MEDICATED WITH SCHEDULED PAIN MEDS AND DENIED ANY NEEDS FOR ADDITIONAL PAIN MEDICATIONS. BED IS LOCKED IN THE LOWEST POSITION WITH CALL LIGHT IN REACH. REPORT GIVEN TO [facility] PL[facility]NER NURSE OFELIA.
--- NOTE | 2023-11-24 04:46 | NUR ---
PT OOB UP TO WC INDEPENDENTLY AD CRUZ. PT RETURNED TO BED INDEPENDENTY, PT RESTED QUIETLY THROUGH THE NIGHT. NO DISTRESS NOTED.
[2023-11-24] MEDS ORDERED: Insulin Glargine-Yfgn 100 Unit/mL 3 ML SYR SC SCH (09:00)
[2023-11-24] MEDS ORDERED: Insulin Human Lispro 100 Units/ML 3ML Syringe SC SCH ×2 (11:30→21:00)
--- NOTE | 2023-11-24 18:43 | NUR ---
DRESSING CHANGED TO RIGHT FOOT, NEW XEROFORM, 4X4, GAUZE WRAP AND ZACH WRAP APPLIED, PATIENT TOLERATED WITH EASE, MEDICATED FOR PAIN, PT TO SEE PATIENT TOMORROW, INSURANCE HAS ACCEPTED TO PAY FOR A FACILITY, PT NOTE NEED FOR ACTIVITY STAUS/NEEDS, S/S INSULIN INCREASED TO HIGH SCALE, PATIENT ATE ALL MEALS, GOOD APPETITE, CALL LIGHT WITH IN REACH, PAITENT CLEARLY MAKES NEEDS KNOWN, WILL RELAY TO PM GREGORIO
--- NOTE | 2023-11-25 03:53 | NUR ---
PT OOB AD CRUZ UP TO BR FOR ADLS INDEPENDENTLY USING WC. PT RESTING QUIETLY IN BED WITH EYES CLOSED. NO DISTRESS NOTED.
[2023-11-25] MEDS ORDERED: ABILIFY MYCITE5 M2 PO (13:04)
[2023-11-25] MEDS ORDERED: Glucose Gel38 GM PO (13:05)
[2023-11-25] MEDS ORDERED: NYSTOP15 GM TOP (13:06)
[2023-11-25] MEDS ORDERED: MORP20L SL (13:08)
[2023-11-25] MEDS ORDERED: MIRALAX17 GM PO (13:09)
[2023-11-25] MEDS ORDERED: ONDA4ODT MM (13:09)
--- NOTE | 2023-11-25 14:57 | NUR ---
Spiritual care visit conducted. Patient is waiting for me at the elevators and is tearful as she expresses her gratitude for the time, care and encouragement. She asks if we can go down stairs and grab a few snacks for her trip to [facility]. We do and she gets snacks. She shares about her fears, and hopes. She tells me that she has started journalling and my advice and that it has been therapeutic. I give her my card and she says she will write. and maybe send me a song. I provide hugs, prayers and reassurance. She voices appreciation again with tears.
--- NOTE | 2023-11-25 15:03 | NUR ---
LEFT MESSAGE WITH [facility], NO RETURN CALL BACK NOW, TRANSPORTATION JUST RECEIVED PATIENT AND WILL BE HEADING TO [place]
== END 2023-11-25 15:09 | disposition hospice, home (50) | DRG 564 ==
LOC: ER 23:32 → ICUE 10-08 02:05 → MEDS 10-08 02:05 → ICUE 10-08 03:05 → MEDS 10-09 19:59 → ENPENDDIS 11-25 13:27 → MEDS 11-25 15:09
PROVIDERS: Emergency Medicine; Internal Medicine; Nurse Practitioner Acute Care; Student in an Organized Health Care Education/Training Program; ADMIT Student in an Organized Health Care Education/Training Program
PROC: B41D1ZZ Fluoroscopy of Aorta and Bilateral Lower Extremity Arteries using Low Osmolar Contrast (ICD-10-PCS; principal; 2023-10-08)
PROC: 3E03329 Introduction of Other Anti-infective into Peripheral Vein, Percutaneous Approach (ICD-10-PCS; 2023-10-08)
DX: T87.43 Infection of amputation stump, right lower extremity (principal); A41.9 Sepsis, unspecified organism; E11.10 Type 2 diabetes mellitus with ketoacidosis without coma; R65.20 Severe sepsis without septic shock; I50.22 Chronic systolic (congestive) heart failure; M86.8X7 Other osteomyelitis, ankle and foot; L03.115 Cellulitis of right lower limb; E11.69 Type 2 diabetes mellitus with other specified complication; Z66 Do not resuscitate; Z51.5 Encounter for palliative care; E11.51 Type 2 diabetes mellitus with diabetic peripheral angiopathy without gangrene; I25.10 Atherosclerotic heart disease of native coronary artery without angina pectoris; S91.301A Unspecified open wound, right foot, initial encounter; E11.42 Type 2 diabetes mellitus with diabetic polyneuropathy; K21.9 Gastro-esophageal reflux disease without esophagitis; F32.A Depression, unspecified; I70.222 Atherosclerosis of native arteries of extremities with rest pain, left leg; L89.151 Pressure ulcer of sacral region, stage 1; I11.0 Hypertensive heart disease with heart failure; I25.5 Ischemic cardiomyopathy; Y83.8 Other surgical procedures as the cause of abnormal reaction of the patient, or of later complication, without mention of misadventure at the time of the procedure; Z86.14 Personal history of Methicillin resistant Staphylococcus aureus infection; Z87.891 Personal history of nicotine dependence; Z98.890 Other specified postprocedural states; Z89.411 Acquired absence of right great toe; Z89.512 Acquired absence of left leg below knee; Z88.8 Allergy status to other drugs, medicaments and biological substances; Z79.4 Long term (current) use of insulin; Z79.82 Long term (current) use of aspirin; Z79.2 Long term (current) use of antibiotics; Z79.899 Other long term (current) drug therapy; Z95.1 Presence of aortocoronary bypass graft
CPT/HCPCS: 36200; 36245; 36415; 73620; 73701; 75625; 75716; 75774; 76937; 80048; 80053; 80202; 82010; 82803; 82947; 83605; 83735; 83880; 84100; 85025; 86141; 87040; 94640; 94664; 94760; 94762; 96374; 97162; 97164; 97530; 99152; 99285; A9270; C1760; C1769; C1887; C1894; J0692; J1610; J1644; J1650; J1815; J2185; J2250; J2405; J3010; J3370; J7030; J7040; J7050; J7120; J7799; Q9967